=== PATIENT | female | born 1955 | race Hispanic/Latino ===

== ENCOUNTER 2017-08-08 13:23 | Emergency (ER) | payer OTHER, SELFPAY | END 2017-08-08 14:22 | disposition home or self-care (01) | LOC: ERS 13:23 | DX: S90.812A Abrasion, left foot, initial encounter (principal); I10 Essential (primary) hypertension; Z79.899 Other long term (current) drug therapy; V03.99XA Pedestrian with other conveyance injured in collision with car, pick-up truck or van, unspecified whether traffic or nontraffic accident, initial encounter | CPT/HCPCS: 99283 ==

== ENCOUNTER 2018-06-07 02:11 | Outpatient (CLI) | payer SELFPAY ==
[2018-06-07 13:08] LABS: #Eosinphils 0.2 thou/uL (0.0-0.7); #Lymphocytes 1.4 thou/uL (1.20-3.40); #Monocytes 0.6 thou/uL (0.11-0.59); #Neutrophils 7.9 thou/uL (1.40-6.50); %Basophils 0.5 % (0.0-1.0); %Eosinophils 1.8 % (0.0-10.0); %Lymphocytes 13.9 % (21.0-51.0); %Monocytes 6.3 % (0.0-10.0); %Neutrophils 77.6 % (42.0-75.0); Hemoglobin 11.9 g/dL (12.0-16.0); Mean Corpuscular HGB CONC 32.9 g/dL (32.0-36.0); Mean Corpuscular Hemoglobin 29.6 pg (27.0-31.0); Mean Corpuscular Volume 89.8 fL (78.0-98.0); Mean Platelet Volume 6.3 fL (7.4-10.4); Platelet Count 424 thou/uL (130-400); RBC Distribution Width 11.5 % (11.5-14.5); Red Blood Cell (RBC) Count 4.04 mill/uL (4.20-5.40); White Blood Cell (WBC) Count 10.2 thou/uL (4.8-10.8)
[2018-06-07 13:24] LABS: ALT (SGPT) 18 U/L (8-55); AST (SGOT) 32 U/L (5-34); Albumin 3.7 g/dL (3.4-4.8); Alkaline Phosphatase 113 U/L (40-150); Anion Gap 10 mmol/L (10-20); BUN (Urea Nitrogen) 16 mg/dL (9.8-20.1); Bilirubin, Total 0.4 mg/dL (0.2-1.2); Calc. Creatinine Clearance 0 mL/min (70-130); Calcium 8.8 mg/dL (7.8-10.44); Carbon Dioxide 24 mmol/L (23-31); Chloride 105 mmol/L (98-107); Estimated GFR-MDRD 61; Globulin 3.2 g/dL (2.4-3.5); Glucose 114 mg/dL (80-115); Potassium 3.7 mmol/L (3.5-5.1); Protein, Total 6.9 g/dL (6.0-8.3); Sodium 135 mmol/L (136-145)
--- NOTE | 2018-06-07 14:49 | EKG ---
Test Reason : Blood Pressure : / mmHG Vent. Rate : 106 BPM Atrial Rate : 106 BPM P-R Int : 126 ms QRS Dur : 072 ms QT Int : 348 ms P-R-T Axes : 046 007 016 degrees QTc Int : 462 ms Sinus tachycardia Cannot rule out Anterior infarct , age undetermined Abnormal ECG When compared with ECG of 02-JAN-2016 15:45, T wave inversion no longer evident in Lateral leads QT has lengthened Confirmed by HERMAN GOODWIN, . SRebeca ([id number]) on 06/07/2018 2:48:47 PM Referred By: DAYANA Confirmed By:DR. Nikki SUTTON MD
== END 2018-06-07 02:12 | disposition home or self-care (01) ==
LOC: LABBT 02:11
PROVIDERS: ATTEND Surgery
DX: Z01.818 Encounter for other preprocedural examination (principal); C50.919 Malignant neoplasm of unspecified site of unspecified female breast
CPT/HCPCS: 80053; 85025; 93005; 93010

== ENCOUNTER 2018-06-10 06:55 | Day surgery (SDC) | payer MEDICAID, SELFPAY ==
[2018-06-07 12:49] VITALS: BMI 30.7
[2018-06-10] MEDS ORDERED: Sodium Chloride 0.9% 10 ML ONE (07:48)
[2018-06-10] MEDS ORDERED: Lidocaine 2% w/Epinephrine 1:200K 20 ML VIAL ONE (08:36)
[2018-06-10] MEDS ORDERED: Bupivacaine/Epinephrine 0.25% 30 ML VIAL ONE (08:36)
[2018-06-10] MEDS ORDERED: Lidocaine 2% PF 5 ML VIAL ONE (08:38)
[2018-06-10] MEDS ORDERED: Propofol 500 MG/50 ML VIAL ONE (08:42)
[2018-06-10] MEDS ORDERED: Fentanyl 100 MCG/2 ML VIAL ONE (09:10)
[2018-06-10] MEDS ORDERED: Morphine 2 MG/ML SYRINGE ONE (10:07)
--- NOTE | 2018-06-10 10:12 | RAD ---
FXR Chest 1 View Portable History: [Port catheter placement] Comparison: None. Findings: Mild atelectasis at lung bases. No pneumothorax. No focal airspace consolidation. Port cath eter tip is in the cavoatrial atrial junction. Impression: Uncomplicated placement portacatheter.
[2018-06-10] MEDS ORDERED: PROPOFOL 200 MG/20 ML VIAL ONE (15:23)
--- NOTE | 2018-06-11 09:57 | OP ---
DATE OF PROCEDURE: 06/10/2018 PROCEDURE PERFORMED: Left internal jugular MediPort placement on 06/10/2018. PREOPERATIVE DIAGNOSIS: Inflammatory right breast cancer. POSTOPERATIVE DIAGNOSIS: Inflammatory right breast cancer. HISTORY: Ms. Villasenor is a 62-year-old woman with neglected inflammatory breast cancer and severe lymphedema of the right arm. She is going to begin chemotherapy soon and requires access for this placement of a MediPort on the left, uninvolved side was recommended. DESCRIPTION OF PROCEDURE: After informed consent was obtained and appropriate preoperative antibiotics were administered, the patient was taken to the operating room where she was placed in supine position and anesthesia was administered. She was prepped and draped in the standard sterile fashion. The left subclavian vein was accessed by the standard approach while the patient was in Trendelenburg. However, the flow was somewhat sluggish and the wire would not advance. Therefore, a sterile ultrasound was obtained and patent compressible left internal jugular vein accessed under direct ultrasound guidance. The flow was good and the wire threaded easily. This was confirmed by ultrasound to be in the patent compressible vessel in the neck and with the tip in the superior vena cava by fluoroscopy. The MediPort was obtained and a subcutaneous pocket created in the chest after local anesthesia was infused. The hub was secured and the MediPort tubing was tunneled from this site to the left IJ access site. The distal end was clamped. The dilator and sheath were placed over the wire, and the dilator removed leaving the sheath in place. The MediPort tubing was then advanced through the sheath and positioned with the tip in the superior vena cava. The sheath was removed and the MediPort tubing was connected to the hub in the chest. The MediPort tubing easily aspirated and easily flushed without resistance and the course of the catheter was confirmed to be smooth without kinking with the tip appropriately positioned in the superior vena cava. The skin incisions were then closed in layers with 3-0 subcutaneous and 4-0 subcuticular Monocryl suture. Dermabond dressings were placed and the patient was taken to Recovery in good condition. Estimated blood loss was minimal. There were no complications. There were no specimens. Job ID: [id number]
== END 2018-06-10 11:02 | disposition home or self-care (01) ==
LOC: SDC 06:55
PROVIDERS: ATTEND Surgery
PROC: 0JH63WZ Insertion of Totally Implantable Vascular Access Device into Chest Subcutaneous Tissue and Fascia, Percutaneous Approach (ICD-10-PCS; principal; 2018-06-10)
DX: C50.911 Malignant neoplasm of unspecified site of right female breast (principal); R59.0 Localized enlarged lymph nodes; I10 Essential (primary) hypertension; Z79.899 Other long term (current) drug therapy; Z88.5 Allergy status to narcotic agent
CPT/HCPCS: 71045; C1788; J0690; J1642; J2001; J2270; J2704; J3010

== ENCOUNTER 2018-06-14 12:30 | Outpatient (CLI) | payer MEDICAID, OTHER | END 2018-06-14 12:31 | disposition home or self-care (01) | LOC: ULT 12:30 | PROVIDERS: ATTEND Internal Medicine Hematology & Oncology | DX: Z51.11 Encounter for antineoplastic chemotherapy (principal); C50.211 Malignant neoplasm of upper-inner quadrant of right female breast; I08.2 Rheumatic disorders of both aortic and tricuspid valves; Z79.899 Other long term (current) drug therapy | CPT/HCPCS: 93306 ==

== ENCOUNTER 2018-06-24 09:03 | Outpatient (CLI) | payer MEDICAID ==
--- NOTE | 2018-06-24 10:57 | CT ---
CT THORAX WITH IV CONTRAST CT ABDOMEN AND PELVIS WITH IV CONTRAST 06/24/2018 CLINICAL INFORMATION: Newly diagnosed breast cancer. COMPARISON: None. Technique: Multiple contiguous axial CT images are obtained through the abdomen and pelvis with IV contrast. Cor onal reformatted images are provided. FINDINGS: CT thorax: Chest wall: There is a large mass seen in the right breast measuring 7.2 cm in maximal dimensions wit h plaque-like mass seen circumferentially surrounding the breast primarily on the skin surface with innumerable masses seen within the right pectoralis muscle and along the right aspect of the breast. There are masses with enlargement of the right latissimus dorsi as well as in the right serratus anterior muscles. There are also nodules/masses extending into the right upper extremity which is inc ompletely imaged on this examination. Multiple nodules/masses versus enlarged lymph nodes are also seen in the right axillary region. There are 2 enlarged left axillary lymph nodes present largest pablo suring approximately 1.4 cm in short axis dimension. There is subcutaneous edema about the breasts bilaterally as well as upper chest. Mediastinum: There is an enlarged epicardial lymph node/mass to the right of midline measuring 1.9 cm in maximal dimensions with an adjacent smaller nodular density. No additional enlarged pulmonary nodules or masses are seen in the mediastinum. The heart is enlarged. LUNGS: There is a tiny right pleural effusion and associated atelectasis. This examination is obtaine d in a shallow depth of inspiration with volume loss in the lungs bilaterally. No discrete pulmonary nodule or mass is visualized. Osseous structures: No lytic or sclerotic osseous lesions are seen. CT abdomen: Vessels: Mild atherosclerotic vascular calcifications are seen in the abdominal aorta. Portal vein:Patent Gallbladder: Distended, no obvious calcified gallbladder calculus is seen. Liver: within normal limits. Pancreas: within normal limits. Spleen: within normal limits. Adrenals: within normal limits. Kidneys: The kidneys are rotated bilaterally in a configuration which would suggest horseshoe-shaped kidney, but no definite connection including fibrous connection is seen between the kidneys. Subcentimeter too small to characterize hypodense lesions are seen in each kidney. Peritoneum: No ascites or free air; no fluid collection. Bowel: There is a moderate amount of retained fecal material seen throughout the colon. Loops of smal l bowel are normal in caliber.The appendix is visualized and normal in caliber. Mesentery and Retroperitoneum: No enlarged mesenteric or retroperitoneal lymph nodes. Abdominal Wall: There is subcutaneous edema seen about the abdomen bilaterally greater on the right. Pelvis: Reproductive Organs: There is diminished attenuation in the endometrial canal which is slightly heter ogeneous and mildly irregular. Pelvic ultrasound suggested for further evaluation. There is also a 3.3 cm low-density right adnexal cystic lesion which does not demonstrate fluid attenuation and could potentially represent a hemorrhagic cyst. This can also be further evaluated on pelvic ultrasound. Pelvis within normal limits. Bladder: within normal limits. Bones: No lytic or sclerotic osseous lesions are identified. Degenerative changes are seen in the lum bar spine. IMPRESSION: 1. Findings compatible with patient's history of breast cancer with extensive metastatic disease. Mar kedly abnormal appearance of the right breast is present with large masses occupying the majority of the right breast as well as skin surface with multiple masses seen within the pectoralis musculatu re, latissimus dorsi and serratus anterior musculature and possibly involving musculature of the upper arm which is incompletely imaged on this exam. Several small nodules are seen adjacent to the p osterior musculature right upper chest. There is bilateral axillary lymphadenopathy. There is also an enlarged lymph node/mass in the epicardial location inferiorly to the right of midline. 2. Extensive subcutaneous edema about the chest and bilateral breasts as well as involving the abdome n. 3. Enlargement of the endometrium with heterogeneous material. Pelvic ultrasound is recommended. Give n the patient's history of breast cancer, associated endometrial carcinoma cannot be entirely excluded. 4. Increased density right adnexal cystic lesion. Ultrasound examination of the pelvis is also recomm ended for further evaluation. 5. Additional findings as described above.
--- NOTE | 2018-06-24 13:26 | NM ---
Chest 2 views HISTORY: Pneumonia. Follow-up. COMPARISON: 06/08/2018. FINDINGS: Cardiac silhouette and pulmonary vasculature are unremarkable. Mediastinum is midline. Vert ically oriented linear scarring apparent at the right posterior lung base. Lungs are otherwise hyperinflated. Mediastinum is midline. Calcified granulomata are consistent with healed granulomatous disease. No lobar consolidation, pleural fluid, or pneumothorax. IMPRESSION: Linear scarring at the right lung base. No active cardiopulmonary abnormalities are demonstrated. Pulmonary hyperinflation.
[2018-06-24] MEDS ORDERED: Iopamidol 370 76% 100 ML VIAL ONE (15:00)
== END 2018-06-24 09:04 | disposition home or self-care (01) ==
LOC: NM 09:03
PROVIDERS: ATTEND Internal Medicine Hematology & Oncology
DX: C50.211 Malignant neoplasm of upper-inner quadrant of right female breast (principal); N85.00 Endometrial hyperplasia, unspecified; N83.8 Other noninflammatory disorders of ovary, fallopian tube and broad ligament; R91.8 Other nonspecific abnormal finding of lung field; J98.4 Other disorders of lung; R59.0 Localized enlarged lymph nodes; M47.816 Spondylosis without myelopathy or radiculopathy, lumbar region; I70.0 Atherosclerosis of aorta; J90 Pleural effusion, not elsewhere classified; J98.11 Atelectasis; N28.9 Disorder of kidney and ureter, unspecified
CPT/HCPCS: 71260; 74177; 78306; A9503; Q9967

== ENCOUNTER 2018-06-27 12:44 | Outpatient (CLI) | payer MEDICAID ==
--- NOTE | 2018-06-27 15:33 | PET ---
PET CT: HISTORY: A 61-year-old female with right breast cancer. Exam requested for initial staging. TECHNIQUE: PET scanning with CT attenuation correction is performed from the base of the brain to the proximal t highs following the intravenous administration of 12.6 mCi [id number] in the left antecub ital fossa. CORRELATION: CT chest, abdomen, and pelvis and whole body bone scan of 06/24/2018. FINDINGS: Hypermetabolic activity is seen in multiple right breast masses with a maximum SUV of 10. Hypermetabolic axillary lymph nodes have SUVs of 5.7 on the right and 6.2 on the left. The SUV in th e hypermetabolic right supraclavicular lymph node measures 3.3 and the right paracolic lymph node 2.8 . Soft tissue nodules in the presternal space demonstrate a maximum SUV of 3.4. There is intense uptake in the right lateral isthmus dorsi muscle with an SUV of 8.7. There are hype rmetabolic soft tissue nodules in the right posterior shoulder involving the subcutaneous fat and the right lateral thoracic wall with a maximum SUV of 5.8. No hypermetabolic pulmonary nodules, liver, or adrenal lesions are seen. There is increased uptake in the right iliac bone. There is a focal area of increased FDG localizati on in the right iliac bone with an SUV of 7.9. The CT scan used for attenuation correction demonstrates no evidence of pleural effusions, ascites, o r pericardial effusion. The cystic mass in the right adnexa noted on the previous CT scan demonstrates no abnormal FDG locali zation. This mass is again seen on the current study. IMPRESSION: Right breast malignancy with metastatic disease. POS: BLADIMIR
== END 2018-06-27 12:45 | disposition home or self-care (01) ==
LOC: PET 12:44
PROVIDERS: ATTEND Internal Medicine Hematology & Oncology
DX: C50.919 Malignant neoplasm of unspecified site of unspecified female breast (principal); C79.9 Secondary malignant neoplasm of unspecified site
CPT/HCPCS: 78815; A9552

== ENCOUNTER 2018-06-28 15:31 | Outpatient (CLI) | payer MEDICAID ==
--- NOTE | 2018-06-28 17:54 | ULT ---
TRANSABDOMINAL AND TRANSVAGINAL PELVIC ULTRASOUND: 06/28/18 INDICATION: History of advanced right sided breast cancer. Concern for possible uterine and right adnexal abnorma lity. COMPARISON: CT of the chest, abdomen and pelvis dated 06/24/18. TECHNIQUE: Napier scale, color Doppler and spectral Doppler images were obtained of the pelvis via transabdominal and transvaginal approach. FINDINGS: The uterus measures 6.1 x 5.0 x 3 cm and is heterogeneous in appearance. There is fluid distention of the endometrial canal with endometrial stripe measuring 1 cm. There is a pedunculated mixed echogen[place] mass extending from the posterior aspect of the fundus measuring approximately 1.4 x 0.5 cm. No demonstratable vascular flow is seen within the lesion. The right ovary measures 3.1 x 2.7 x 3.6 cm. There is a 3.1 cm simple cyst within the right ovary. Th e left ovary was not well seen. No free fluid is evident. IMPRESSION: 1. Prominent fluid distention of the endometrial canal with a mixed echogenicity polyp extending from the posterior fundus of the uterus into the endometrial canal. Endometrial carcinoma cannot be entirely excluded based on the provided images but polyp is favored. 2. 3.1 cm right ovarian simple cyst. POS: OFF
== END 2018-06-28 15:32 | disposition home or self-care (01) ==
LOC: ULT 15:31
PROVIDERS: ATTEND Internal Medicine Hematology & Oncology
DX: C50.211 Malignant neoplasm of upper-inner quadrant of right female breast (principal); N83.201 Unspecified ovarian cyst, right side; N85.8 Other specified noninflammatory disorders of uterus; R93.89 Abnormal findings on diagnostic imaging of other specified body structures
CPT/HCPCS: 76856; 93976

== ENCOUNTER 2018-07-05 10:51 | Day surgery (SDC) | payer MEDICAID ==
[2018-07-05] MEDS ORDERED: diphenhydrAMINE 50 MG in Sodium Chloride 0.9% 50 ML IVPB SCH (11:30)
[2018-07-05] MEDS ORDERED: Palonosetron HCl 0.25 MG in Sodium Chloride 0.9% 50 ML IVPB SCH (11:30)
[2018-07-05] MEDS ORDERED: Pertuzumab 840 MG in Sodium Chloride 0.9% 250 ML 250 ML IVPB SCH (11:30)
[2018-07-05] MEDS ORDERED: TRASTUZUMAB IVPB SCH (11:30)
[2018-07-05] MEDS ORDERED: SODIUM CHLORIDE 0.9% IVPB SCH ×3 (11:30→11:45)
[2018-07-05] MEDS ORDERED: Dexamethasone 10 MG in Sodium Chloride 0.9% 50 ML IVPB SCH (11:30)
[2018-07-05 11:40] VITALS: BP 127/66; TEMP 98.6
[2018-07-05] MEDS ORDERED: DOCETAXEL IVPB SCH ×2 (11:45)
== END 2018-07-05 16:50 | disposition home or self-care (01) ==
LOC: ONC/OP 10:51
PROVIDERS: ATTEND Internal Medicine Hematology & Oncology
DX: Z51.11 Encounter for antineoplastic chemotherapy (principal); C50.211 Malignant neoplasm of upper-inner quadrant of right female breast; Z88.5 Allergy status to narcotic agent
CPT/HCPCS: 36415; 86300; 96375; 96413; 96417; J1100; J1200; J2469; J7050; J9171; J9306; J9355

== ENCOUNTER → 2018-07-06 | Day surgery (SDC) | payer MEDICAID ==
[~2018-07-06] MED LIST: PEGFILGRASTIM-JMDB 6 MG/0.6 ML SYRINGE SQ SCH
[2018-07-06 15:20] VITALS: BP 138/75; TEMP 98
== END ==
LOC: ONC/OP 14:55
PROVIDERS: ATTEND Internal Medicine Hematology & Oncology
DX: Z51.11 Encounter for antineoplastic chemotherapy (principal); C50.211 Malignant neoplasm of upper-inner quadrant of right female breast; Z88.5 Allergy status to narcotic agent
CPT/HCPCS: 96372; Q5108

== ENCOUNTER 2018-07-10 11:44 | Day surgery (SDC) | payer MEDICAID ==
[~2018-07-10 11:44] MED LIST changes: -PEGFILGRASTIM-JMDB 6 MG/0.6 ML SYRINGE SQ SCH; +Pertuzumab 840 MG in Sodium Chloride 0.9% 250 ML 250 ML IVPB SCH; +diphenhydrAMINE 50 MG in Sodium Chloride 0.9% 50 ML IVPB SCH
[2018-07-10 12:14] VITALS: BP 142/67; TEMP 98.5
== END 2018-07-10 13:57 | disposition home or self-care (01) ==
LOC: ONC/OP 11:44
PROVIDERS: ATTEND Internal Medicine Hematology & Oncology
DX: Z51.12 Encounter for antineoplastic immunotherapy (principal); C50.211 Malignant neoplasm of upper-inner quadrant of right female breast; Z17.0 Estrogen receptor positive status [ER+]; Z88.5 Allergy status to narcotic agent
CPT/HCPCS: 96375; 96413; J1200; J7050; J9306

== ENCOUNTER 2018-07-31 10:09 | Day surgery (SDC) | payer MEDICAID ==
[~2018-07-31 10:09] MED LIST changes: +DOCETAXEL IVPB SCH; +Dexamethasone 10 MG in Sodium Chloride 0.9% 50 ML IVPB SCH; +Palonosetron HCl 0.25 MG in Sodium Chloride 0.9% 50 ML IVPB SCH; +Pertuzumab 420 MG in Sodium Chloride 0.9% 250 ML 250 ML IVPB SCH; -Pertuzumab 840 MG in Sodium Chloride 0.9% 250 ML 250 ML IVPB SCH; +SODIUM CHLORIDE 0.9% IVPB SCH; +TRASTUZUMAB IVPB SCH; -diphenhydrAMINE 50 MG in Sodium Chloride 0.9% 50 ML IVPB SCH
[2018-07-31] MEDS ORDERED: Sodium Chloride 0.9% 20 ML ONE (10:18)
[2018-07-31 10:42] VITALS: BP 137/99; TEMP 98.5
== END 2018-07-31 14:17 | disposition home or self-care (01) ==
LOC: ONC/OP 10:09
PROVIDERS: ATTEND Internal Medicine Hematology & Oncology
DX: Z51.11 Encounter for antineoplastic chemotherapy (principal); C50.211 Malignant neoplasm of upper-inner quadrant of right female breast; Z88.5 Allergy status to narcotic agent; Z79.899 Other long term (current) drug therapy
CPT/HCPCS: 36415; 80053; 82248; 83615; 84100; 84550; 96375; 96413; 96417; J1100; J1642; J2469; J7050; J9171; J9306; J9355

== ENCOUNTER 2018-08-01 12:38 | Day surgery (SDC) | payer MEDICAID ==
[~2018-08-01 12:38] MED LIST changes: -DOCETAXEL IVPB SCH; -Dexamethasone 10 MG in Sodium Chloride 0.9% 50 ML IVPB SCH; +PEGFILGRASTIM-JMDB 6 MG/0.6 ML SYRINGE SQ SCH; -Palonosetron HCl 0.25 MG in Sodium Chloride 0.9% 50 ML IVPB SCH; -Pertuzumab 420 MG in Sodium Chloride 0.9% 250 ML 250 ML IVPB SCH; -SODIUM CHLORIDE 0.9% IVPB SCH; -TRASTUZUMAB IVPB SCH
== END 2018-08-01 13:12 | disposition home or self-care (01) ==
LOC: ONC/OP 12:38
PROVIDERS: ATTEND Internal Medicine Hematology & Oncology
DX: Z51.11 Encounter for antineoplastic chemotherapy (principal); C50.211 Malignant neoplasm of upper-inner quadrant of right female breast; Z88.5 Allergy status to narcotic agent
CPT/HCPCS: 96372; Q5108

== ENCOUNTER 2018-08-09 18:09 | Inpatient (IN) | payer MEDICAID, OTHER ==
[2018-08-09 18:36] LABS: Hemoglobin 9.4 g/dL (12.0-16.0); Mean Corpuscular HGB CONC 33.2 g/dL (32.0-36.0); Mean Corpuscular Hemoglobin 28.7 pg (27.0-31.0); Mean Corpuscular Volume 86.4 fL (78.0-98.0); Mean Platelet Volume 6.5 fL (7.4-10.4); Platelet Count 339 thou/uL (130-400); RBC Distribution Width 13.9 % (11.5-14.5); Red Blood Cell (RBC) Count 3.29 mill/uL (4.20-5.40); White Blood Cell (WBC) Count 27.4 thou/uL (4.8-10.8)
[2018-08-09 18:53] LABS: Band 33 % (5-11); Lymphocytes 17 % (21-51); MDiff Complete? YES; Metamyelocyte 1 % (0-0); Monocytes 3 % (0-10); Neutrophil 46 % (42-75); Platelet Morphology Comment Appears Adequate
[2018-08-09 19:03] LABS: ALT (SGPT) 10 U/L (8-55); AST (SGOT) 14 U/L (5-34); Albumin 3.4 g/dL (3.4-4.8); Alkaline Phosphatase 197 U/L (40-150); Anion Gap 13 mmol/L (10-20); BUN (Urea Nitrogen) 8 mg/dL (9.8-20.1); Bilirubin, Total 0.3 mg/dL (0.2-1.2); Calc. Creatinine Clearance 0 mL/min (70-130); Calcium 8.2 mg/dL (7.8-10.44); Carbon Dioxide 22 mmol/L (23-31); Chloride 103 mmol/L (98-107); Estimated GFR-MDRD 74; Globulin 2.8 g/dL (2.4-3.5); Glucose 121 mg/dL (80-115); Protein, Total 6.2 g/dL (6.0-8.3); Sodium 135 mmol/L (136-145)
[2018-08-09 19:12] LABS: Potassium 2.6 mmol/L (3.5-5.1)
--- NOTE | 2018-08-09 19:27 | RAD ---
RADIOGRAPH CHEST 1 VIEW: DATE: 08/09/2018 HISTORY: 62-year-old female with fever FINDINGS: There is no airspace density, pulmonary edema, or pneumothorax. The lateral costophrenic angles are n ot effaced. Left IJ implantable vascular access port with distal tip overlying the upper portion of right atrium. IMPRESSION: No acute pulmonary findings.
[2018-08-09 19:47] LABS: Bilirubin Negative (Negative); Blood, Urine Negative (Negative); Clarity CLEAR (Clear); Glucose, Urine (Dipstick) Negative (Negative); Leukocyte Negative (Negative); Nitrite Negative (Negative); Protein, Urine (Dipstick) Negative (Neg-Trace); Specific Gravity, Urine 1.012 (1.002-1.036); Urobilinogen 0.2 mg/dL (0.2-1.0)
[2018-08-09] MEDS ORDERED: NS 0.9% w/ 40 MEQ KCL 1,000 ML IV SCH (20:00)
[2018-08-09] MEDS ORDERED: Piperacillin/Tazobactam 4.5 GM VIAL ONE (20:01)
[2018-08-09] MEDS ORDERED: Potassium Chloride 20 MEQ TAB ONE (20:01)
[2018-08-09] MEDS ORDERED: Clindamycin/D5W 900 mg/50 ml Premix Bag ONE (21:07)
[2018-08-09 23:49] VITALS: BMI 30.3
[2018-08-10] MEDS ORDERED: Ondansetron ODT 4 MG TAB PO PRN (03:15)
[2018-08-10] MEDS ORDERED: Acetaminophen 650 MG Suppository PR PRN (03:15)
[2018-08-10] MEDS ORDERED: HYDROcodone/Acetaminophen 5/325 mg Tablet PO PRN (03:16)
[2018-08-10] MEDS ORDERED: Non-Formulary Item 1 EACH (Ondansetron Hcl [Zofran] 8 MG) PO PRN (03:16)
[2018-08-10] MEDS: Sodium Chloride 0.9% 1,000 ML IV SCH ×2 (03:29→16:50)
[2018-08-10] MEDS: Piperacillin/Tazobactam 4.5 GM in Sodium Chloride 0.9% 100 ML IVPB SCH ×3 (03:36→20:26)
[2018-08-10] MEDS: Acetaminophen 325 MG TAB PO PRN ×5 (03:54→23:22)
[2018-08-10 04:27] LABS: Anion Gap 14 mmol/L (10-20); BUN (Urea Nitrogen) 7 mg/dL (9.8-20.1); Calc. Creatinine Clearance 77 mL/min (70-130); Calcium 7.3 mg/dL (7.8-10.44); Carbon Dioxide 20 mmol/L (23-31); Chloride 114 mmol/L (98-107); Estimated GFR-MDRD 85; Glucose 105 mg/dL (80-115); Potassium 3.4 mmol/L (3.5-5.1); Sodium 145 mmol/L (136-145)
[2018-08-10 04:47] LABS: Band 32 % (5-11); Eosinophils 1 % (0-10); Hemoglobin 7.7 g/dL (12.0-16.0); Lymphocytes 12 % (21-51); MDiff Complete? YES; Mean Corpuscular Volume 87.4 fL (78.0-98.0); Mean Platelet Volume 6.8 fL (7.4-10.4); Metamyelocyte 2 % (0-0); Monocytes 3 % (0-10); Neutrophil 50 % (42-75); Platelet Count 269 thou/uL (130-400); Platelet Morphology Comment Appears Adequate; Polychromasia SLIGHT = 2-3 cells (100X) (0-2/hpf); RBC Distribution Width 13.7 % (11.5-14.5); Red Blood Cell (RBC) Count 2.75 mill/uL (4.20-5.40); White Blood Cell (WBC) Count 19.2 thou/uL (4.8-10.8)
[2018-08-10] MEDS: Lisinopril 20 MG TAB PO SCH (09:42)
[2018-08-10] MEDS: Enoxaparin Sodium 40 MG/0.4 ML SYRINGE SC SCH (09:42)
--- NOTE | 2018-08-10 12:50 | PDOC.PN ---
- Subjective Encounter Start Date: 08/10/18 Encounter Start Time: 12:48 Ms. Villasenor was seen today in follow-up of Skin infections and sepsis. She says she is feeling better. - Objective Resuscitation Status - Order Detail: 08/10/18 03:15 Resuscitation Status Routine Resuscitation Status: FULL: Full Resuscitation MAR Reviewed: Yes Vital Signs & Weight: Vital Signs (12 hours) Temp Pulse Resp BP Pulse Ox 08/10/18 11:50 98.4 F 80 18 110/57 L 98 08/10/18 09:39 80 110/57 L 08/10/18 08:00 98.3 F 78 18 96/57 L 97 08/10/18 03:37 99.0 F 90 16 102/57 L 96 Weight Admit Weight 130 lb 6.4 oz Weight 130 lb 6.4 oz I&O: 08/09/18 08/10/18 08/11/18 06:59 06:59 06:59 Intake Total 1400 Balance 1400 Result Diagrams: 08/10/18 03:59 08/10/18 03:59 Phys Exam - Physical Examination HEENT: PERRLA Respiratory: no wheezing, no rales, no rhonchi, clear to auscultation bilateral Cardiovascular: RRR, no significant murmur, no rub Gastrointestinal: soft, non-tender, no distention, positive bowel sounds Musculoskeletal: edema present + swelling of the right upper extremity Neurological: non-focal, normal sensation, moves all 4 limbs Psychiatric: normal affect, A&O x 3 Deviation from normal: + multiple pustules of the left upper extremity, and both legs Dx/Plan (1) Sepsis Code(s): A41.9 - SEPSIS, UNSPECIFIED ORGANISM Status: Acute (2) Skin infection, bacterial Code(s): L08.9 - LOCAL INFECTION OF THE SKIN AND SUBCUTANEOUS TISSUE, UNSP; B96.89 - OTH BACTERIAL AGENTS THE CAUSE OF DISEASES CLASSD ELSWHR Status: Acute (3) Breast cancer Status: Acute (4) Hypokalemia Code(s): E87.6 - HYPOKALEMIA Status: Acute (5) Anemia Code(s): D64.9 - ANEMIA, UNSPECIFIED Status: Acute - Plan * Bacterial skin infection- likely due to staph- concern is this may be a disseminated infection due to her immunosuppresion * Continue Vancomycin and Zosyn * Will also unroof one of the lesions and send this for culture * Hypokalemia- continue to replace potassium. * Anemia- I suspect due to cancer, transfuse for HGB less than 7.0
[2018-08-10] MEDS ORDERED: Potassium Chloride 20 MEQ TAB PO SCH (13:45)
[2018-08-10 13:59] LABS: Hemoglobin 8.1 g/dL (12.0-16.0)
[2018-08-10] MEDS ORDERED: Vancomycin HCl 1 GM in Premix Bag 1 BAG IVPB SCH (22:00)
[2018-08-11] MEDS: Piperacillin/Tazobactam 4.5 GM in Sodium Chloride 0.9% 100 ML IVPB SCH ×3 (04:37→20:38)
[2018-08-11 05:42] LABS: Anion Gap 10 mmol/L (10-20); BUN (Urea Nitrogen) 4 mg/dL (9.8-20.1); Calc. Creatinine Clearance 80 mL/min (70-130); Calcium 7.9 mg/dL (7.8-10.44); Carbon Dioxide 21 mmol/L (23-31); Chloride 112 mmol/L (98-107); Estimated GFR-MDRD 89; Glucose 88 mg/dL (80-115); Potassium 3.6 mmol/L (3.5-5.1); Sodium 139 mmol/L (136-145)
[2018-08-11 06:03] LABS: Band 21 % (5-11); Eosinophils 1 % (0-10); Hemoglobin 7.8 g/dL (12.0-16.0); Lymphocytes 14 % (21-51); MDiff Complete? YES; Mean Corpuscular Hemoglobin 28.1 pg (27.0-31.0); Mean Corpuscular Volume 87.8 fL (78.0-98.0); Mean Platelet Volume 6.7 fL (7.4-10.4); Metamyelocyte 1 % (0-0); Monocytes 6 % (0-10); Myelocyte 1 % (0-0); Neutrophil 56 % (42-75); Platelet Count 253 thou/uL (130-400); Platelet Morphology Comment Appears Adequate; Polychromasia SLIGHT = 2-3 cells (100X) (0-2/hpf); RBC Distribution Width 13.7 % (11.5-14.5); Red Blood Cell (RBC) Count 2.79 mill/uL (4.20-5.40); White Blood Cell (WBC) Count 14.9 thou/uL (4.8-10.8)
[2018-08-11] MEDS: Enoxaparin Sodium 40 MG/0.4 ML SYRINGE SC SCH (08:31)
[2018-08-11] MEDS: Acetaminophen 325 MG TAB PO PRN ×4 (08:32→22:23)
[2018-08-11] MEDS: Lisinopril 20 MG TAB PO SCH (08:34)
[2018-08-11] MEDS: Sodium Chloride 0.9% 1,000 ML IV SCH (14:01)
--- NOTE | 2018-08-11 17:07 | PDOC.PN ---
- Subjective Encounter Start Date: 08/11/18 Encounter Start Time: 17:06 Ms. Villasenor was seen today in follow-up of staph skin infection. She still is having a headache off and on, otherwise she is ok. - Objective Resuscitation Status - Order Detail: 08/10/18 03:15 Resuscitation Status Routine Resuscitation Status: FULL: Full Resuscitation MAR Reviewed: Yes Vital Signs & Weight: Vital Signs (12 hours) Temp Pulse Resp BP Pulse Ox 08/11/18 08:00 96 08/11/18 07:55 98.4 F 78 16 119/67 96 Weight Admit Weight 130 lb 6.4 oz Weight 130 lb 6.4 oz I&O: 08/10/18 08/11/18 08/12/18 06:59 06:59 06:59 Intake Total 1400 3150 Balance 1400 3150 Result Diagrams: 08/11/18 04:30 08/11/18 04:30 Phys Exam - Physical Examination HEENT: PERRLA Respiratory: no wheezing, no rales, no rhonchi, clear to auscultation bilateral Cardiovascular: RRR, no significant murmur, no rub Gastrointestinal: soft, non-tender, no distention, positive bowel sounds + multiple pustules on the upper and lower extremities, which are beginning to crust over Dx/Plan (1) Sepsis Code(s): A41.9 - SEPSIS, UNSPECIFIED ORGANISM Status: Acute (2) Skin infection, bacterial Code(s): L08.9 - LOCAL INFECTION OF THE SKIN AND SUBCUTANEOUS TISSUE, UNSP; B96.89 - OTH BACTERIAL AGENTS THE CAUSE OF DISEASES CLASSD ELSWHR Status: Acute (3) Breast cancer Status: Acute (4) Hypokalemia Code(s): E87.6 - HYPOKALEMIA Status: Acute (5) Anemia Code(s): D64.9 - ANEMIA, UNSPECIFIED Status: Acute - Plan * Staph skin infection- continue Vancomycin- and can discontinue Zosyn- await sensitivities from wound culture * Breast cancer- stable, undergoing treatment * Anemia in malignancy- stable * Hopefully home tomorrow.
[2018-08-11] MEDS: Promethazine 25 MG TAB PO PRN (20:37)
[2018-08-11 21:23] LABS: Vancomycin, Trough 5.3 ug/mL
[2018-08-11] MEDS ORDERED: Vancomycin HCl 1.5 GM in Sodium Chloride 0.9% 250 ML 300 ML IVPB SCH (22:00)
[2018-08-12] MEDS: Promethazine 25 MG TAB PO PRN ×4 (02:46→22:58)
[2018-08-12] MEDS: Acetaminophen 325 MG TAB PO PRN ×5 (02:47→22:58)
[2018-08-12] MEDS: Piperacillin/Tazobactam 4.5 GM in Sodium Chloride 0.9% 100 ML IVPB SCH (03:08)
[2018-08-12 03:55] LABS: #Eosinphils 0.1 thou/uL (0.0-0.7); #Lymphocytes 1.9 thou/uL (1.20-3.40); #Monocytes 0.6 thou/uL (0.11-0.59); #Neutrophils 10.5 thou/uL (1.40-6.50); %Basophils 0.2 % (0.0-1.0); %Eosinophils 0.7 % (0.0-10.0); %Lymphocytes 14.5 % (21.0-51.0); %Monocytes 4.4 % (0.0-10.0); %Neutrophils 80.1 % (42.0-75.0); Mean Corpuscular HGB CONC 31.9 g/dL (32.0-36.0); Mean Corpuscular Hemoglobin 27.8 pg (27.0-31.0); Mean Corpuscular Volume 87.2 fL (78.0-98.0); Mean Platelet Volume 6.8 fL (7.4-10.4); Platelet Count 242 thou/uL (130-400); RBC Distribution Width 13.7 % (11.5-14.5); Red Blood Cell (RBC) Count 2.88 mill/uL (4.20-5.40); White Blood Cell (WBC) Count 13.1 thou/uL (4.8-10.8)
[2018-08-12 04:08] LABS: Anion Gap 8 mmol/L (10-20); BUN (Urea Nitrogen) 6 mg/dL (9.8-20.1); Calc. Creatinine Clearance 80 mL/min (70-130); Calcium 8.1 mg/dL (7.8-10.44); Carbon Dioxide 22 mmol/L (23-31); Chloride 111 mmol/L (98-107); Estimated GFR-MDRD 89; Glucose 99 mg/dL (80-115); Potassium 3.4 mmol/L (3.5-5.1); Sodium 138 mmol/L (136-145)
--- NOTE | 2018-08-12 08:15 | HP ---
PRIMARY CARE DOCTOR: The patient goes to [facility]. CODE STATUS: Full code. TIME OF EVALUATION: 2:30 a.m. CHIEF COMPLAINT: Fever. HISTORY OF PRESENT ILLNESS: This is a 62-year-old female patient, past medical history of breast cancer, actively in the right breast, came to the hospital after having fever that started around 5:00 p.m., temperature of 101 with no clear triggers, no alleviating factors. As noted, the patient has associated right breast open wound that is nonhealing secondary to the breast cancer and also some pustular lesion in the legs. The symptoms were severe, probably triggered by overt infection of the breast cancer or pustular skin. No alleviating factors. REVIEW OF SYSTEMS: CONSTITUTIONAL: The patient has fever, chills, generalized weakness. RESPIRATORY: No cough, sputum production, or shortness of breath. CARDIOVASCULAR: No chest pain or palpitations. GASTROINTESTINAL: No nausea, no vomiting, diarrhea, or abdominal pain. [employer]: No dizziness, headache, or feeling lightheaded. GENITOURINARY: No burning on urination. EXTREMITIES: No leg swelling. SKIN: The patient has large open nonhealing wound in the right breast that seems to be secondary to overt infection of breast cancer and also has pustular disease in the lower extremities. All other systems were reviewed and negative except for the findings mentioned above. PAST MEDICAL HISTORY: The patient has a history of hypertension, breast cancer. PAST SURGICAL HISTORY: Surgical history of . PSYCHIATRIC HISTORY: No previous psych history. SOCIAL HISTORY: Denies alcohol use. No drug use. No smoking history. FAMILY HISTORY: The patient has a family history of breast cancer. KNOWN ALLERGIES: Codeine. REPORTED MEDICATIONS: 1. Lisinopril. 2. Flexeril. 3. Ibuprofen. 4. Zofran. 5. Promethazine. 6. Cephalexin. 7. Hydrocodone. 8. Acetaminophen. PHYSICAL EXAMINATION: VITAL SIGNS: On presentation, blood pressure 105/56, heart rate 111, respiratory rate was 20, temperature 99.6. Pain was 0/10, oxygen saturation was 98% on room air. GENERAL APPEARANCE: The patient seems ill, with loss of air. Alert, oriented, not in any acute distress. HEENT: Eyes, normal conjunctivae. Moist oral mucosa. Anicteric. No JVD. RESPIRATORY: Bilateral air entry. No rales or wheezes. Symmetric expansion. CARDIOVASCULAR: Normal rate, regular rhythm. No murmurs. No gallop. No edema. CHEST: The patient has right breast nonhealing wound that is extensive, might be overly infected. ABDOMEN: Soft. Normal bowel sounds. MUSCULOSKELETAL: Baseline range of motion and strength. SKIN: Warm, intact. No pallor. No rash. No redness except for the right breast , there is a large nonhealing wound that seems to be overly infected and also pustular disease in the lower extremities. Capillary refill seems to be intact. NEURO: No evidence of any new focal weakness. Cranial nerves seem to be intact. PSYCH: The patient is in good mood. No anxiety. Optimal judgment. IMAGING: EKG was reviewed. The patient had normal sinus rhythm at the rate of 100, IN 126, QRS 82, QT corrected 399. Chest x-ray was reviewed. The patient has no acute pulmonary findings. LABORATORY DATA: Reviewed. The patient has white count 27, hemoglobin 9.4, MCV 86.4, platelet count 339, bandemia of 33. Sodium 135, potassium 2.6, that came back to 3.4 in the 2nd draw, carbon dioxide 22, anion gap 13, BUN 8, creatinine 0.79 , GFR 74, glucose 121, lactic acid 1.3, calcium 8.2. LFTs were negative. Urine was negative. ASSESSMENT AND PLAN: The patient will be placed in the hospital with the following medical problems. 1. Sepsis. The patient has fever, the patient has tachycardia, the source might be soft tissue infection. The patient has right breast with extended nonhealing wound and also some pustular disease in the lower extremities, might be due to staph/ strep infection. We will place the patient on broad-spectrum antibiotics. We will follow cultures. We will put Wound Care consult to see the patient. We will adjust treatment as per sensitivity. 2. Chronic normocytic anemia, there has been some drop in the hemoglobin, could be illusional since old values are down, we will recheck hemoglobin again at 12. 3. Hypertension, is controlled, chronic. We will reconcile home medications. We will not treat aggressively since the patient has underlying sepsis. 4. Nonhealing right breast wound. Wound Care has been called, this seems to be secondary to breast cancer. 5. Hypokalemia on presentation that was moderate with potassium of 2.6. This has been corrected to 3.4. Continue to monitor electrolytes and adjust as needed. 6. Hyponatremia, sodium 135 which is mild, it was corrected in the 2nd draw. This is resolved. 7. Hyperglycemia. This is likely secondary to acute physical distress, there is correction of this value too, so no need for any further intervention. 8. History of breast cancer, receiving chemo. Need to be followed with Oncology, this can be done as outpatient. 9. Deep venous thrombosis prophylaxis. Job ID: [id number] [facility]
[2018-08-12] MEDS: Enoxaparin Sodium 40 MG/0.4 ML SYRINGE SC SCH (08:32)
[2018-08-12] MEDS: Lisinopril 20 MG TAB PO SCH (08:32)
--- NOTE | 2018-08-12 10:33 | PDOC.PN ---
- Subjective Encounter Start Date: 08/12/18 Encounter Start Time: 10:31 Ms. Villasenor was sen today in follow-up of staph skin infection. she is beginning to feel better. She does not have any new complaints. - Objective Resuscitation Status - Order Detail: 08/10/18 03:15 Resuscitation Status Routine Resuscitation Status: FULL: Full Resuscitation MAR Reviewed: Yes Vital Signs & Weight: Vital Signs (12 hours) Temp Pulse Resp BP BP Pulse Ox 08/12/18 08:32 138/73 08/12/18 08:20 97.4 F L 78 18 138/73 98 08/12/18 08:00 98 08/12/18 03:08 99.5 F 92 18 122/59 L 96 08/12/18 00:01 98.9 F 82 16 126/62 95 Weight Admit Weight 130 lb 6.4 oz Weight 130 lb 6.4 oz I&O: 08/11/18 08/12/18 08/13/18 06:59 06:59 06:59 Intake Total 3150 480 980 Balance 3150 480 980 Result Diagrams: 08/12/18 03:00 08/12/18 03:00 Phys Exam - Physical Examination HEENT: PERRLA Respiratory: no wheezing, no rales, no rhonchi, clear to auscultation bilateral Cardiovascular: RRR, no significant murmur, no rub Gastrointestinal: soft, non-tender, no distention, positive bowel sounds Musculoskeletal: no edema, pulses present small pustules on the upper and lower extemities, these have scabbed over erythematous base Neurological: non-focal Dx/Plan (1) Sepsis Code(s): A41.9 - SEPSIS, UNSPECIFIED ORGANISM Status: Acute (2) Skin infection, bacterial Code(s): L08.9 - LOCAL INFECTION OF THE SKIN AND SUBCUTANEOUS TISSUE, UNSP; B96.89 - OTH BACTERIAL AGENTS THE CAUSE OF DISEASES CLASSD ELSWHR Status: Acute (3) Breast cancer Status: Acute (4) Hypokalemia Code(s): E87.6 - HYPOKALEMIA Status: Acute (5) Anemia Code(s): D64.9 - ANEMIA, UNSPECIFIED Status: Acute - Plan * MSSA skin infection with sepsis- culture is growing Methacillin sensitive staph- will change her antibiotics to Rocephin * Her WBC count is steadily coming down, but is not yet normal. Hopefully if it is continuing to drop, she can be discharge home on Kelfex * Breast Cancer, currently undergoing treatment- stable . * Hypokalemia- continue to replace- and will check a serum magnesium with the AM blood draw * HTN- blood pressure is stable
[2018-08-12] MEDS ORDERED: Potassium Chloride 20 MEQ TAB PO SCH (10:45)
[2018-08-12] MEDS: cefTRIAXone\\ROCEPHIN 1 GM in Sodium Chloride 0.9% 100 ML IVPB SCH (11:22)
[2018-08-13] MEDS: Acetaminophen 325 MG TAB PO PRN ×2 (03:44→10:47)
[2018-08-13] MEDS: Promethazine 25 MG TAB PO PRN (05:07)
[2018-08-13 06:11] LABS: #Eosinphils 0.1 thou/uL (0.0-0.7); #Lymphocytes 2.2 thou/uL (1.20-3.40); #Monocytes 0.6 thou/uL (0.11-0.59); #Neutrophils 9.7 thou/uL (1.40-6.50); %Basophils 0.4 % (0.0-1.0); %Eosinophils 0.6 % (0.0-10.0); %Lymphocytes 17.2 % (21.0-51.0); %Monocytes 4.5 % (0.0-10.0); %Neutrophils 77.2 % (42.0-75.0); Hemoglobin 8.7 g/dL (12.0-16.0); Mean Corpuscular HGB CONC 32.3 g/dL (32.0-36.0); Mean Corpuscular Hemoglobin 27.9 pg (27.0-31.0); Mean Corpuscular Volume 86.7 fL (78.0-98.0); Mean Platelet Volume 6.8 fL (7.4-10.4); Platelet Count 239 thou/uL (130-400); RBC Distribution Width 13.6 % (11.5-14.5); White Blood Cell (WBC) Count 12.6 thou/uL (4.8-10.8)
[2018-08-13 06:31] LABS: Anion Gap 10 mmol/L (10-20); BUN (Urea Nitrogen) 4 mg/dL (9.8-20.1); Calc. Creatinine Clearance 88 mL/min (70-130); Calcium 8.4 mg/dL (7.8-10.44); Carbon Dioxide 23 mmol/L (23-31); Chloride 110 mmol/L (98-107); Estimated GFR-MDRD Greater than 90; Glucose 92 mg/dL (80-115); Magnesium 1.8 mg/dL (1.6-2.6); Potassium 3.8 mmol/L (3.5-5.1); Sodium 139 mmol/L (136-145)
[2018-08-13] MEDS: Lisinopril 20 MG TAB PO SCH (09:02)
[2018-08-13] MEDS: Enoxaparin Sodium 40 MG/0.4 ML SYRINGE SC SCH (09:02)
[2018-08-13] MEDS: cefTRIAXone\\ROCEPHIN 1 GM in Sodium Chloride 0.9% 100 ML IVPB SCH (10:47)
--- NOTE | 2018-08-13 11:23 | PDOC.PN ---
- Subjective Encounter Start Date: 08/13/18 Encounter Start Time: 11:22 Ms. Villasenor was seen today in follow-up of Staph skin infection. She is feeling better. - Objective Resuscitation Status - Order Detail: 08/10/18 03:15 Resuscitation Status Routine Resuscitation Status: FULL: Full Resuscitation MAR Reviewed: Yes Vital Signs & Weight: Vital Signs (12 hours) Temp Pulse Resp BP BP Pulse Ox 08/13/18 09:02 138/73 08/13/18 08:00 98 08/13/18 07:51 98.6 F 81 18 136/69 98 08/13/18 03:40 98.3 F 08/12/18 23:33 98.5 F Weight Admit Weight 130 lb 6.4 oz Weight 130 lb 6.4 oz I&O: 08/12/18 08/13/18 08/14/18 06:59 06:59 06:59 Intake Total 480 3300 Balance 480 3300 Result Diagrams: 08/13/18 05:14 08/13/18 05:14 Phys Exam - Physical Examination HEENT: PERRLA Respiratory: no wheezing, no rales, no rhonchi, clear to auscultation bilateral Cardiovascular: RRR, no significant murmur, no rub Gastrointestinal: soft, non-tender, no distention, positive bowel sounds Deviation from normal: + skin changes are improving Dx/Plan (1) Sepsis Code(s): A41.9 - SEPSIS, UNSPECIFIED ORGANISM Status: Acute (2) Skin infection, bacterial Code(s): L08.9 - LOCAL INFECTION OF THE SKIN AND SUBCUTANEOUS TISSUE, UNSP; B96.89 - OTH BACTERIAL AGENTS THE CAUSE OF DISEASES CLASSD ELSWHR Status: Acute (3) Breast cancer Status: Acute (4) Hypokalemia Code(s): E87.6 - HYPOKALEMIA Status: Acute (5) Anemia Code(s): D64.9 - ANEMIA, UNSPECIFIED Status: Acute - Plan * Staph skin infection- much improved * she is stable for discharge home.
[2018-08-13 11:52] VITALS: BP 121/70; TEMP 98
--- NOTE | 2018-08-13 22:14 | DIS ---
DATE OF ADMISSION: 08/09/2018 DATE OF DISCHARGE: 08/13/2018 PRIMARY CARE: At the [facility]. DISCHARGE DISPOSITION: Home. DISCHARGE DIAGNOSES: 1. Methicillin-sensitive Staphylococcus aureus skin infection. 2. Sepsis secondary to #1. 3. Hypertension. 4. Breast cancer. DISCHARGE MEDICATIONS: Keflex 500 mg twice a day for 10 days as well as Phenergan 25 mg p.o. q.8 hours p.r.n. nausea, vomiting. Lisinopril 20 mg daily, ibuprofen 800 mg q.8 as needed, and [place] 5/325 q.6 as needed. CODE STATUS: Full code. ALLERGIES: CODEINE. HOSPITAL COURSE: Ms. Villasenor is a very pleasant 62-year-old female, who presented to the emergency room after she noticed a pustule on her arms and lower extremities as well as fever. She was admitted and started on IV broad-spectrum antibiotics. One of the lesions was unroofed and it grew out Staph aureus which was methicillin sensitive. Blood cultures were negative 2/2. She improved over the course of the next few days. She had a significant leukocytosis with a white blood cell count as high as 27,400. At the time of discharge, it had gone down to 12,600. She was afebrile and tolerating the medication and therefore, she will be discharged home today. She was told to follow up within the next 3-5 days. Job ID: [id number]
== END 2018-08-13 12:35 | disposition home or self-care (01) | DRG 872 ==
LOC: ERS 18:09 → ONC 20:46
PROVIDERS: ADMIT Hospitalist; ATTEND Hospitalist
DX: A41.01 Sepsis due to Methicillin susceptible Staphylococcus aureus (principal); E87.1 Hypo-osmolality and hyponatremia; C50.911 Malignant neoplasm of unspecified site of right female breast; I10 Essential (primary) hypertension; R73.9 Hyperglycemia, unspecified; L08.9 Local infection of the skin and subcutaneous tissue, unspecified; E87.6 Hypokalemia; D63.0 Anemia in neoplastic disease; Z88.5 Allergy status to narcotic agent; Z79.899 Other long term (current) drug therapy
CPT/HCPCS: 36415; 71045; 80048; 80053; 80202; 81003; 83605; 83735; 85025; 87040; 87070; 87077; 87186; 87205; 93005; 96365; 96366; 96367; 96368; J0696; J1650; J2543; J3370; J3480; J3490; J7050; Q0169

== ENCOUNTER 2018-08-19 09:36 | Day surgery (SDC) | payer OTHER ==
[~2018-08-19 09:36] MED LIST changes: +DOCETAXEL IVPB SCH; -PEGFILGRASTIM-JMDB 6 MG/0.6 ML SYRINGE SQ SCH; +Palonosetron HCl 0.25 MG in Sodium Chloride 0.9% 50 ML IVPB SCH; +Pertuzumab 420 MG in Sodium Chloride 0.9% 250 ML 250 ML IVPB SCH; +SODIUM CHLORIDE 0.9% IVPB SCH; +TRASTUZUMAB IVPB SCH
[2018-08-19 10:05] VITALS: BP 136/64; TEMP 98.2
[2018-08-19] MEDS ORDERED: Sodium Chloride 0.9% 20 ML ONE (10:15)
== END 2018-08-19 14:56 | disposition home or self-care (01) ==
LOC: ONC/OP 09:36
PROVIDERS: ATTEND Internal Medicine Hematology & Oncology
DX: Z51.11 Encounter for antineoplastic chemotherapy (principal); C50.211 Malignant neoplasm of upper-inner quadrant of right female breast; Z88.5 Allergy status to narcotic agent; Z79.899 Other long term (current) drug therapy
CPT/HCPCS: 36415; 80053; 82248; 83615; 84100; 84550; 96375; 96413; 96417; J1100; J1642; J2469; J7050; J9171; J9306; J9355

== ENCOUNTER 2018-08-20 13:45 | Day surgery (SDC) | payer OTHER ==
[~2018-08-20 13:45] MED LIST changes: -DOCETAXEL IVPB SCH; +PEGFILGRASTIM-JMDB 6 MG/0.6 ML SYRINGE SQ SCH; -Palonosetron HCl 0.25 MG in Sodium Chloride 0.9% 50 ML IVPB SCH; -Pertuzumab 420 MG in Sodium Chloride 0.9% 250 ML 250 ML IVPB SCH; -SODIUM CHLORIDE 0.9% IVPB SCH; -TRASTUZUMAB IVPB SCH
[2018-08-20 14:23] VITALS: BP 114/61; TEMP 98.5
== END 2018-08-20 14:23 | disposition home or self-care (01) ==
LOC: ONC/OP 13:45
PROVIDERS: ATTEND Internal Medicine Hematology & Oncology
DX: Z51.11 Encounter for antineoplastic chemotherapy (principal); C50.211 Malignant neoplasm of upper-inner quadrant of right female breast; Z88.5 Allergy status to narcotic agent
CPT/HCPCS: 96372; Q5108

== ENCOUNTER 2018-08-23 21:45 | Inpatient (IN) | payer MEDICAID, OTHER ==
--- NOTE | 2018-08-23 22:19 | RAD ---
XR Chest 1 View Portable History: Fever Comparison: Radiograph 08/09/2018 Findings: Lungs are hypoinflated. Port catheter tip sits at the inferior SVC. No lung consolidation. No pneumothorax or effusion. No acute osseous abnormality. Impression: No evidence for pneumonia.
[2018-08-23 22:49] LABS: ALT (SGPT) 13 U/L (8-55); AST (SGOT) 9 U/L (5-34); Albumin 3.2 g/dL (3.4-4.8); Alkaline Phosphatase 111 U/L (40-150); Anion Gap 12 mmol/L (10-20); BUN (Urea Nitrogen) 16 mg/dL (9.8-20.1); Bilirubin, Total 0.6 mg/dL (0.2-1.2); Calc. Creatinine Clearance 0 mL/min (70-130); Calcium 7.7 mg/dL (7.8-10.44); Carbon Dioxide 19 mmol/L (23-31); Chloride 103 mmol/L (98-107); Estimated GFR-MDRD 63; Globulin 2.3 g/dL (2.4-3.5); Glucose 198 mg/dL (80-115); Potassium 4.1 mmol/L (3.5-5.1); Protein, Total 5.5 g/dL (6.0-8.3); Sodium 130 mmol/L (136-145)
[2018-08-23 22:53] LABS: Band 3 % (5-11); Hemoglobin 8.3 g/dL (12.0-16.0); Lymphocytes 15 % (21-51); MDiff Complete? YES; Mean Corpuscular HGB CONC 32.4 g/dL (32.0-36.0); Mean Corpuscular Volume 86.5 fL (78.0-98.0); Mean Platelet Volume 7.2 fL (7.4-10.4); Neutrophil 82 % (42-75); Platelet Count 214 thou/uL (130-400); RBC Distribution Width 14.2 % (11.5-14.5); Red Blood Cell (RBC) Count 2.95 mill/uL (4.20-5.40); White Blood Cell (WBC) Count 2.6 thou/uL (4.8-10.8)
[2018-08-24] MEDS ORDERED: Cefepime 2 GM VIAL ONE (00:07)
[2018-08-24 00:12] LABS: Bilirubin Negative (Negative); Blood, Urine Negative (Negative); Clarity CLEAR (Clear); Glucose, Urine (Dipstick) Negative (Negative); Leukocyte Negative (Negative); Nitrite Negative (Negative); Protein, Urine (Dipstick) Trace mg/dL (Neg-Trace); Urobilinogen 0.2 mg/dL (0.2-1.0)
[2018-08-24] MEDS ORDERED: Acetaminophen 500 MG TAB ONE (01:21)
[2018-08-24 02:27] LABS: Lactic Acid 2.6 mmol/L (0.5-2.2)
[2018-08-24 04:40] VITALS: BMI 31.9
[2018-08-24] MEDS ORDERED: Promethazine HCl 25 MG in Sodium Chloride 0.9% 50 ML IVPB PRN (05:29)
[2018-08-24] MEDS ORDERED: Sodium Chloride 0.9% 1,000 ML IV SCH (05:30)
[2018-08-24] MEDS ORDERED: Ondansetron ODT 4 MG TAB PO PRN (08:15)
[2018-08-24] MEDS ORDERED: Loperamide HCl 2 MG CAP PO PRN (08:15)
[2018-08-24] MEDS ORDERED: Loratadine 10 MG TAB PO PRN (08:15)
[2018-08-24] MEDS ORDERED: Acetaminophen 325 MG TAB PO PRN (08:15)
[2018-08-24] MEDS ORDERED: Promethazine 25 MG TAB PO PRN (08:15)
[2018-08-24] MEDS ORDERED: hydrALAZINE 20 MG/ML VIAL SLOW IVP PRN (08:15)
[2018-08-24] MEDS ORDERED: Ondansetron PF 4 MG/2 ML Vial IVP PRN (08:15)
[2018-08-24] MEDS ORDERED: Zolpidem Tartrate 5 MG TAB PO PRN (08:15)
[2018-08-24] MEDS ORDERED: Diabetic Tussin 200 MG/10 ML UDCUP PO PRN (08:15)
[2018-08-24] MEDS ORDERED: Sodium Chloride 0.65% Nasal 44 ML BOT EA NARE PRN (08:15)
[2018-08-24] MEDS ORDERED: Senokot S 8.6-50 MG TAB PO PRN (08:15)
[2018-08-24] MEDS ORDERED: Cepastat Lozenges 1 LOZ PO PRN (08:15)
[2018-08-24] MEDS ORDERED: Bisacodyl 10 MG SUPP PR PRN (08:15)
--- NOTE | 2018-08-24 08:34 | CT ---
PRELIMINARY REPORT/[facility]/AFTER HOURS PROCEDURE Addendum created by Kapil Poole MD on 08/24/2018 8:17 AM Central Time ([place] & [place]) The above report was read and discussed with the patient's nurse who is to inform the attending physician of the above-described findings. 08/24/2018 7:32 AM CDT. Nurse RN Rosalina Lopez As always, we are available for consultation at all times. The above was discussed with Dr. Jasso at 8:17 AM central standard time. Initial Report created on 08/24/2018 6:55 AM Central Time ([place] & [place]) EXAM: CT Angiography Chest With Contrast EXAM DATE/TIME: 08/24/2018 3:34 AM CLINICAL HISTORY: 62 years old, female; Abnormal findings; Other: High d dimer; Patient HX: Elevated d-dimer 1.07. F62 presents to ED C/O fever, onset this evening. PT has breast cancer, last chemo treatment was 4 days ago. PT denies cough, pain, or dysuria. PT called Dr. Tavera and was told to come to ED. PT max temp of 102.5, took 800 ibuprofen before arrival. TECHNIQUE: Imaging protocol: Axial computed tomographic angiography images of the chest with intravenous contrast using CT angiography protocol. Coronal and sagittal reformatted images were created and reviewed. 3D rendering: MIP reconstructed images were created and reviewed. COMPARISON: No relevant prior studies available. FINDINGS: Pulmonary arteries: No dissection. No visualized embolism as characterized to the proximal segmental level. Aorta: Unremarkable. No aortic aneurysm. No aortic dissection. Lungs: Mild basilar atelectasis on the right. Pleural space: Unremarkable. No pneumothorax. No pleural effusion. Heart: No pericardial effusion Gallbladder and bile ducts: - Severely thickened gallbladder with edema and inflammation in the pericholecystic fat. Extensive edema. Air is present in the gallbladder fossa. Findings consistent wi th cholecystitis and gangrenous cholecystitis. Lymph nodes: Unremarkable. No enlarged lymph nodes. Bones/joints: Unremarkable. No acute fracture. Soft tissues: Skin thickening and soft tissue mass like density right breast consistent with the give n history. IMPRESSION: 1. - Severely thickened gallbladder with edema and inflammation in the pericholecystic fat. Extensive edema. Air is present in the gallbladder fossa. Findings consistent with cholecystitis/gangrenous cholecystitis. 2. No dissection. No visualized embolism as characterized to the proximal segmental level. 3. Skin thickening and soft tissue mass like density right breast consistent with the given history. 4. Mild basilar atelectasis on the right. Mild atelectasis within the lingula. Thank you for allowing us to participate in the care of your patient. Dictated and Authenticated by: Kapil Poole MD 08/24/2018 6:55 AM Central Time ([place] & [place]) FINAL REPORT CT PULMONARY ANGIOGRAM WITH IV CONTRAST AND THREE DIMENSIONAL MIP RECONSTRUCTIONS: PROVIDED CLINICAL HISTORY: Fever. COMPARISON: 06/24/2018 FINDINGS/IMPRESSION: Agree with the preliminary interpretation given by [facility]. In addition, the soft tissue masses associa bright with the right breast have markedly decreased with respect to the prior examination, with largest circumscribed area of altered CT density centrally now measuring about 5 x 2.1 cm. Marked in terval decrease in thoracic adenopathy. Transcribed Date/Time: 08/24/2018 8:38 AM
[2018-08-24] MEDS ORDERED: Famotidine/PF 20 mg/2ml Vial SLOW IVP SCH (09:00)
[2018-08-24] MEDS ORDERED: Morphine 2 MG/ML SYRINGE SLOW IVP PRN (09:37)
[2018-08-24] MEDS: Famotidine 20 MG TAB PO SCH ×2 (09:44→22:28)
[2018-08-24] MEDS: Enoxaparin Sodium 40 MG/0.4 ML SYRINGE SC SCH ×3 (09:44→17:37)
[2018-08-24] MEDS ORDERED: HYDROcodone/Acetaminophen 5/325 mg Tablet PO SCH (10:00)
[2018-08-24] MEDS ORDERED: cefTRIAXone\\ROCEPHIN 1 GM in Sodium Chloride 0.9% 100 ML IVPB SCH (10:00)
[2018-08-24] MEDS ORDERED: ISOVUE-370 76%-LOCM 1 ML ONE (10:39)
--- NOTE | 2018-08-24 11:25 | ULT ---
EXAM: US Gallbladder RUQ PROVIDED CLINICAL HISTORY: Cholecystitis COMPARISON: CT examination earlier same date FINDINGS: The visualized portions of the pancreas appear normal. Liver demonstrates no mass or intrahepatic la iary ductal dilatation. Common duct is upper limits normal measuring 6 mm. Shadowing echogenic foci are noted within the gallbladder lumen compatible with gallstones. Prominent gallbladder wall thicken ing. Sonographic Ramon sign is reported as negative, the patient is medicated. The right kidney demonstrates no evidence for hydronephrosis or mass. IMPRESSION: Cholelithiasis and findings compatible with acute cholecystitis.
--- NOTE | 2018-08-24 11:29 | HP ---
PRIMARY CARE PHYSICIAN: Dr. Juliann Armenta. REASON FOR ADMISSION: Acute gangrenous cholecystitis. HISTORY OF PRESENT ILLNESS: A 62-year-old female who has underlying history of breast cancer, on chemotherapy. The patient is following Oncology Clinic. She has so far 3 cycles of chemotherapy, which she gets every 3 weeks. Her last chemotherapy was on last 08/19/2018, and her next chemotherapy is on 09/09/2018. The patient reports that after Sunday chemotherapy she was experiencing crampy abdominal pain in upper part, especially in epigastric and right upper quadrant. She was trying [id number] pain medication. The patient also called her primary oncologist and who prescribed her to take ibuprofen, Zofran, and Phenergan and [place] p.r.n. basis, which she was taking since Sunday. Yesterday , she started having fever and chills. She was having nausea and she was feeling more sick, and that is why, she decided to come to emergency room. She already called Oncology, but she was already on the way to go to ER because she was feeling more crampy abdominal pain and she was febrile with chills. In the emergency room, she was having temperature of 102.3, she was tachycardic with pulse of 154, and she was tachypneic with respiratory rate of 22. She had a CT angiography, which showed acute gangrenous cholecystitis. There was no dissection. She has underlying right breast cancer. The patient was admitted to telemetry floor. She had chest x- ray yesterday, which did not show any pneumonia. The patient denies any chronic dyspepsia symptoms. The patient was feeling intermittently nausea after food. She was having vague abdominal discomfort. She denies any constipation or diarrhea. She denies any headaches. She denies any focal motor deficit. In the emergency room, the patient was given cefepime, Levaquin, vancomycin, IV fluid, Tylenol; and subsequently, she was admitted to telemetry floor. When I saw at that time, the patient was comfortable. She was having mild crampy abdominal discomfort in upper quadrant. She was still tachycardic and febrile. REVIEW OF SYSTEMS: CONSTITUTIONAL: Negative for weight loss or gain, ability to conduct usual activities. SKIN: Negative for rash, itching. EYES: Negative for double vision, pain. ENT/MOUTH: Negative for nose bleeding, neck stiffness, pain, tenderness. CARDIOVASCULAR: Negative for palpitations, dyspnea on exertion, orthopnea. RESPIRATORY: Negative for shortness of breath, wheezing, cough, hemoptysis, fever or night sweats. GASTROINTESTINAL: Negative for poor appetite, abdominal pain, heartburn, nausea , vomiting, constipation, or diarrhea. GENITOURINARY: Negative for urgency, frequency, dysuria, nocturia. MUSCULOSKELETAL: Negative for pain, swelling. NEUROLOGIC/PSYCHIATRIC: Negative for anxiety, depression. ALLERGY/IMMUNOLOGIC: Negative for skin rash, bleeding tendency. Please see my HPI for pertinent positives and negatives. All other review of systems reviewed and negative except as mentioned in HPI. PAST MEDICAL HISTORY: 1. Hypertension. 2. History of breast cancer, on chemotherapy. PAST SURGICAL HISTORY: x4. PAST PSYCHIATRIC HISTORY: Reviewed and negative. SOCIAL HISTORY: The patient lives at home with family. No history of tobacco, alcohol, or illicit drug abuse. FAMILY HISTORY: Hypertension runs among several family members, but no strong family history of coronary artery disease, stroke, or cancer. ALLERGIES: CODEINE SULFATE. CURRENT HOME MEDICATIONS: 1. Lisinopril 20 mg daily. 2. Ibuprofen 800 mg q.8 h. p.r.n. 3. Zofran 8 mg q.6 h. p.r.n. 4. Phenergan 25 mg q.6 h. p.r.n. 5. [place] tablet q.6 h. p.r.n. EMERGENCY ROOM COURSE: The patient has received IV fluid 3 L, vancomycin, Levaquin, and cefepime as well as Tylenol 1 g. PHYSICAL EXAMINATION: VITAL SIGNS: On arrival; blood pressure 117/87, pulse 154, respiratory rate 22, temperature 102.3, saturation 99% on room air. Weight 62.1 kg. GENERAL: The patient is currently alert, awake, febrile, tachycardic, in no obvious acute distress. HEAD: Normocephalic and atraumatic. EYES: Pupils round and reactive to light. Extraocular muscles intact. ENT: Oropharynx within normal limits. Moist mucous membranes. No oral lesion. No pharyngeal erythema. No exudate. NECK: Supple. No JVD. No thyromegaly. No carotid bruit. LUNGS: Clear to auscultation without any rhonchi or rales. CARDIAC: S1 and S2 regular. Tachycardia. No murmur. No gallop. No rub. ABDOMEN: The patient does have right upper quadrant and epigastric mild discomfort noted on deep palpation. No peritoneal sign. No guarding. No rigidity. No rebound. BACK: Unremarkable. No CVA tenderness. EXTREMITIES: Upper extremities; passive movement of all joints are normal. Lower extremities; no edema, no calf tenderness, good distal pulsation. SKIN: No skin rash. HEMATOLOGICAL SYSTEM: No lymphadenopathy. PSYCHIATRIC: Normal affect. NEUROLOGIC: Nonfocal examination. SIGNIFICANT LABORATORY DATA: EKG showing sinus tachycardia, LVH criteria. Chest x-ray based on my review, no acute cardiopulmonary process. CT dissection protocol is showing no evidence of dissection, but they incidentally found a severely thickened gallbladder with edema and inflammation with pericholecystic fluid collection, consistent with gangrenous cholecystitis. Right breast carcinoma has improved. Atelectasis on the right side. CBC; WBC 2.6, hemoglobin 8.3, and platelet 214. D-dimer 1.07. BMP; sodium 130, potassium 4.1, chloride 103, carbon dioxide 19, BUN 16, creatinine 0.90, glucose 198, and calcium 7.7. Lactic acid 2.1 and then 2.6. LFT; AST 9, ALT 13, alkaline phosphatase 111, and albumin 3.2. Troponin-I negative. Urinalysis normal. Blood culture is obtained. ASSESSMENT AND PLAN: Impression: 1. Sepsis due to cholecystitis. The patient has leukopenia, high-grade fever, tachycardia, tachypnea, and lactic acidosis, all consistent with sepsis. Source of infection is acute cholecystitis. The patient has received appropriate antibiotic therapy and IV fluid. We will closely monitor on telemetry floor. 2. Acute cholecystitis. The patient will be kept n.p.o. General Surgery will be consulted. We will obtain ultrasound of right upper quadrant. The patient will need a cholecystectomy. The patient will be treated with broad-spectrum antibiotic therapy with Rocephin and Levaquin. The patient will be given IV fluid and we will treat symptomatically. Pain control with morphine p.r.n. basis. Pepcid 20 mg IV b.i.d. 3. Leukopenia and anemia, likely due to chemotherapy as well as underlying cancer. We will monitor CBC. 4. Hyponatremia. The patient will be given IV fluid and we will repeat BMP tomorrow. 5. Lactic acidosis, likely due to sepsis. We will repeat lactic acid tomorrow. 6. Breast cancer. The patient is on chemotherapy. At this point, the patient is not due for chemotherapy up until September and we will defer treatment as an outpatient basis. 7. Hypertension. At this point, because of a sepsis, we will hold on blood pressure medication. If blood pressure permits, then we will restart the blood pressure medication. 8. Deep venous thrombosis prophylaxis. Lovenox 40 mg subcutaneous daily. 9. Gastrointestinal prophylaxis. Pepcid 20 mg p.o. or IV b.i.d. CODE STATUS: The patient is full code. The patient does not have any surrogate decision maker. DISPOSITION PLAN: Based on clinical course, we are expecting the patient's stay in hospital more than 2 midnights. Plan of care discussed with the patient and family member at bedside. Job ID: [id number] MTDD
[2018-08-24] MEDS ORDERED: Ketorolac Tromethamine 30 MG/ML VIAL ONE (12:32)
[2018-08-24] MEDS ORDERED: Levofloxacin 500 mg/D5W 100 ml Premix Bag ONE (12:32)
[2018-08-24] MEDS: Sodium Chloride 0.9% 1,000 ML IV SCH ×2 (12:39→17:35)
[2018-08-24] MEDS ORDERED: Bupivacaine/Epinephrine 0.25% 30 ML VIAL ONE (12:44)
[2018-08-24] MEDS ORDERED: Fentanyl 100 MCG/2 ML VIAL ONE ×3 (13:04→15:50)
[2018-08-24] MEDS ORDERED: Ibuprofen 600 MG TAB PO PRN (13:08)
[2018-08-24] MEDS ORDERED: Acetaminophen 500 MG TAB PO PRN (13:08)
--- NOTE | 2018-08-24 13:36 | CON ---
DATE OF CONSULTATION: HISTORY OF PRESENT ILLNESS: Rosalina Villasenor is a 62-year-old female with advanced right breast cancer, undergoing chemotherapy with Dr. Mills for the last 3 months. She last had chemotherapy 6 days ago. The patient has had for the past 2 years intermittent pain, epigastric, right upper quadrant. She presents with unrelenting pain. She presented to the emergency room with epigastric right upper quadrant pain and nausea. Pain did not radiate. She was seen in the emergency room, admitted to the hospitalist telemetry service, had a CT angiogram performed. The CT angiogram revealed changes suspicious of acute cholecystitis, possibly gangrenous with air in the gallbladder wall, pericholecystic inflammatory changes. Her liver function tests were normal. Subsequently, she had an ultrasound of the gallbladder revealing gallstones with negative sonographic Ramon sign and no intrahepatic dilatation of the bile ducts. I was called by [facility] at 5:00 this morning even though I have not been informed of the patient or seen her, relating to me possibility of gangrenous cholecystitis. I was later called by her nurse for consultation. The patient since being in the hospital has been tachycardic, heart rate 120, sinus tachycardia, 98.8 degrees, respiratory rate 18, blood pressure 115/59. As noted above her white count is 2, hemoglobin 8.3. Liver function tests are normal. Renal function is normal. Sodium 130. D-dimer slightly elevated. ALLERGIES: CODEINE. SHE STATES THAT WHEN SHE TAKES TRAMADOL, ALTHOUGH NOT ALLERGIC, SHE DOES NOT LIKE HOW IT MAKES HER FEEL. MEDICATIONS: She has a supply of hydrocodone at home that she takes for pain. SOCIAL HISTORY: Tobacco, none. Alcohol, none. MEDICATIONS: 1. Ibuprofen. 2. Hydrocodone 5/325. 3. Phenergan. 4. Zofran. 5. Lisinopril 20 mg a day at home. PAST SURGICAL HISTORY: MediPort placement, C-sections, tubal ligation. She has inflammatory right breast cancer that she reports having a good response to chemotherapy. She is ER positive, HER-2 positive. PHYSICAL EXAMINATION: VITAL SIGNS: 4 foot 7 inches, 137 pounds, 31 BMI, temperature 98.8 degrees, 120 heart rate, blood pressure 115/59. HEAD, EARS, EYES, NOSE AND THROAT: Unremarkable. LUNGS: Clear to auscultation. CARDIAC: Sinus tachycardia. No murmur. No gallop. ABDOMEN: Soft. Tenderness in right upper quadrant. Epigastrium with guarding. Positive Ramon's. EXTREMITIES: Unremarkable. LABORATORY DATA: As noted. ASSESSMENT/PLAN: 1. Cholecystitis, cholelithiasis. We would recommend laparoscopic video cholecystectomy. Risks of infection, bleeding, visceral biliary injury explained. She consents. She has sonographic negative Ramon sign, although CT angiograms suggest gangrenous cholecystitis. It is possible she could go home on postoperative day depending on how her surgery goes and the appearance of her gallbladder. 2. Anemia. 3. Right breast cancer, undergoing chemotherapy with neutropenia as a result. 4. Never has had a colonoscopy. Job ID: [id number]
[2018-08-24] MEDS ORDERED: Ondansetron PF 4 MG/2 ML Vial ONE ×2 (13:47→15:29)
[2018-08-24] MEDS ORDERED: PROPOFOL 200 MG/20 ML VIAL ONE (13:47)
[2018-08-24] MEDS ORDERED: Lidocaine 1% PF 5 ML VIAL ONE (13:47)
[2018-08-24] MEDS ORDERED: Glycopyrrolate 0.2 MG/ML 5 ML SYRINGE ONE (13:47)
[2018-08-24] MEDS ORDERED: PHENYLEPHRINE-NS 100 MCG/ML 10 ML SYRINGE ONE (13:47)
[2018-08-24] MEDS ORDERED: ePHEDrine 50 MG/ML VIAL ONE (13:47)
[2018-08-24] MEDS ORDERED: Rocuronium Bromide 10 MG/ML (10ML VIAL) ONE (13:47)
[2018-08-24] MEDS ORDERED: Ondansetron ODT 8 MG TAB SL PRN (15:04)
[2018-08-24] MEDS ORDERED: Ondansetron ODT 8 MG TAB PO PRN (15:04)
[2018-08-24] MEDS ORDERED: Ibuprofen 800 MG TAB PO PRN (15:05)
[2018-08-24] MEDS ORDERED: HYDROmorphone 2 MG/ML VIAL SLOW IVP PRN (15:08)
[2018-08-24] MEDS ORDERED: PACU-Morphine 4MG/ML VIAL SLOW IVP PRN (15:08)
[2018-08-24] MEDS ORDERED: Promethazine HCl 25 MG/ML VIAL SLOW IVP PRN (15:08)
[2018-08-24] MEDS ORDERED: Ondansetron HCl/PF 4 MG/2 ML Vial IVP PRN (15:08)
[2018-08-24] MEDS ORDERED: Promethazine HCl 25 MG/ML VIAL IM PRN (15:08)
[2018-08-24] MEDS ORDERED: Promethazine HCl 25 MG/ML VIAL ONE (15:57)
--- NOTE | 2018-08-24 16:30 | OP ---
DATE OF PROCEDURE: 08/24/2018 PREOPERATIVE DIAGNOSES: Undergoing chemotherapy for inflammatory right breast cancer, chronic cholecystitis, acute cholecystitis, cholelithiasis, purulent gallbladder contents. PROCEDURES PERFORMED: Laparoscopic video cholecystectomy, Malika used in the liver bed for hemostasis, 19 gold MIRLANDE drain placed. ANESTHESIA: Local 0.5% Marcaine with epinephrine 30 mL used. DESCRIPTION OF PROCEDURE: The patient was taken to the operating room under general anesthesia. Abdomen was prepared with ChloraPrep and draped in routine fashion. Local anesthetic was infiltrated in the skin and subcutaneous tissue about each port site. Supraumbilical incision made. Pneumoperitoneum to 15 mmHg obtained. A Veress needle replaced with a 5 port. The laparoscope was inserted. Right subxiphoid incision was made and 11 port placed, right subcostal incision was made at midclavicular entrance line. The 5 port was placed. Liver appeared to be normal. Gallbladder was acutely inflamed, thickened wall, omentum and stomach adherent to it. Fundus was grasped at the cephalad. Careful dissection carried out and identifying the infundibulum. In doing so, the gallbladder wall punctured and purulent material evacuated with suction. Multiple stones spilled and these were evacuated with the stone forceps. The gallbladder was carefully dissected free down to the infundibulum. The triangle of Calot with the cystic artery and duct were dissected free. Cystic artery doubly clipped proximally. Node of [place]ot identified and dissected free. Cystic duct identified. There was a defect in the cystic duct from the inflammation and dissection, and this was carefully clipped just on the bile duct side of the cystic duct. Gallbladder dissected free from dense inflammatory scar adhesions in the liver bed using cautery. Gallbladder stones and purulent material removed. Gallbladder removed in a bag. Multiple stones evacuated. Hemostasis gained with the cautery. Malika placed in the liver bed, #19 gold MIRLANDE drain brought and placed in the subhepatic space, secured with 3-0 nylon suture, brought out to the lateral port site. Good hemostasis noted. Pneumoperitoneum irrigant evacuated. All instruments removed. Subxiphoid fascia approximated with 0 Vicryl on UR needle and skin incisions were approximated with 4-0 Monocryl subdermal after they were irrigated. The patient tolerated the procedure well. Job ID: [id number]
[2018-08-24] MEDS: HYDROcodone/Acetaminophen 5/325 mg Tablet PO PRN ×3 (17:15→22:25)
[2018-08-24] MEDS: Ondansetron ODT 4 MG TAB PO SCH ×4 (17:37→22:28)
[2018-08-24] MEDS ORDERED: Morphine 4 MG/ML VIAL SLOW IVP PRN (20:30)
[2018-08-24] MEDS: Ketorolac Tromethamine 30 MG/ML VIAL IVP PRN (20:41)
[2018-08-24] MEDS: Promethazine HCl 25 MG in Sodium Chloride 0.9% 50 ML IVPB PRN (20:44)
[2018-08-25] MEDS: Sodium Chloride 0.9% 1,000 ML IV SCH ×2 (02:02→09:13)
[2018-08-25] MEDS: HYDROcodone/Acetaminophen 5/325 mg Tablet PO PRN ×5 (03:11→22:15)
[2018-08-25] MEDS: Promethazine HCl 25 MG in Sodium Chloride 0.9% 50 ML IVPB PRN ×3 (03:31→22:16)
[2018-08-25 05:35] LABS: #Lymphocytes 0.9 thou/uL (1.20-3.40); #Monocytes 0.3 thou/uL (0.11-0.59); #Neutrophils 1.2 thou/uL (1.40-6.50); %Basophils 0.6 % (0.0-1.0); %Eosinophils 1.2 % (0.0-10.0); %Lymphocytes 36.9 % (21.0-51.0); %Monocytes 13.6 % (0.0-10.0); %Neutrophils 47.7 % (42.0-75.0); Hemoglobin 6.5 g/dL (12.0-16.0); Mean Corpuscular HGB CONC 32.5 g/dL (32.0-36.0); Mean Corpuscular Hemoglobin 27.8 pg (27.0-31.0); Mean Corpuscular Volume 85.5 fL (78.0-98.0); Mean Platelet Volume 7.4 fL (7.4-10.4); Platelet Count 246 thou/uL (130-400); RBC Distribution Width 14.2 % (11.5-14.5); Red Blood Cell (RBC) Count 2.34 mill/uL (4.20-5.40); White Blood Cell (WBC) Count 2.4 thou/uL (4.8-10.8)
[2018-08-25 05:58] LABS: ALT (SGPT) 29 U/L (8-55); AST (SGOT) 33 U/L (5-34); Albumin 2.6 g/dL (3.4-4.8); Alkaline Phosphatase 79 U/L (40-150); Anion Gap 10 mmol/L (10-20); BUN (Urea Nitrogen) 7 mg/dL (9.8-20.1); Bilirubin, Total 0.3 mg/dL (0.2-1.2); Calc. Creatinine Clearance 79 mL/min (70-130); Calcium 8.4 mg/dL (7.8-10.44); Carbon Dioxide 20 mmol/L (23-31); Chloride 109 mmol/L (98-107); Estimated GFR-MDRD 82; Globulin 2.2 g/dL (2.4-3.5); Glucose 109 mg/dL (80-115); Potassium 3.8 mmol/L (3.5-5.1); Protein, Total 4.8 g/dL (6.0-8.3); Sodium 135 mmol/L (136-145)
[2018-08-25] MEDS: Ondansetron ODT 4 MG TAB PO SCH ×4 (06:48→22:13)
[2018-08-25] MEDS: Enoxaparin Sodium 40 MG/0.4 ML SYRINGE SC SCH (08:59)
[2018-08-25] MEDS: Famotidine 20 MG TAB PO SCH ×2 (09:00→20:19)
[2018-08-25] MEDS: Polyethylene Glycol 3350 17 GM Packet PO SCH (09:01)
--- NOTE | 2018-08-25 11:09 | PDOC.PN ---
- Subjective Encounter Start Date: 08/25/18 Encounter Start Time: 07:50 -: old records requested/rev Patient seen and examined. No new complaints. No overnight events - Objective Resuscitation Status - Order Detail: 08/24/18 08:12 Resuscitation Status Routine Resuscitation Status: FULL: Full Resuscitation MAR Reviewed: Yes Vital Signs & Weight: Vital Signs (12 hours) Temp Pulse Resp BP Pulse Ox 08/25/18 07:12 97.6 F 103 H 14 108/70 96 08/25/18 04:04 97.4 F L 64 16 99/61 95 08/25/18 00:00 98.7 F 101 H 16 105/64 97 Weight Admit Weight 137 lb Weight 137 lb 6.4 oz I&O: 08/24/18 08/25/18 08/26/18 06:59 06:59 06:59 Intake Total 450 2350 Output Total 70 Balance 450 2280 Result Diagrams: 08/25/18 05:23 08/25/18 05:23 Phys Exam - Physical Examination Constitutional: NAD HEENT: PERRLA, moist MMs, sclera anicteric Neck: no JVD, supple Respiratory: no wheezing, no rales, no rhonchi Cardiovascular: RRR, no significant murmur, no rub Gastrointestinal: soft, non-tender, no distention, positive bowel sounds drain+ Musculoskeletal: no edema, pulses present Neurological: non-focal, normal sensation, moves all 4 limbs Lymphatic: no nodes Psychiatric: normal affect, A&O x 3 Skin: no rash, normal turgor Dx/Plan (1) Cholelithiasis with acute cholangitis Code(s): K80.20 - CALCULUS OF GALLBLADDER W/O CHOLECYSTITIS W/O OBSTRUCTION; K83.09 - OTHER CHOLANGITIS Status: Acute Comment: s/p lap rosie, MIRLANDE drain in place, surgeon following (2) Leucopenia Code(s): D72.819 - DECREASED WHITE BLOOD CELL COUNT, UNSPECIFIED Status: Acute Comment: due to sepsis and chemotherapy (3) Anemia, normocytic normochromic Code(s): D64.9 - ANEMIA, UNSPECIFIED Status: Chronic Comment: due to chronic disease and chemotherapy (4) Hypertension Code(s): I10 - ESSENTIAL (PRIMARY) HYPERTENSION Status: Chronic (5) Obesity (BMI 30.0-34.9) Code(s): E66.9 - OBESITY, UNSPECIFIED Status: Chronic (6) Sepsis Code(s): A41.9 - SEPSIS, UNSPECIFIED ORGANISM Status: Acute Comment: due to acute cholecystitis (7) Breast cancer Status: Chronic Comment: on chemotherapy - Plan cont current plan of care, plan discussed w/ family, continue antibiotics, incentive spirometry * today her Hb less than 7, will transfuse 1 unit PRBC * start PT * overall stable and improving * medication reviewed as below * symptomatic treatment * continue levaquin * discussed with son and updated information. * reduce IVF Review of Systems - Review of Systems ENT: negative: Ear Pain, Ear Discharge, Nose Pain, Nose Discharge, Nose Congestion, Mouth Pain, Mouth Swelling, Throat Pain, Throat Swelling, Other Respiratory: negative: Cough, Dry, Shortness of Breath, Hemoptysis, SOB with Excertion, Pleuritic Pain, Sputum, Wheezing Cardiovascular: negative: chest pain, palpitations, orthopnea, paroxysmal nocturnal dyspnea, edema, light headedness, other Gastrointestinal: negative: Nausea, Vomiting, Abdominal Pain, Diarrhea, Constipation, Melena, Hematochezia, Other Genitourinary: negative: Dysuria, Frequency, Incontinence, Hematuria, Retention , Other Musculoskeletal: negative: Neck Pain, Shoulder Pain, Arm Pain, Back Pain, Hand Pain, Leg Pain, Foot Pain, Other - Medications/Allergies Allergies/Adverse Reactions: Allergies Allergy/AdvReac Type Severity Reaction Status Date / Time codeine AdvReac Intermediate UPSET Verified 06/07/18 12:50 STOMACH Medications: Current Medications Acetaminophen (Tylenol) 1,000 mg PO Q6H PRN PRN Reason: Moderate to Severe Pain (6-10) Hydrocodone Bitart/Acetaminophen ([place] 5/325) 1 tab PO Q4H PRN PRN Reason: Pain Last Admin: 08/24/18 18:23 Dose: 1 tab Hydrocodone Bitart/Acetaminophen ([place] 5/325) 2 tab PO Q4H PRN PRN Reason: Pain Last Admin: 08/25/18 09:12 Dose: 2 tab Enoxaparin Sodium (Lovenox) 40 mg SC 0900 [facility] Last Admin: 08/25/18 08:59 Dose: 40 mg Famotidine (Pepcid) 20 mg PO BID [facility] Last Admin: 08/25/18 09:00 Dose: 20 mg Guaifenesin (Robitussin Sf) 200 mg PO Q4H PRN PRN Reason: Cough Hydralazine HCl (Apresoline) 10 mg SLOW IVP Q4H PRN PRN Reason: SBP > 180 and HR < 70 Levofloxacin 750 mg/ Device 150 mls @ 100 mls/hr IVPB 0100 [facility] Last Admin: 08/25/18 01:55 Dose: 150 mls Promethazine HCl 25 mg/ Sodium (Chloride) 51 mls @ 204 mls/hr IVPB Q6H PRN PRN Reason: Nausea/Vomiting Last Admin: 08/25/18 03:31 Dose: 51 mls Sodium Chloride (Normal Saline 0.9%) 1,000 mls @ 75 mls/hr IV .[id number] [facility] Last Admin: 08/25/18 09:13 Dose: Not Given Ketorolac Tromethamine (Toradol) 30 mg IVP Q6H PRN PRN Reason: Pain Stop: 08/29/18 12:00 Last Admin: 08/24/18 20:41 Dose: 30 mg Loratadine (Claritin) 10 mg PO DAILYPRN PRN PRN Reason: Sinus Symptoms Morphine Sulfate (Morphine) 4 mg SLOW IVP Q2H PRN PRN Reason: Moderate to Severe Pain (4-10) Ondansetron HCl (Zofran) 4 mg IVP Q6H PRN PRN Reason: Nausea/Vomiting Ondansetron HCl (Zofran Odt) 8 mg SL BID PRN PRN Reason: Nausea/Vomiting Ondansetron HCl (Zofran Odt) 8 mg PO Q4H [facility] Last Admin: 08/25/18 06:48 Dose: Not Given Polyethylene Glycol (Miralax) 17 gm PO DAILY [facility] Last Admin: 08/25/18 09:01 Dose: Not Given Promethazine HCl (Phenergan) 25 mg PO Q6H PRN PRN Reason: Nausea/Vomiting Senna/Docusate Sodium (Senokot S) 2 tab PO BID PRN PRN Reason: Constipation Sodium Chloride ([place] Nasal [place] 0.65%) 0 ml EA NARE QIDPRN PRN PRN Reason: Nasal Congestion Throat Lozenges (Cepastat Lozenges) 1 osmar PO Q2H PRN PRN Reason: Sore Throat Zolpidem Tartrate (Ambien) 5 mg PO HSPRN PRN PRN Reason: Insomnia
--- NOTE | 2018-08-25 11:46 | PRG ---
DATE OF SERVICE: 08/25/2018 SUBJECTIVE: Rosalina Villasenor is doing well this morning. She has been up in a chair and ambulating. She is not orthostatic. She is not dizzy. She presented with a hemoglobin of 8.3. Postoperatively, it was 6.5. There was intraoperative blood loss more than usual due to her severe cholecystitis, but some of this blood loss is accounted for by dehydration and rehydration. Nonetheless, transfusion has been ordered, 1 unit of blood ordered. CBC ordered for in the morning. This morning, her liver function tests are normal. MIRLANDE drainage is serosanguineous, 70 mL postoperatively. She had some vomiting last night. This morning, she is hungry. OBJECTIVE: LUNGS: Clear to auscultation. CARDIAC: Regular rate and rhythm without murmur or gallop. ABDOMEN: Soft. Postoperative tenderness. Drain in place, serosanguineous. VITAL SIGNS: Temperature 97.6 degrees, heart rate 64 to 103, respiratory rate 14 to 16, blood pressure 108/70. ASSESSMENT AND PLAN: Anemia. She has never had a colonoscopy. She is undergoing chemotherapy for breast cancer, last received that a week ago. Agree with 1 unit of blood transfusion since she is asymptomatic, hemoglobin of 6.3 is low. Recheck her CBC in the morning. Advance her diet as tolerated to a regular diet. Hopefully, she will be ready to be discharged home tomorrow. When she does go home, I would keep her on Augmentin 500 b.i.d. for 7 days. Job ID: [id number]
--- NOTE | 2018-08-25 17:56 | CON ---
DATE OF CONSULTATION: 08/25/2018 HISTORY OF PRESENT ILLNESS: Ms. Villasenor is a 62-year-old female with a history of locally advanced breast cancer, on chemotherapy for curative intent, who received her 3rd cycle of chemotherapy 6 days prior to this consult. Just after starting the chemotherapy, she had intense abdominal cramping and she did receive a Neulasta shot on that day as well. The abdominal cramps did continue, although she denied diarrhea. On the day of admission, she had called the office because of having a fever of 102. She was also tachycardic with a heart rate in the 140s and 150s and presented to the emergency room. In the emergency room, a CAT scan of the abdomen and pelvis was done because of the cramping, which showed acute gangrenous cholecystitis and the patient has had a cholecystectomy just prior to this consultation. She is feeling much better, but is quite weak. Her abdominal pain is stable, marginally better. She denies any current nausea or vomiting and she is going to try eating some lunch today. PAST MEDICAL HISTORY: 1. Locally advanced breast cancer, currently undergoing chemotherapy, cycle #3 was 6 days prior to this consult. 2. History of abdominal pain secondary to gallbladder flares. 3. Hypertension. CURRENT MEDICATIONS: 1. Tylenol p.r.n. 2. Salkum p.r.n. 3. Lovenox 40 mg subcutaneous daily. 4. Pepcid 20 mg p.o. b.i.d. 5. Robitussin 200 mg p.o. q.4 h. p.r.n. 6. Hydralazine 10 mg IV q.4 h. p.r.n. 7. Toradol 30 mg IV q.6 h. p.r.n. 8. Levaquin 750 mg IV daily. 9. Claritin 10 mg p.o. daily. 10. Morphine 4 mg IV q.2 h. p.r.n. 11. Zofran 4 mg IV q.6 h. p.r.n. 12. Zofran ODT 8 mg sublingual or p.o. q.4 hours p.r.n. 13. MiraLAX 17 g p.o. daily. 14. Phenergan 25 mg p.o. q.6 h. p.r.n. 15. Phenergan 25 mg IV q.6 h. p.r.n. 16. Senokot two tablets p.o. b.i.d. p.r.n. 17. [place] nasal spray. 18. Cepastat lozenges. 19. Ambien 5 mg p.o. nightly p.r.n. ALLERGIES: CODEINE. SOCIAL HISTORY: She is here with her son who appears quite supportive. She denies tobacco or alcohol use. FAMILY HISTORY: Noncontributory. REVIEW OF SYSTEMS: Otherwise 10-point review of systems is negative. PHYSICAL EXAMINATION: VITAL SIGNS: Temperature 97.6, pulse 103, respirations 14, O2 saturation 96% on room air, and blood pressure 108/70. GENERAL: She is alert, awake, and oriented x3, is quite pale, but is in no acute distress. HEENT: Extraocular muscles are intact. Sclerae are anicteric. NECK: Supple without lymphadenopathy. CARDIOVASCULAR: Regular rhythm with some tachycardia. LUNGS: Clear to auscultation bilaterally. ABDOMEN: Hypoactive bowel sounds. Soft with some tenderness postoperatively. EXTREMITIES: No edema. No clubbing. LABORATORY DATA: White blood cell count 2.4, hemoglobin 6.5, and platelets 246. ASSESSMENT: Ms. Villasenor is a 62-year-old female with; 1. Locally advanced breast cancer, currently undergoing chemotherapy, status post cycle #3. 2. Pancytopenia secondary to chemotherapy and surgery. 3. Fever, resolved. 4. Cholecystitis status post cholecystectomy. PLAN: 1. I would recommend we transfuse her 2 units of packed red blood cells. 2. We can follow her white blood cell count with no further intervention at this time, she did receive Neulasta and her white blood cell count should start to rise. 3. She is already on appropriate antibiotics. 4. I would recommend ambulating her and proceeding with physical therapy per the usual course. 5. We will follow peripherally. Job ID: [id number]
[2018-08-26] MEDS: Sodium Chloride 0.9% 1,000 ML IV SCH ×2 (01:19→09:29)
[2018-08-26] MEDS: Ondansetron ODT 4 MG TAB PO SCH ×7 (01:31→22:39)
[2018-08-26] MEDS: HYDROcodone/Acetaminophen 5/325 mg Tablet PO PRN ×4 (04:18→20:12)
[2018-08-26] MEDS: Promethazine HCl 25 MG in Sodium Chloride 0.9% 50 ML IVPB PRN ×3 (06:16→21:20)
[2018-08-26 06:45] LABS: Hemoglobin 7.8 g/dL (12.0-16.0); Mean Corpuscular HGB CONC 32.3 g/dL (32.0-36.0); Mean Corpuscular Hemoglobin 27.9 pg (27.0-31.0); Mean Corpuscular Volume 86.2 fL (78.0-98.0); Mean Platelet Volume 7.1 fL (7.4-10.4); Platelet Count 320 thou/uL (130-400); RBC Distribution Width 13.7 % (11.5-14.5); Red Blood Cell (RBC) Count 2.78 mill/uL (4.20-5.40); White Blood Cell (WBC) Count 6.7 thou/uL (4.8-10.8)
[2018-08-26 07:01] LABS: Anion Gap 9 mmol/L (10-20); BUN (Urea Nitrogen) 5 mg/dL (9.8-20.1); Calc. Creatinine Clearance 85 mL/min (70-130); Calcium 7.9 mg/dL (7.8-10.44); Carbon Dioxide 21 mmol/L (23-31); Chloride 109 mmol/L (98-107); Estimated GFR-MDRD 89; Glucose 77 mg/dL (80-115); Sodium 136 mmol/L (136-145)
[2018-08-26 07:06] LABS: Potassium 2.9 mmol/L (3.5-5.1)
[2018-08-26] MEDS ORDERED: Potassium Chloride 20 MEQ TAB PO SCH ×2 (07:45→10:45)
[2018-08-26 07:51] LABS: Band 11 % (5-11); Dohle Bodies SLIGHT; Eosinophils 2 % (0-10); Hypochromia SLIGHT = 6-15 cells (100X) (0-5/hpf); Lymphocytes 22 % (21-51); MDiff Complete? YES; Metamyelocyte 1 % (0-0); Monocytes 13 % (0-10); Myelocyte 3 % (0-0); Neutrophil 48 % (42-75); Nucleated RBC 2 % (0); Platelet Morphology Comment Appears Adequate; Polychromasia SLIGHT = 2-3 cells (100X) (0-2/hpf)
[2018-08-26] MEDS ORDERED: Potassium Chloride 20 MEQ/100 ML PREMIX BAG IVPB SCH (08:45)
[2018-08-26] MEDS: Enoxaparin Sodium 40 MG/0.4 ML SYRINGE SC SCH (09:28)
[2018-08-26] MEDS: Famotidine 20 MG TAB PO SCH ×2 (09:28→20:13)
[2018-08-26] MEDS: Polyethylene Glycol 3350 17 GM Packet PO SCH (09:29)
--- NOTE | 2018-08-26 13:17 | PQF ---
CLINICAL DOCUMENTATION IMPROVEMENT CLARIFICATION FORM: ICD-10 Updated PLEASE DO AN ADDENDUM TO THE PROGRESS NOTE WITH ANY DOCUMENTATION UPDATES OR ADDITIONS AND CARRY THROUGH TO DC SUMMARY. THANK YOU. DATE: 08/26/18 ATTN: DR. JARAMILLO Please exercise your independent, professional judgment in responding to the clarification form. Clinical indicators are provided on the bottom of this form for your review Please check appropriate box(s): [ ] Acute blood loss anemia [ ] Post-op anemia related to acute blood loss [ x] Anemia: [ ] Aplastic [ ] Nutritional [ ] Drug induced (specify) ___ [ ] Hemolytic [ ] Hereditary [ ] Acquired [ ] Autoimmune [ ] Non-autoimmune [ ] Enzyme disorder [ ] Chronic Anemia: [ ] Blood loss [ ] Hemolytic [ ] Simple [ ] Due to Vitamin B12 Deficiency [ ] Other [ ] Anemia of Chronic Disease (please specify) [ ] Anemia due to Neoplasm: [ ] Primary [ ] Secondary [ x ] Anemia due to (please choose): [x ] Due to Chemotherapy [ ] Due to Radiotherapy [ ] Due to Immunotherapy [ x ] Other diagnosis _chronic anemia due to breast cancer, acute worsening due to chemotherapy and dilutional effect [ ] Unable to determine In addition, please specify: Present on Admission (POA): [ x ] Yes [ ] No [ ] Unable to determine For continuity of documentation, please document condition throughout progress notes and discharge summary. Thank You. CLINICAL INDICATORS - SIGNS / SYMPTOMS / LABS HGN 08/23: 8.3 HGN 08/25: 6.5 HGN 08/26: 7.8 RISKS: GANGRENOUS CHOLECYSTITIS TREATMENT: LAP CHOLECYSTECTOMY BLOOD TRANSFUSION SERIAL LABS (This form is maintained as a part of the permanent medical record) 2014 [employer]. All Rights Reserved MATHEUS [email or web address] Office: [phone] [facility]
--- NOTE | 2018-08-26 13:32 | PRG ---
DATE OF SERVICE: 08/26/2018 SUBJECTIVE: Ms. Villasenor is doing better today. She is still feeling weak. She complains of some upper abdominal pain, which is consistent with a recent laparoscopic cholecystectomy. OBJECTIVE: VITAL SIGNS: Temperature 98.1 degrees, pulse 97, and blood pressure 129/74. LUNGS: Clear to auscultation. CARDIAC: Regular rate and rhythm. No murmur or gallop. ABDOMEN: Soft. Postoperative tenderness. Laparoscopic wounds look good. LABORATORY DATA: White count 6, hemoglobin 7.8 after 1 unit of blood transfusion yesterday. Liver function tests normal. Potassium is 2.9 this morning. She was given oral and parenteral dose of potassium replacement. 136 sodium. BUN and creatinine are normal at 9 and 5. ASSESSMENT/PLAN: 1. Purulent cholecystitis, cholelithiasis, status post laparoscopic cholecystectomy. Continue antibiotics for 7 days postoperatively. 2. Immunosuppressed from recent chemotherapy for right breast cancer. 3. Hypokalemia, replaced. 4. Poor functional status. Continue reconditioning, mobility. Job ID: [id number]
[2018-08-26 18:01] LABS: Phosphorus 1.3 mg/dL (2.3-4.7)
[2018-08-26 18:07] LABS: Magnesium 1.5 mg/dL (1.6-2.6); Potassium 3.5 mmol/L (3.5-5.1)
[2018-08-26] MEDS ORDERED: Sodium Phosphate 30 MMOL in Sodium Chloride 0.9% 250 ML 250 ML IVPB SCH (20:30)
--- NOTE | 2018-08-26 21:37 | PDOC.PN ---
- Subjective Encounter Start Date: 08/26/18 Encounter Start Time: 08:30 pt subjectively not feeling good enough to go home today, her pain is controlled - Objective Resuscitation Status - Order Detail: 08/24/18 08:12 Resuscitation Status Routine Resuscitation Status: FULL: Full Resuscitation MAR Reviewed: Yes Vital Signs & Weight: Vital Signs (12 hours) Temp Pulse Resp BP Pulse Ox 08/26/18 20:00 98.6 F 90 16 144/81 H 96 08/26/18 15:19 98.3 F 90 16 130/79 95 08/26/18 11:03 98.1 F 97 18 129/74 95 Weight Admit Weight 137 lb Weight 137 lb 6.4 oz I&O: 08/25/18 08/26/18 08/27/18 06:59 06:59 06:59 Intake Total 2350 3090 1122 Output Total 70 50 60 Balance 2280 3040 1062 Result Diagrams: 08/26/18 06:30 08/26/18 17:17 Phys Exam - Physical Examination Constitutional: NAD HEENT: PERRLA, moist MMs, sclera anicteric Neck: no JVD, supple Respiratory: no wheezing, no rales, no rhonchi Cardiovascular: RRR, no significant murmur, no rub Gastrointestinal: soft, non-tender, no distention, positive bowel sounds drain+ Musculoskeletal: no edema, pulses present Neurological: non-focal, normal sensation, moves all 4 limbs Lymphatic: no nodes Psychiatric: normal affect, A&O x 3 Skin: no rash, normal turgor Dx/Plan (1) Cholelithiasis with acute cholangitis Code(s): K80.20 - CALCULUS OF GALLBLADDER W/O CHOLECYSTITIS W/O OBSTRUCTION; K83.09 - OTHER CHOLANGITIS Status: Acute Comment: s/p lap rosie, MIRLANDE drain in place, surgeon following (2) Leucopenia Code(s): D72.819 - DECREASED WHITE BLOOD CELL COUNT, UNSPECIFIED Status: Acute Comment: due to sepsis and chemotherapy (3) Anemia, normocytic normochromic Code(s): D64.9 - ANEMIA, UNSPECIFIED Status: Chronic Comment: due to chronic disease and chemotherapy (4) Hypertension Code(s): I10 - ESSENTIAL (PRIMARY) HYPERTENSION Status: Chronic (5) Obesity (BMI 30.0-34.9) Code(s): E66.9 - OBESITY, UNSPECIFIED Status: Chronic (6) Sepsis Code(s): A41.9 - SEPSIS, UNSPECIFIED ORGANISM Status: Acute Comment: due to acute cholecystitis (7) Breast cancer Status: Chronic Comment: on chemotherapy (8) Hypokalemia Code(s): E87.6 - HYPOKALEMIA Status: Acute (9) Hypophosphatemia Code(s): E83.39 - OTHER DISORDERS OF PHOSPHORUS METABOLISM Status: Acute (10) Hypomagnesemia Code(s): E83.42 - HYPOMAGNESEMIA Status: Acute - Plan cont current plan of care, continue antibiotics, incentive spirometry, out of bed/ambulate * today will replace potassium, phosphate and magnesium * ambulate as tolerated * repeat labs tomorrow * drain as per surgeon * overall doing OK. Review of Systems - Review of Systems Constitutional: weakness, malaise. negative: fever, chills, sweats, other ENT: negative: Ear Pain, Ear Discharge, Nose Pain, Nose Discharge, Nose Congestion, Mouth Pain, Mouth Swelling, Throat Pain, Throat Swelling, Other Respiratory: negative: Cough, Dry, Shortness of Breath, Hemoptysis, SOB with Excertion, Pleuritic Pain, Sputum, Wheezing Cardiovascular: negative: chest pain, palpitations, orthopnea, paroxysmal nocturnal dyspnea, edema, light headedness, other Gastrointestinal: negative: Nausea, Vomiting, Abdominal Pain, Diarrhea, Constipation, Melena, Hematochezia, Other Genitourinary: negative: Dysuria, Frequency, Incontinence, Hematuria, Retention , Other Musculoskeletal: negative: Neck Pain, Shoulder Pain, Arm Pain, Back Pain, Hand Pain, Leg Pain, Foot Pain, Other - Medications/Allergies Allergies/Adverse Reactions: Allergies Allergy/AdvReac Type Severity Reaction Status Date / Time codeine AdvReac Intermediate UPSET Verified 06/07/18 12:50 STOMACH Medications: Current Medications Acetaminophen (Tylenol) 1,000 mg PO Q6H PRN PRN Reason: Moderate to Severe Pain (6-10) Hydrocodone Bitart/Acetaminophen ([place] 5/325) 1 tab PO Q4H PRN PRN Reason: Pain Last Admin: 08/24/18 18:23 Dose: 1 tab Hydrocodone Bitart/Acetaminophen ([place] 5/325) 2 tab PO Q4H PRN PRN Reason: Pain Last Admin: 08/26/18 20:12 Dose: 2 tab Enoxaparin Sodium (Lovenox) 40 mg SC 0900 [facility] Last Admin: 08/26/18 09:28 Dose: 40 mg Famotidine (Pepcid) 20 mg PO BID [facility] Last Admin: 08/26/18 20:13 Dose: 20 mg Guaifenesin (Robitussin Sf) 200 mg PO Q4H PRN PRN Reason: Cough Hydralazine HCl (Apresoline) 10 mg SLOW IVP Q4H PRN PRN Reason: SBP > 180 and HR < 70 Levofloxacin 750 mg/ Device 150 mls @ 100 mls/hr IVPB 0100 [facility] Last Admin: 08/26/18 02:31 Dose: 150 mls Promethazine HCl 25 mg/ Sodium (Chloride) 51 mls @ 204 mls/hr IVPB Q6H PRN PRN Reason: Nausea/Vomiting Last Admin: 08/26/18 21:20 Dose: 51 mls Sodium Chloride (Normal Saline 0.9%) 1,000 mls @ 75 mls/hr IV .[id number] [facility] Last Admin: 08/26/18 09:29 Dose: Not Given Sodium Phosphate 30 mmol/ (Sodium Chloride) 510 mls @ 85 mls/hr IVPB NOW [facility] Stop: 08/26/18 22:30 Ketorolac Tromethamine (Toradol) 30 mg IVP Q6H PRN PRN Reason: Pain Stop: 08/29/18 12:00 Last Admin: 08/24/18 20:41 Dose: 30 mg Loratadine (Claritin) 10 mg PO DAILYPRN PRN PRN Reason: Sinus Symptoms Morphine Sulfate (Morphine) 4 mg SLOW IVP Q2H PRN PRN Reason: Moderate to Severe Pain (4-10) Ondansetron HCl (Zofran) 4 mg IVP Q6H PRN PRN Reason: Nausea/Vomiting Ondansetron HCl (Zofran Odt) 8 mg SL BID PRN PRN Reason: Nausea/Vomiting Ondansetron HCl (Zofran Odt) 8 mg PO Q4H [facility] Last Admin: 08/26/18 19:27 Dose: Not Given Polyethylene Glycol (Miralax) 17 gm PO DAILY [facility] Last Admin: 06/24/19 09:29 Dose: 17 gm Promethazine HCl (Phenergan) 25 mg PO Q6H PRN PRN Reason: Nausea/Vomiting Senna/Docusate Sodium (Senokot S) 2 tab PO BID PRN PRN Reason: Constipation Sodium Chloride ([place] Nasal [place] 0.65%) 0 ml EA NARE QIDPRN PRN PRN Reason: Nasal Congestion Throat Lozenges (Cepastat Lozenges) 1 osmar PO Q2H PRN PRN Reason: Sore Throat Zolpidem Tartrate (Ambien) 5 mg PO HSPRN PRN PRN Reason: Insomnia
[2018-08-26] MEDS ORDERED: Magnesium Sulfate 3 GM in Sodium Chloride 0.9% 100 ML IVPB SCH (21:45)
[2018-08-27] MEDS: HYDROcodone/Acetaminophen 5/325 mg Tablet PO PRN ×2 (02:29→06:06)
[2018-08-27] MEDS: Ketorolac Tromethamine 30 MG/ML VIAL IVP PRN (02:35)
[2018-08-27] MEDS: Sodium Chloride 0.9% 1,000 ML IV SCH (02:44)
[2018-08-27] MEDS: Ondansetron ODT 4 MG TAB PO SCH ×3 (04:37→12:51)
[2018-08-27] MEDS: Promethazine HCl 25 MG in Sodium Chloride 0.9% 50 ML IVPB PRN (06:06)
[2018-08-27 06:32] LABS: Hemoglobin 7.5 g/dL (12.0-16.0); Mean Corpuscular HGB CONC 32.7 g/dL (32.0-36.0); Mean Corpuscular Hemoglobin 28.1 pg (27.0-31.0); Mean Corpuscular Volume 86.1 fL (78.0-98.0); Mean Platelet Volume 6.7 fL (7.4-10.4); Platelet Count 359 thou/uL (130-400); Red Blood Cell (RBC) Count 2.67 mill/uL (4.20-5.40)
[2018-08-27 06:50] LABS: Band 10 % (5-11); Eosinophils 2 % (0-10); Lymphocytes 14 % (21-51); MDiff Complete? YES; Monocytes 5 % (0-10); Myelocyte 3 % (0-0); Neutrophil 66 % (42-75); Nucleated RBC 1 % (0)
[2018-08-27 06:53] LABS: Anion Gap 10 mmol/L (10-20); BUN (Urea Nitrogen) Less than 4 mg/dL (9.8-20.1); Calc. Creatinine Clearance 85 mL/min (70-130); Calcium 7.6 mg/dL (7.8-10.44); Carbon Dioxide 21 mmol/L (23-31); Chloride 110 mmol/L (98-107); Estimated GFR-MDRD 89; Glucose 93 mg/dL (80-115); Potassium 3.2 mmol/L (3.5-5.1); Sodium 138 mmol/L (136-145)
[2018-08-27 07:04] LABS: Magnesium 2.2 mg/dL (1.6-2.6)
[2018-08-27] MEDS ORDERED: Potassium Chloride 20 MEQ TAB PO SCH ×2 (08:00→08:15)
--- NOTE | 2018-08-27 08:49 | PRG ---
DATE OF SERVICE: 08/27/2018 SUBJECTIVE: Rosalina Villasenor is suffering decreased appetite. She complains of a sore mouth interfering with her calorie consumption. She denies any orthostatics symptoms. She has been ambulating and up in the chair. OBJECTIVE: VITAL SIGNS: Temperature 98.6 degrees, heart rate 84, blood pressure 128/73. LUNGS: Clear to auscultation. CARDIAC: Rhythm. No murmur or gallop. ABDOMEN: Soft, nontender, except expected postoperative tenderness. Laparoscopic wounds look good. LABORATORY DATA: White count 14, hemoglobin 7.5. Sodium 138, potassium 3.2, chloride 110, carbon dioxide 21, BUN 10, creatinine less than 4, phosphorus is 4, magnesium 2.2. ASSESSMENT AND PLAN: Status post purulent cholecystitis and cholecystectomy. Continue oral antibiotics. Initiate iron for her anemia. Initiate vitamins. From a surgical standpoint, the patient is ready for discharge home. She can follow up in my office in 2 to 3 weeks. There are no activity restrictions regarding her recent surgery. She can follow up with her oncologist, Dr. Mills next week. The patient can be discharged home on oral antibiotics. Would plan to discontinue her IV antibiotics and start her on oral antibiotics. I would initiate iron. She can shower and bathe. Job ID: [id number]
[2018-08-27] MEDS ORDERED: Amoxicillin/Potassium Clav 500 MG TAB PO SCH (09:00)
[2018-08-27] MEDS ORDERED: Multivit, Therapeutic 1 TAB PO SCH (09:00)
[2018-08-27] MEDS: Famotidine 20 MG TAB PO SCH (09:47)
[2018-08-27] MEDS: Polyethylene Glycol 3350 17 GM Packet PO SCH (09:49)
[2018-08-27] MEDS: Enoxaparin Sodium 40 MG/0.4 ML SYRINGE SC SCH (09:49)
--- NOTE | 2018-08-27 10:32 | DIS ---
DATE OF ADMISSION: 08/24/2018 DATE OF DISCHARGE: 08/27/2018 PRIMARY CARE PHYSICIAN: [facility] Kathya. DISCHARGE DISPOSITION: Home. PRIMARY DISCHARGE DIAGNOSES: 1. Cholelithiasis with acute cholecystitis, status post laparoscopic cholecystectomy. 2. Hypokalemia, hypomagnesemia, hypophosphatemia, and sepsis, resolved. 3. Leukopenia due to chemotherapy. 4. Anemia, normocytic normochromic, acute on chronic, due to chemotherapy as well as dilutional effect. SECONDARY DISCHARGE DIAGNOSES: 1. Breast cancer. 2. Right upper extremity lymphedema. 3. Obesity with BMI of 31. 4. Hypertension. PRIMARY PROCEDURE/OPERATION: Laparoscopic cholecystectomy was performed by Dr. Jasso. RADIOLOGICAL INVESTIGATION: Chest x-ray normal. CT chest angiography was done for elevated D-dimer, which showed acute cholecystitis. Abdominal ultrasound consistent with cholelithiasis with acute cholecystitis. LABORATORY DATA: Significant labs; WBC 14.0, hemoglobin 7.5, and platelets 359. D-dimer 1.07. Sodium 138, potassium 3.2, BUN less than 4, creatinine 0.67, phosphorus 4.0, magnesium 2.2, and calcium 7.6. Liver enzymes normal. Albumin 2.6. Urinalysis normal. Blood culture negative. DISCHARGE MEDICATIONS: 1. [place] 5 one tablet q.6 hourly p.r.n. 2. Ibuprofen 800 mg q.8 hourly p.r.n. 3. Lisinopril 20 mg daily. 4. Zofran 8 mg q.4 hourly p.r.n. 5. Augmentin 500 mg twice daily for 7 days. 6. Ferrous sulfate 325 mg p.o. b.i.d. 7. Pepcid 20 mg p.o. b.i.d. 8. Magnesium oxide 250 mg p.o. daily. 9. Potassium chloride 10 mEq p.o. daily. 10. Phenergan 25 mg q.6 hourly p.r.n. 11. Florastor 250 mg p.o. daily for 7 days. CONTRAINDICATION: None. CODE STATUS: Full code. 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 Jasso was consulted for acute cholecystitis. Dr. Tavera was consulted for her history of underlying breast cancer. TEST RESULTS PENDING ON DISCHARGE: None. ALLERGIES: CODEINE. DISCHARGE PLAN: Posthospital, the patient has an appointment with Dr. Tavera on September 09, 2018, for chemotherapy. The patient will follow up with Dr. Jasso in 2 to 3 weeks. The patient will make an appointment with primary care physician in 1 week. HOSPITAL COURSE: A 62-year-old female with above-mentioned medical problem, who was admitted for fever. The patient was having upper abdominal pain with nausea and she started having fever. She was trying symptomatic treatment at home without improvement, but when she started having fever at that time, she came to emergency room. In the emergency room, she was meeting sepsis criteria. She had elevated D-dimer and that is why CT angiography was done, which showed cholecystitis. Abdominal ultrasound also showed cholelithiasis and acute cholecystitis. The patient was treated with Rocephin and Levaquin while in the hospital. Dr. Jasso did a laparoscopic cholecystectomy. She had a drain placed after surgery, which was removed before discharge. The patient had abnormal electrolytes while in the hospital, which was replaced and corrected. The patient was also given 1 unit of blood transfusion. The patient's anemia was related with her chronic disease plus acute on chronic related with chemotherapy and dilutional effect. I have seen and examined the patient at bedside today. REVIEW OF SYSTEMS: All review of systems reviewed with her and negative. PHYSICAL EXAMINATION: VITAL SIGNS: Currently, temperature 98.6, pulse 84, respiratory rate 16, saturation 94% on room air, blood pressure 128/73, and weight 137 pounds. GENERAL: The patient is currently alert and awake, no obvious acute distress. HEENT: Head, normocephalic and atraumatic. LUNGS: Clear to auscultation without any rhonchi or rales. CARDIAC: S1 and S2 regular. No murmur. No gallop. No rub. ABDOMEN: Soft and benign. EXTREMITIES: No edema. NEUROLOGIC: Nonfocal examination. The patient is medically stable for discharge. Surgeon cleared her for discharge. She will follow up with Oncology, Dr. Jasso, and primary care physician as above. Job ID: [id number]
[2018-08-27 13:23] VITALS: BP 136/73; TEMP 98.2
[2018-08-27] MEDS ORDERED: Ferrous Sulfate 325 MG TAB PO SCH (17:00)
== END 2018-08-27 13:18 | disposition home or self-care (01) | DRG 853 ==
LOC: ERS 21:45 → 2NO 08-24 01:54 → SURG A 08-24 16:35
PROVIDERS: ADMIT Hospitalist; ATTEND Hospitalist
PROC: 0FT44ZZ Resection of Gallbladder, Percutaneous Endoscopic Approach (ICD-10-PCS; principal; 2018-08-24)
DX: A41.9 Sepsis, unspecified organism (principal); D61.810 Antineoplastic chemotherapy induced pancytopenia; E87.1 Hypo-osmolality and hyponatremia; E87.2 Acidosis; K80.12 Calculus of gallbladder with acute and chronic cholecystitis without obstruction; I10 Essential (primary) hypertension; C50.911 Malignant neoplasm of unspecified site of right female breast; T45.1X5A Adverse effect of antineoplastic and immunosuppressive drugs, initial encounter; E86.0 Dehydration; E66.9 Obesity, unspecified; D63.0 Anemia in neoplastic disease; E87.6 Hypokalemia; E83.39 Other disorders of phosphorus metabolism; E83.42 Hypomagnesemia; Z68.31 Body mass index [BMI] 31.0-31.9, adult; Z79.899 Other long term (current) drug therapy
CPT/HCPCS: 36415; 36430; 71045; 71275; 76705; 80048; 80053; 81003; 83605; 83735; 84100; 84484; 85025; 85379; 86850; 86900; 86901; 87040; 87086; 88304; 93005; 96361; 96365; 96367; J0131; J0692; J0696; J1642; J1650; J1885; J1956; J2001; J2270; J2405; J2550; J2704; J3010; J3370; J3475; J3480; J3490; J7050; P9016; Q0162; Q9966; S0028

== ENCOUNTER 2018-09-09 10:07 | Day surgery (SDC) | payer OTHER ==
[~2018-09-09 10:07] MED LIST changes: +DOCETAXEL IVPB SCH; -PEGFILGRASTIM-JMDB 6 MG/0.6 ML SYRINGE SQ SCH; +Palonosetron HCl 0.25 MG in Sodium Chloride 0.9% 50 ML IVPB SCH; +Pertuzumab 420 MG in Sodium Chloride 0.9% 250 ML 250 ML IVPB SCH; +SODIUM CHLORIDE 0.9% IVPB SCH; +TRASTUZUMAB IVPB SCH
[2018-09-09] MEDS ORDERED: Sodium Chloride 0.9% 20 ML ONE (10:24)
[2018-09-09 13:15] VITALS: BP 122/58; TEMP 98.8
[2018-09-09] MEDS ORDERED: Pegfilgrastim Onpro 6 MG/0.6 ML SQ SCH (13:45)
== END 2018-09-09 16:17 | disposition home or self-care (01) ==
LOC: ONC/OP 10:07
PROVIDERS: ATTEND Internal Medicine Hematology & Oncology
DX: Z51.11 Encounter for antineoplastic chemotherapy (principal); C50.211 Malignant neoplasm of upper-inner quadrant of right female breast; Z88.5 Allergy status to narcotic agent
CPT/HCPCS: 36415; 80053; 82248; 83615; 84100; 84550; 86300; 96375; 96377; 96413; 96417; J1100; J1642; J2469; J2505; J7050; J9171; J9306; J9355

== ENCOUNTER 2018-09-26 08:39 | Outpatient (CLI) | payer OTHER ==
--- NOTE | 2018-09-26 10:18 | PET ---
EXAM: PET CT skull to mid thigh COMPARISON: 06/27/2018 HISTORY: Malignant neoplasm of the upper inner quadrant of the right breast. TECHNIQUE: A PET/CT was performed from the skull to the mid thigh after administration of 10.3 millic uries of F-18 FDG. Evaluation was performed on a marsh[employer] workstation. FINDINGS: NECK: No areas of hypermetabolic activity CHEST: The right breast has significantly decreased in size. A small amount of residual edema and ski n thickening is seen in the right breast. There is a mild amount of metabolic activity in the central right breast with a maximum SUV value of 1.9. The previously seen enlarged and hypermetabolic internal mammary lymph node is not visualized on today's examination. No enlarged or hypermetabolic right axillary lymph nodes are seen on this examination. No other suspicious areas of hypermetabolic activity ABDOMEN/PELVIS: No areas of hypermetabolic activity SKELETON: Diffuse nonfocal hypermetabolic activity throughout the skeleton may represent marrow activ ation. No suspicious hypermetabolic lesions are seen in the skeleton. There is a lytic nonhypermetabolic lesion in the right iliac bone which was previously hypermetabolic. CT images used for attenuation correction show a left-sided Mediport with its tip in the superior negra a cava.. The patient is status post cholecystectomy. IMPRESSION: Very good response to therapy with near complete resolution of activity in the right [address]/chest wall and bones. Only minimal metabolic but not hypermetabolic activity is seen in the central right breast.
== END 2018-09-26 08:40 | disposition home or self-care (01) ==
LOC: PET 08:39
PROVIDERS: ATTEND Internal Medicine Hematology & Oncology
DX: C50.211 Malignant neoplasm of upper-inner quadrant of right female breast (principal)
CPT/HCPCS: 78815; A9552

== ENCOUNTER 2018-10-07 10:37 | Day surgery (SDC) | payer OTHER ==
[~2018-10-07 10:37] MED LIST changes: +Dexamethasone 10 MG/ML VIAL SLOW IVP SCH; +PALONOSETRON HCL 0.05 MG/ML 5 ML VIAL IVP SCH; -Palonosetron HCl 0.25 MG in Sodium Chloride 0.9% 50 ML IVPB SCH; +Pegfilgrastim Onpro 6 MG/0.6 ML SQ SCH
[2018-10-07] MEDS ORDERED: Sodium Chloride 0.9% 20 ML ONE (11:33)
[2018-10-07 15:53] VITALS: BP 127/59; TEMP 99
== END 2018-10-07 16:03 | disposition home or self-care (01) ==
LOC: ONC/OP 10:37
PROVIDERS: ATTEND Internal Medicine Hematology & Oncology
DX: Z51.11 Encounter for antineoplastic chemotherapy (principal); C50.211 Malignant neoplasm of upper-inner quadrant of right female breast; Z88.5 Allergy status to narcotic agent
CPT/HCPCS: 96375; 96377; 96413; 96417; J1100; J1642; J2469; J2505; J7050; J9171; J9306; J9355

== ENCOUNTER 2018-11-07 10:01 | Day surgery (SDC) | payer OTHER ==
[~2018-11-07 10:01] MED LIST changes: -Dexamethasone 10 MG/ML VIAL SLOW IVP SCH; -PALONOSETRON HCL 0.05 MG/ML 5 ML VIAL IVP SCH; +Palonosetron HCl 0.25 MG in Sodium Chloride 0.9% 50 ML IVPB SCH
[2018-11-07] MEDS ORDERED: Sodium Chloride 0.9% 20 ML ONE (10:18)
[2018-11-07 10:25] VITALS: BP 145/66; TEMP 98.7
== END 2018-11-07 13:31 | disposition home or self-care (01) ==
LOC: ONC/OP 10:01
PROVIDERS: ATTEND Internal Medicine Hematology & Oncology
DX: Z51.11 Encounter for antineoplastic chemotherapy (principal); C50.211 Malignant neoplasm of upper-inner quadrant of right female breast; Z88.5 Allergy status to narcotic agent
CPT/HCPCS: 36415; 80053; 82248; 83615; 84100; 84550; 86300; 96375; 96377; 96413; 96417; J1100; J1642; J2469; J2505; J7050; J9171; J9306; J9355

== ENCOUNTER 2018-11-21 12:37 | Outpatient (CLI) | payer OTHER | END 2018-11-21 12:38 | disposition home or self-care (01) | LOC: ULT 12:37 | PROVIDERS: ATTEND Internal Medicine Hematology & Oncology | DX: Z51.11 Encounter for antineoplastic chemotherapy (principal); C50.211 Malignant neoplasm of upper-inner quadrant of right female breast; Z79.899 Other long term (current) drug therapy; I08.1 Rheumatic disorders of both mitral and tricuspid valves | CPT/HCPCS: 93306 ==

== ENCOUNTER 2018-11-28 09:24 | Day surgery (SDC) | payer OTHER ==
[~2018-11-28 09:24] MED LIST changes: -DOCETAXEL IVPB SCH; -Palonosetron HCl 0.25 MG in Sodium Chloride 0.9% 50 ML IVPB SCH; -Pegfilgrastim Onpro 6 MG/0.6 ML SQ SCH
[2018-11-28 12:37] VITALS: BP 132/59; TEMP 97.9
== END 2018-11-28 12:39 | disposition home or self-care (01) ==
LOC: ONC/OP 09:24
PROVIDERS: ATTEND Internal Medicine Hematology & Oncology
DX: Z51.12 Encounter for antineoplastic immunotherapy (principal); C50.211 Malignant neoplasm of upper-inner quadrant of right female breast; Z88.5 Allergy status to narcotic agent
CPT/HCPCS: 80053; 82248; 83615; 84100; 84550; 96375; 96413; 96417; J1100; J7050; J9306; J9355

== ENCOUNTER 2018-12-19 10:24 | Day surgery (SDC) | payer OTHER ==
[~2018-12-19 10:24] MED LIST changes: +Dexamethasone 10 MG/ML VIAL SLOW IVP SCH
[2018-12-19] MEDS ORDERED: Sodium Chloride 0.9% 20 ML ONE (10:29)
== END 2018-12-19 12:41 | disposition home or self-care (01) ==
LOC: ONC/OP 10:24
PROVIDERS: ATTEND Internal Medicine Hematology & Oncology
DX: Z51.12 Encounter for antineoplastic immunotherapy (principal); C50.211 Malignant neoplasm of upper-inner quadrant of right female breast; Z88.5 Allergy status to narcotic agent
CPT/HCPCS: 36415; 80053; 82248; 82728; 83540; 83550; 83615; 84100; 84550; 86300; 96375; 96413; 96417; J1100; J1642; J7050; J9306; J9355

== ENCOUNTER 2019-01-01 13:04 | Outpatient (CLI) | payer OTHER ==
--- NOTE | 2019-01-01 15:04 | BD ---
Exam: DEXA Bone Density 01/01/19 INDICATIONS: Postmenopausal osteoporosis screening. Lumbar Spine: BMD (g/cm2) T-SCORE L1 0.652 -3.1 L2 0.721 -2.8 L3 0.747 -3.1 L4 0.829 -2.1 L1-L4 0.742 -2.8 Femoral Neck: 0.615 -2.1 Total Femur: 0.785 -1.3 Impression: Bone mineral density of the lumbar spine indicates osteoporosis. Bone mineral density of the femoral neck indicates osteopenia. POS: OFF
== END 2019-01-01 13:05 | disposition home or self-care (01) ==
LOC: BICMAMMO 13:04
PROVIDERS: ATTEND Internal Medicine Hematology & Oncology
DX: N95.0 Postmenopausal bleeding (principal)
CPT/HCPCS: 77080

== ENCOUNTER 2019-01-09 11:59 | Day surgery (SDC) | payer OTHER ==
[~2019-01-09 11:59] MED LIST changes: -Dexamethasone 10 MG/ML VIAL SLOW IVP SCH
[2019-01-09] MEDS ORDERED: Sodium Chloride 0.9% 20 ML ONE (12:05)
[2019-01-09 12:39] VITALS: BP 128/60; TEMP 99.1
== END 2019-01-09 14:31 | disposition home or self-care (01) ==
LOC: ONC/OP 11:59
PROVIDERS: ATTEND Internal Medicine Hematology & Oncology
DX: Z51.12 Encounter for antineoplastic immunotherapy (principal); C50.211 Malignant neoplasm of upper-inner quadrant of right female breast; D50.0 Iron deficiency anemia secondary to blood loss (chronic); M81.8 Other osteoporosis without current pathological fracture; Z88.5 Allergy status to narcotic agent
CPT/HCPCS: 80053; 82248; 83615; 84100; 84550; 96375; 96413; 96417; J1100; J1642; J7050; J9306; J9355

== ENCOUNTER 2019-01-28 13:18 | Outpatient (CLI) | payer OTHER ==
--- NOTE | 2019-01-28 10:32 | PET ---
Radionucleotide PET with CT attenuation correction HISTORY: Malignant neoplasm upper inner quadrant right breast. Metastatic disease. Restaging. COMPARISON: 09/26/2018. FINDINGS: Physiologic uptake of radiotracer throughout the enteric system and along each urinary trac t. Incomplete rotation of the kidneys again demonstrated. Postoperative changes of the right breast are apparent. Slightly increased but nonhypermetabolic acti vity associated with the postoperative area of the right breast is again demonstrated, with a maximum SUV of 2.0 near the skin surface. No hypermetabolic axillary or internal mammary lymph nodes are apparent. Nonspecific muscular uptake about the neck, shoulders, and chest. No pathologic activity evident. The nondiagnostic CT attenuation correction images again demonstrate the lobular lytic lesion within the right iliac bone. No abnormal uptake. Stable in appearance. Prominent degenerative changes throughout the lumbar spine. Gallbladder is surgically absent. At the right adnexa, an oval smoothly marginated fluid density lesion now measures up to 3.7 cm, prev iously 2.9 cm. The right ovarian cyst has measured up to 3.1 cm on pelvic sonogram from 06/28/2018. IMPRESSION: No evidence of recurrent or metastatic neoplasm. Postoperative changes of the right breas t appear stable. Right ovarian cyst now measures 3.7 cm.
== END 2019-01-28 13:19 | disposition home or self-care (01) ==
LOC: PET 13:18
PROVIDERS: ATTEND Internal Medicine Hematology & Oncology
DX: C79.51 Secondary malignant neoplasm of bone (principal); C50.211 Malignant neoplasm of upper-inner quadrant of right female breast; N83.201 Unspecified ovarian cyst, right side; Z98.890 Other specified postprocedural states
CPT/HCPCS: 78815; A9552

== ENCOUNTER → 2019-01-29 | Day surgery (SDC) | payer OTHER ==
[~2019-01-29] MED LIST changes: +Sodium Chloride 0.9% 20 ML ONE
[2019-01-29 10:33] VITALS: BP 155/69; TEMP 98.4
== END ==
LOC: ONC/OP 10:05
PROVIDERS: ATTEND Internal Medicine Hematology & Oncology
DX: Z51.11 Encounter for antineoplastic chemotherapy (principal); C50.211 Malignant neoplasm of upper-inner quadrant of right female breast; D50.0 Iron deficiency anemia secondary to blood loss (chronic); M81.8 Other osteoporosis without current pathological fracture
CPT/HCPCS: 96375; 96413; 96417; J1100; J1642; J7050; J9306; J9355

== ENCOUNTER 2019-02-20 11:24 | Day surgery (SDC) | payer OTHER ==
[2019-02-20 11:49] VITALS: BP 135/63; TEMP 98.7
== END 2019-02-20 13:34 | disposition home or self-care (01) ==
LOC: ONC/OP 11:24
PROVIDERS: ATTEND Internal Medicine Hematology & Oncology
DX: Z51.11 Encounter for antineoplastic chemotherapy (principal); C50.211 Malignant neoplasm of upper-inner quadrant of right female breast; D50.0 Iron deficiency anemia secondary to blood loss (chronic); M81.8 Other osteoporosis without current pathological fracture; Z88.5 Allergy status to narcotic agent
CPT/HCPCS: 80053; 82248; 83615; 84100; 84550; 96375; 96413; 96417; J1100; J1642; J7050; J9306; J9355

== ENCOUNTER 2019-03-11 12:17 | Outpatient (CLI) | payer OTHER | END 2019-03-11 12:18 | disposition home or self-care (01) | LOC: ULT 12:17 | PROVIDERS: ATTEND Internal Medicine Hematology & Oncology | DX: Z51.11 Encounter for antineoplastic chemotherapy (principal); C50.211 Malignant neoplasm of upper-inner quadrant of right female breast; D50.0 Iron deficiency anemia secondary to blood loss (chronic); M81.8 Other osteoporosis without current pathological fracture; I07.1 Rheumatic tricuspid insufficiency; Z79.899 Other long term (current) drug therapy | CPT/HCPCS: 93306 ==

== ENCOUNTER 2019-03-13 10:19 | Day surgery (SDC) | payer OTHER ==
[~2019-03-13 10:19] MED LIST changes: -Sodium Chloride 0.9% 20 ML ONE
[2019-03-13] MEDS ORDERED: Sodium Chloride 0.9% 20 ML ONE (10:27)
[2019-03-13 13:16] VITALS: BP 127/61; TEMP 98
== END 2019-03-13 13:18 | disposition home or self-care (01) ==
LOC: ONC/OP 10:19
PROVIDERS: ATTEND Internal Medicine Hematology & Oncology
DX: Z51.11 Encounter for antineoplastic chemotherapy (principal); C50.211 Malignant neoplasm of upper-inner quadrant of right female breast; D50.0 Iron deficiency anemia secondary to blood loss (chronic); M81.8 Other osteoporosis without current pathological fracture; Z88.5 Allergy status to narcotic agent
CPT/HCPCS: 36415; 80053; 82248; 83615; 84100; 84550; 86300; 96375; 96413; 96417; J1100; J1642; J7050; J9306; J9355

== ENCOUNTER 2019-04-08 09:03 | Day surgery (SDC) | payer OTHER ==
[2019-04-08] MEDS ORDERED: Sodium Chloride 0.9% 20 ML ONE (09:24)
[2019-04-08 09:25] VITALS: BP 139/66; TEMP 98.8
== END 2019-04-08 13:06 | disposition home or self-care (01) ==
LOC: ONC/OP 09:03
PROVIDERS: ATTEND Internal Medicine Hematology & Oncology
DX: Z51.11 Encounter for antineoplastic chemotherapy (principal); C50.211 Malignant neoplasm of upper-inner quadrant of right female breast; D50.0 Iron deficiency anemia secondary to blood loss (chronic); M81.8 Other osteoporosis without current pathological fracture; Z88.5 Allergy status to narcotic agent
CPT/HCPCS: 96375; 96413; 96417; J1100; J1642; J7050; J9306; J9355

== ENCOUNTER 2019-05-01 09:52 | Day surgery (SDC) | payer OTHER ==
[2019-05-01] MEDS ORDERED: Sodium Chloride 0.9% 20 ML ONE (09:53)
[2019-05-01 10:58] VITALS: BP 128/64; TEMP 99.2
== END 2019-05-01 13:31 | disposition home or self-care (01) ==
LOC: ONC/OP 09:52
PROVIDERS: ATTEND Internal Medicine Hematology & Oncology
DX: Z51.11 Encounter for antineoplastic chemotherapy (principal); C50.211 Malignant neoplasm of upper-inner quadrant of right female breast; D50.0 Iron deficiency anemia secondary to blood loss (chronic); M81.8 Other osteoporosis without current pathological fracture; Z88.5 Allergy status to narcotic agent
CPT/HCPCS: 80053; 82248; 83615; 84100; 84550; 86300; 96375; 96413; 96417; J1100; J1642; J7050; J9306; J9355

== ENCOUNTER 2019-05-09 08:38 | Outpatient (CLI) | payer OTHER ==
--- NOTE | 2019-05-09 16:04 | PET ---
PET CT: 05/09/19 HISTORY: 63-year-old female with malignant neoplasm of upper inner quadrant of the right breast. 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 Last chemotherapy was in 05/01/2019. Exam requested to evaluate response to treatment and determine subsequent therapy. TECHNIQUE: PET scan with CT attenuation correction is performed from the base of the brain through the proximal thighs following the intravenous administration of 11 millicuries of 15-fluorodeoxyglucose in the lef t antecubital fossa. COMPARISON: 01/28/19. No amari hypermetabolism is seen in the neck, chest, axillae, abdomen, pelvis or inguinal regions. No hypermetabolic pulmonary nodules, liver, adrenal, or skeletal lesions are seen. The lytic lesion in the right iliac bone is again noted without abnormal tracer uptake. There is phy siologic activity in the GI and tracts, heart and the visualized portions of the brain. The CT scan used for attenuation correction demonstrates no evidence of pleural effusions, or ascites . Postop changes in the right breast are again seen. There is a 3.5 cm cyst in the right adnexa, simila r to that on the previous study likely of ovarian origin. Evaluation with pelvic US would be helpful. IMPRESSION: No evidence of metastatic disease. POS: BLADIMIR
== END 2019-05-09 08:39 | disposition home or self-care (01) ==
LOC: PET 08:38
PROVIDERS: ATTEND Internal Medicine Hematology & Oncology
DX: C50.211 Malignant neoplasm of upper-inner quadrant of right female breast (principal); C79.51 Secondary malignant neoplasm of bone
CPT/HCPCS: 78815; A9552

== ENCOUNTER 2019-05-13 22:06 | Emergency (ER) | payer OTHER ==
[2019-05-13] MEDS ORDERED: Fluorescein Opthalmic Strip ONE (22:57)
[2019-05-13] MEDS ORDERED: Proparacaine 0.5% Opth 15 ML BOT ONE (22:57)
== END 2019-05-13 23:21 | disposition home or self-care (01) ==
LOC: ERS 22:06
DX: H11.32 Conjunctival hemorrhage, left eye (principal); I10 Essential (primary) hypertension
CPT/HCPCS: 99282

== ENCOUNTER 2019-05-22 10:28 | Day surgery (SDC) | payer OTHER ==
[~2019-05-22 10:28] MED LIST changes: +Sodium Chloride 0.9% 20 ML ONE
[2019-05-22 10:59] VITALS: BP 115/64; TEMP 98.8
== END 2019-05-22 14:28 | disposition home or self-care (01) ==
LOC: ONC/OP 10:28
PROVIDERS: ATTEND Internal Medicine Hematology & Oncology
DX: Z51.12 Encounter for antineoplastic immunotherapy (principal); C50.211 Malignant neoplasm of upper-inner quadrant of right female breast; D50.0 Iron deficiency anemia secondary to blood loss (chronic); M81.8 Other osteoporosis without current pathological fracture; Z88.5 Allergy status to narcotic agent
CPT/HCPCS: 36415; 80053; 82248; 83615; 84100; 84550; 96375; 96413; 96417; J1100; J1642; J7050; J9306; J9355

== ENCOUNTER 2019-06-11 14:38 | Outpatient (CLI) | payer OTHER | END 2019-06-11 14:39 | disposition home or self-care (01) | LOC: ULT 14:38 | PROVIDERS: ATTEND Internal Medicine Hematology & Oncology | DX: Z51.11 Encounter for antineoplastic chemotherapy (principal); C50.211 Malignant neoplasm of upper-inner quadrant of right female breast; I07.1 Rheumatic tricuspid insufficiency; Z79.899 Other long term (current) drug therapy | CPT/HCPCS: 93306 ==

== ENCOUNTER 2019-06-12 10:42 | Day surgery (SDC) | payer OTHER ==
[~2019-06-12 10:42] MED LIST changes: -Sodium Chloride 0.9% 20 ML ONE
[2019-06-12] MEDS ORDERED: Sodium Chloride 0.9% 20 ML ONE (10:45)
[2019-06-12 10:59] VITALS: BP 133/62; TEMP 98
== END 2019-06-12 13:23 | disposition home or self-care (01) ==
LOC: ONC/OP 10:42
PROVIDERS: ATTEND Internal Medicine Hematology & Oncology
DX: Z51.11 Encounter for antineoplastic chemotherapy (principal); C50.211 Malignant neoplasm of upper-inner quadrant of right female breast; D50.0 Iron deficiency anemia secondary to blood loss (chronic); M81.8 Other osteoporosis without current pathological fracture; Z88.5 Allergy status to narcotic agent; Z17.0 Estrogen receptor positive status [ER+]; Z98.890 Other specified postprocedural states; Z87.891 Personal history of nicotine dependence
CPT/HCPCS: 80053; 82248; 83615; 84100; 84550; 86300; 96375; 96413; 96417; J1100; J1642; J7050; J9306; J9355

== ENCOUNTER 2019-07-03 10:42 | Day surgery (SDC) | payer OTHER ==
[2019-07-03] MEDS ORDERED: Sodium Chloride 0.9% 20 ML ONE ×2 (11:39→12:12)
[2019-07-03 12:28] VITALS: BP 111/72; TEMP 98.8
== END 2019-07-03 15:16 | disposition home or self-care (01) ==
LOC: ONC/OP 10:42
PROVIDERS: ATTEND Internal Medicine Hematology & Oncology
DX: Z51.12 Encounter for antineoplastic immunotherapy (principal); C50.211 Malignant neoplasm of upper-inner quadrant of right female breast; D50.0 Iron deficiency anemia secondary to blood loss (chronic); M81.8 Other osteoporosis without current pathological fracture; Z88.5 Allergy status to narcotic agent
CPT/HCPCS: 36415; 80053; 82248; 83615; 84100; 84550; 86300; 96375; 96413; 96417; J1100; J1642; J7050; J9306; J9355

== ENCOUNTER 2019-07-24 09:30 | Day surgery (SDC) | payer OTHER ==
[2019-07-24] MEDS ORDERED: Sodium Chloride 0.9% 20 ML ONE (09:36)
[2019-07-24 09:56] VITALS: BP 124/76; TEMP 98.3
== END 2019-07-24 14:54 | disposition home or self-care (01) ==
LOC: ONC/OP 09:30
PROVIDERS: ATTEND Internal Medicine Hematology & Oncology
DX: Z51.11 Encounter for antineoplastic chemotherapy (principal); C50.211 Malignant neoplasm of upper-inner quadrant of right female breast; D50.0 Iron deficiency anemia secondary to blood loss (chronic); M81.8 Other osteoporosis without current pathological fracture; Z88.5 Allergy status to narcotic agent; Z17.0 Estrogen receptor positive status [ER+]
CPT/HCPCS: 80053; 82248; 83615; 84100; 84550; 86300; 96375; 96413; 96417; J1100; J1642; J7050; J9306; J9355

== ENCOUNTER 2019-08-12 08:46 | Outpatient (CLI) | payer OTHER ==
[2019-08-12] MEDS ORDERED: Iopamidol 370 76% 100 ML VIAL ONE (09:15)
--- NOTE | 2019-08-12 12:43 | CT ---
CT OF THE CHEST AND ABDOMEN AND PELVIS WITH IV CONTRAST: INDICATION: History of inflammatory breast cancer with osseous metastatic disease. COMPARISON: Prior PET CT dated 05/09/2019, CTA of the chest dated 08/24/[address] of the chest, abdomen, and pelvi s dated 06/24/2018. FINDINGS: The multiple regional metastatic lesions involving the right breast appear slightly more pronounced t peterson on the recent PET CT. There are new soft tissue nodules involving the skin of the right breast, particularly on image 9 of series 2 measuring 1.2 cm and on image 23 of series 2 involving the medial right breast measuring 1.5 cm. There is also a metastatic lesion involving the right pectoralis gabe or on image 27 of series 2 measuring 1.3 cm. There is a recurrent small nodule within the central ri ght breast measuring 1.3 cm on image 26 of series 2. Small skin lesion is seen within the medial lef t breast measuring 5.6 mm which was present on the prior PET CT and may reflect a small sebaceous cys t. Slightly more pronounced intramammary lymph node is seen within the upper outer aspect of the rig ht breast on image 19 series 2 measuring 7 mm. There is a mildly prominent right axillary lymph node measuring 6 mm which appears slightly more pronounced in size on the prior examination. Persistent prominent skin thickening is present involving the right breast. No pathologically enlarged lymph nodes are seen within the mediastinum or the supraclavicular regions . No suspicious pulmonary nodule is evident. No definite pathologically enlarged lymph node is evid ent within the mediastinum. No pleural effusion is noted. No focal hepatic lesion is evident. There is a small diverticulum involving the third stage of the d uodenum. Pancreas, adrenal glands, and spleen appear within normal limits. The gallbladder is surgi nabeel absent. 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 There is a small right renal cyst which is stable-appeari ng. No free fluid or enlarged lymph nodes are evident. There is a normal appendix in the right lower quadrant. Serous inclusion cyst involving the right adnexa measuring 3.6 cm in similar-appearing. Small calcification in the region of the left adnexa is similar-appearing. There is a mild amount of retained stool within the colon. The osteolytic lesion involving the right ileum is similar-appearing measuring 2.5 cm. No new osteol ytic or osteoblastic lesion is identified. IMPRESSION: 1. Worsening regional spread of disease within the right breast, right chest wall and right axilla. Stable osteolytic lesion involving the right ilium. No new osteolytic lesion is identified. 2. Small focal nodule involving the medial subcutaneous tissues of the left breast which was present on the prior PET scan without reported fluorodeoxyglucose activity that may reflect a small sebaceou s cyst. POS: BH
--- NOTE | 2019-08-12 13:02 | NM ---
Radionucleotide bone scan HISTORY: Right breast cancer upper inner quadrant. Restaging. FINDINGS: Physiologic uptake of radiotracer throughout the skeleton. Degenerative type uptake of the shoulders, knees, and feet. No focal areas of abnormal radiotracer uptake are evident. Sacrum and pubic symphysis partially obscured by bladder. IMPRESSION : No scintigraphic evidence of osseous metastasis.
== END 2019-08-12 08:47 | disposition home or self-care (01) ==
LOC: CT 08:46
PROVIDERS: ATTEND Internal Medicine Hematology & Oncology
DX: C50.211 Malignant neoplasm of upper-inner quadrant of right female breast (principal); C79.51 Secondary malignant neoplasm of bone; D50.0 Iron deficiency anemia secondary to blood loss (chronic); M81.8 Other osteoporosis without current pathological fracture; N63.20 Unspecified lump in the left breast, unspecified quadrant; C79.89 Secondary malignant neoplasm of other specified sites
CPT/HCPCS: 71260; 74177; 78306; 82565; A9503; Q9967

== ENCOUNTER 2019-08-14 10:18 | Day surgery (SDC) | payer OTHER ==
[2019-08-14] MEDS ORDERED: Sodium Chloride 0.9% 20 ML ONE (11:29)
[2019-08-14 11:47] VITALS: BP 107/67; TEMP 98.5
== END 2019-08-14 12:33 | disposition home or self-care (01) ==
LOC: ONC/OP 10:18
PROVIDERS: ATTEND Internal Medicine Hematology & Oncology
DX: Z51.12 Encounter for antineoplastic immunotherapy (principal); C50.211 Malignant neoplasm of upper-inner quadrant of right female breast; D50.0 Iron deficiency anemia secondary to blood loss (chronic); M81.8 Other osteoporosis without current pathological fracture; Z88.5 Allergy status to narcotic agent
CPT/HCPCS: 80053; 82248; 83615; 84100; 84550; 86300; 96367; 96413; 96417; J1100; J1642; J7050; J9306; J9355

== ENCOUNTER 2019-08-28 08:14 | Outpatient (CLI) | payer OTHER ==
--- NOTE | 2019-08-28 16:30 | PET ---
PET CT: 08/28/19 HISTORY: 63-year-old female with malignant neoplasm of upper inner quadrant of the right female breast. Bone m ets. Exam requested to evaluate for subsequent treatment planning. Patient is currently undergoing ch emotherapy. TECHNIQUE: PET scan with CT attenuation correction is performed from the base of the brain through the proximal thighs following the intravenous administration of 10.6 millicuries of 15-fluorodeoxyglucose in the l eft antecubital fossa. COMPARISON: PET scan dated 05/09/19. CORRELATION: CT chest, abdomen and pelvis and whole body bone scan of 08/12/19. FINDINGS: Multiple new hypermetabolic lesions are seen in the right breast. SUV measure 4.6 cm in the 12 mm upp er medial right breast nodule, 7.6 in the 15 mm nodule in the medial right breast anterior to the upp er sternal body, 9.6 in the 14 mm central right breast nodule and 6.8 in the 15 mm inferomedial right breast nodule, anterior to the inferior sternal body. There is a focus of mildly increased uptake in the right pectoralis major with an SUV of 2.4. A 7 mm hypermetabolic right axillary lymph node is seen with an SUV of 4. No hypermetabolic left axillary, internal mammary, mediastinal, hilar, abdominal or pelvic lymph nod es are seen. No hypermetabolic pulmonary nodules, liver, adrenal, or skeletal lesions are seen. The lytic lesion in the right iliac bone is again noted without abnormal FDG localization. There is physiologic activity in the GI, tracts, heart and the visualized portions of the brain. The CT scan used for attenuation correction demonstrates no evidence of pleural effusions or ascites. The 3.5 cm right adnexal cystic mass is stable. IMPRESSION: Multiple new hypermetabolic lesions in the right breast and a hypermetabolic right axillary lymph nod e since 05/09/19. POS: BLADIMIR
== END 2019-08-28 08:15 | disposition home or self-care (01) ==
LOC: PET 08:14
PROVIDERS: ATTEND Internal Medicine Hematology & Oncology
DX: C50.211 Malignant neoplasm of upper-inner quadrant of right female breast (principal); C79.51 Secondary malignant neoplasm of bone; R59.0 Localized enlarged lymph nodes
CPT/HCPCS: 78815; A9552

== ENCOUNTER 2019-09-04 09:10 | Day surgery (SDC) | payer OTHER ==
[2019-09-04] MEDS ORDERED: Sodium Chloride 0.9% 20 ML ONE (09:13)
[2019-09-04 09:24] VITALS: BP 160/67; TEMP 98.1
== END 2019-09-04 11:24 | disposition home or self-care (01) ==
LOC: ONC/OP 09:10
PROVIDERS: ATTEND Internal Medicine Hematology & Oncology
DX: Z51.12 Encounter for antineoplastic immunotherapy (principal); C50.211 Malignant neoplasm of upper-inner quadrant of right female breast; D50.0 Iron deficiency anemia secondary to blood loss (chronic); M81.8 Other osteoporosis without current pathological fracture; Z88.5 Allergy status to narcotic agent
CPT/HCPCS: 96375; 96413; 96417; J1100; J1642; J7050; J9306; J9355

== ENCOUNTER 2019-09-11 13:14 | Outpatient (CLI) | payer OTHER | END 2019-09-11 13:15 | disposition home or self-care (01) | LOC: ULT 13:14 | PROVIDERS: ATTEND Internal Medicine Hematology & Oncology | DX: Z51.11 Encounter for antineoplastic chemotherapy (principal); C50.211 Malignant neoplasm of upper-inner quadrant of right female breast; Z79.899 Other long term (current) drug therapy | CPT/HCPCS: 93306 ==

== ENCOUNTER 2019-09-25 09:15 | Day surgery (SDC) | payer OTHER ==
[2019-09-25] MEDS ORDERED: Sodium Chloride 0.9% 20 ML ONE (09:22)
[2019-09-25] MEDS ORDERED: Sodium Chloride 0.9% 500 ML IV SCH (09:30)
[2019-09-25] MEDS ORDERED: Ondansetron PF 4 MG/2 ML Vial IVP SCH (09:30)
== END 2019-09-25 12:12 | disposition home or self-care (01) ==
LOC: ONC/OP 09:15
PROVIDERS: ATTEND Internal Medicine Hematology & Oncology
DX: Z51.12 Encounter for antineoplastic immunotherapy (principal); C50.211 Malignant neoplasm of upper-inner quadrant of right female breast; D50.0 Iron deficiency anemia secondary to blood loss (chronic); M81.8 Other osteoporosis without current pathological fracture; Z17.0 Estrogen receptor positive status [ER+]; Z88.5 Allergy status to narcotic agent
CPT/HCPCS: 80053; 82248; 83615; 84100; 84550; 86300; 96361; 96375; 96413; 96417; J1100; J1642; J2405; J7050; J9306; J9355

== ENCOUNTER 2019-10-08 12:25 | Outpatient (CLI) | payer OTHER ==
--- NOTE | 2019-10-08 13:44 | MRI ---
MRI BRAIN WITH AND WITHOUT CONTRAST: DATE: 10/08/2019 HISTORY: 63 year old female with metastatic breast cancer C 50.211 malignant neoplasm of upper inner quadrant of right female breast presents with nausea R 11.0, blurred vision H 53.8 At 1:35 PM 10/08/2019, Dr. Alegria discussed the findings by telephone with Dr. Nicolas Mills. COMPARISON: None TECHNIQUE: Multiplanar, multisequence MRI of the brain performed pre- and post-IV injection of gadolinium based contrast agent. FINDINGS: There is a 3.1 x 2.6 x 2.9 cm solid heterogeneously enhancing tumor mass in the posterior fossa, cent ered slightly to the right of midline, compressing, distorting, and causing vasogenic edema, of the right posterior and midline portions of the medulla; causing moderate degree of vasogenic edema in th e medial aspect of the left cerebellum, and moderate to large volume of edema in the right cerebellar hemisphere. It is located at the lower portion of the fourth ventricle. There is currently no dilation of the aqueduct of Sylvius, third ventricle, or lateral ventricles. The tumor has minimal petechial hemorrhagic components, but no overt hemorrhage. There are no supratentorial metastatic lesions in the cerebrum. There is no restricted diffusion. No supratentorial mass effect or extra-axial fluid collection. Mild to moderate chronic ischemic white matter changes of the cerebrum. IMPRESSION: Solitary approximately 3 cm neoplastic tumor mass, presumably a solitary metastasis, in the posterior fossa, compressing the brainstem (more specifically the medulla), with significant vasogenic edema. Although currently there is no obstructive hydrocephalus, the tumor has the potential to cause obstructive hydrocephalus by fourth ventricular outflow obstruction in the future
[2019-10-08] MEDS ORDERED: Magnevist 469MG/ML 20 ML VIAL ONE (15:33)
== END 2019-10-08 12:26 | disposition home or self-care (01) ==
LOC: MRI 12:25
PROVIDERS: ATTEND Internal Medicine Hematology & Oncology
DX: R51 Headache (principal); C50.211 Malignant neoplasm of upper-inner quadrant of right female breast; R11.0 Nausea; H53.8 Other visual disturbances; G93.89 Other specified disorders of brain
CPT/HCPCS: 70553

== ENCOUNTER 2019-12-10 13:00 | Day surgery (SDC) | payer MEDICARE, MEDICAID ==
[~2019-12-10 13:00] MED LIST changes: -Pertuzumab 420 MG in Sodium Chloride 0.9% 250 ML 250 ML IVPB SCH; +TRASTUZUMAB ANNS IVPB SCH; -TRASTUZUMAB IVPB SCH
[2019-12-10] MEDS ORDERED: Sodium Chloride 0.9% 20 ML ONE (13:01)
[2019-12-10 13:10] VITALS: BP 145/79; TEMP 98.4
== END 2019-12-10 15:11 | disposition home or self-care (01) ==
LOC: ONC/OP 13:00
PROVIDERS: ATTEND Internal Medicine Hematology & Oncology
DX: Z51.12 Encounter for antineoplastic immunotherapy (principal); C50.211 Malignant neoplasm of upper-inner quadrant of right female breast; Z88.5 Allergy status to narcotic agent
CPT/HCPCS: 36415; 80053; 86300; 96413; J1642; J7050; Q5117

== ENCOUNTER 2019-12-31 10:08 | Day surgery (SDC) | payer MEDICARE, MEDICAID ==
[2019-12-31] MEDS ORDERED: Sodium Chloride 0.9% 20 ML ONE (10:23)
[2019-12-31 11:00] VITALS: BP 139/71; TEMP 98.5
== END 2019-12-31 12:45 | disposition home or self-care (01) ==
LOC: ONC/OP 10:08
PROVIDERS: ATTEND Internal Medicine Hematology & Oncology
DX: Z51.12 Encounter for antineoplastic immunotherapy (principal); C50.211 Malignant neoplasm of upper-inner quadrant of right female breast; D50.0 Iron deficiency anemia secondary to blood loss (chronic); M81.8 Other osteoporosis without current pathological fracture; Z88.5 Allergy status to narcotic agent
CPT/HCPCS: 36415; 80053; 86300; 96413; J1642; J7050; Q5117

== ENCOUNTER 2020-01-21 10:18 | Day surgery (SDC) | payer MEDICARE, MEDICAID ==
[2020-01-21 10:54] VITALS: BP 150/73; TEMP 98.2
[2020-01-21] MEDS ORDERED: Sodium Chloride 0.9% 20 ML ONE (12:21)
== END 2020-01-21 12:46 | disposition home or self-care (01) ==
LOC: ONC/OP 10:18
PROVIDERS: ATTEND Internal Medicine Hematology & Oncology
DX: Z51.12 Encounter for antineoplastic immunotherapy (principal); C50.211 Malignant neoplasm of upper-inner quadrant of right female breast; D50.0 Iron deficiency anemia secondary to blood loss (chronic); M81.8 Other osteoporosis without current pathological fracture; Z88.5 Allergy status to narcotic agent
CPT/HCPCS: 36415; 80053; 86300; 96413; J1642; J7050; Q5117

== ENCOUNTER 2020-02-11 09:50 | Day surgery (SDC) | payer MEDICARE, MEDICAID ==
[2020-02-11] MEDS ORDERED: Sodium Chloride 0.9% 20 ML ONE (09:52)
[2020-02-11] MEDS ORDERED: Sodium Chloride 0.9% 500 ML IV SCH (10:00)
[2020-02-11 10:10] VITALS: BP 130/70; TEMP 97.8
== END 2020-02-11 11:01 | disposition home or self-care (01) ==
LOC: ONC/OP 09:50
PROVIDERS: ATTEND Internal Medicine Hematology & Oncology
DX: Z51.12 Encounter for antineoplastic immunotherapy (principal); C50.211 Malignant neoplasm of upper-inner quadrant of right female breast; D50.0 Iron deficiency anemia secondary to blood loss (chronic); M81.8 Other osteoporosis without current pathological fracture; Z17.0 Estrogen receptor positive status [ER+]; Z88.5 Allergy status to narcotic agent
CPT/HCPCS: 36415; 80053; 86300; 96361; 96413; J1642; J7050; Q5117

== ENCOUNTER 2020-02-18 12:48 | Outpatient (CLI) | payer MEDICARE, MEDICAID | END 2020-02-18 12:49 | disposition home or self-care (01) | LOC: ULT 12:48 | PROVIDERS: ATTEND Internal Medicine Hematology & Oncology | DX: Z51.11 Encounter for antineoplastic chemotherapy (principal); C50.211 Malignant neoplasm of upper-inner quadrant of right female breast; I07.1 Rheumatic tricuspid insufficiency; Z79.899 Other long term (current) drug therapy | CPT/HCPCS: 93306 ==

== ENCOUNTER 2020-02-20 12:42 | Day surgery (SDC) | payer MEDICARE, MEDICAID ==
[2020-02-20] MEDS ORDERED: Sodium Chloride 0.9% 1,000 ML IV SCH (13:00)
[2020-02-20 13:22] VITALS: BP 107/59
[2020-02-20] MEDS ORDERED: Sodium Chloride 0.9% 20 ML ONE (14:35)
== END 2020-02-20 14:51 | disposition home or self-care (01) ==
LOC: ONC/OP 12:42
PROVIDERS: ATTEND Internal Medicine Hematology & Oncology
DX: E86.0 Dehydration (principal); C50.211 Malignant neoplasm of upper-inner quadrant of right female breast; D50.0 Iron deficiency anemia secondary to blood loss (chronic); M81.8 Other osteoporosis without current pathological fracture; Z88.5 Allergy status to narcotic agent
CPT/HCPCS: 96360; J1642

== ENCOUNTER 2020-02-25 14:43 | Day surgery (SDC) | payer MEDICARE, MEDICAID ==
[2020-02-25] MEDS ORDERED: Sodium Chloride 0.9% 20 ML ONE (15:21)
[2020-02-25 15:28] VITALS: BP 98/57; TEMP 98.6
[2020-02-25] MEDS ORDERED: Sodium Chloride 0.9% 1,000 ML IV SCH (15:30)
== END 2020-02-25 17:12 | disposition home or self-care (01) ==
LOC: ONC/OP 14:43
PROVIDERS: ATTEND Internal Medicine Hematology & Oncology
DX: E86.0 Dehydration (principal); C50.211 Malignant neoplasm of upper-inner quadrant of right female breast; D50.0 Iron deficiency anemia secondary to blood loss (chronic); M81.8 Other osteoporosis without current pathological fracture; Z88.5 Allergy status to narcotic agent
CPT/HCPCS: 96360; J1642

== ENCOUNTER 2020-03-03 10:24 | Day surgery (SDC) | payer MEDICARE, MEDICAID ==
[~2020-03-03 10:24] MED LIST changes: +Sodium Chloride 0.9% 20 ML ONE
[2020-03-03 12:42] LABS: Anion Gap 12 mmol/L (10-20); BUN (Urea Nitrogen) 10 mg/dL (9.8-20.1); Calc. Creatinine Clearance 0 mL/min (70-130); Calcium 8.4 mg/dL (7.8-10.44); Carbon Dioxide 24 mmol/L (23-31); Chloride 111 mmol/L (98-107); Glucose 92 mg/dL (80-115); Potassium 3.7 mmol/L (3.5-5.1); Sodium 143 mmol/L (136-145)
[2020-03-03 15:27] VITALS: BP 137/64; TEMP 98
== END 2020-03-03 15:29 | disposition home or self-care (01) ==
LOC: ONC/OP 10:24
PROVIDERS: ATTEND Internal Medicine Hematology & Oncology
DX: Z51.12 Encounter for antineoplastic immunotherapy (principal); C50.211 Malignant neoplasm of upper-inner quadrant of right female breast; D50.0 Iron deficiency anemia secondary to blood loss (chronic); M81.8 Other osteoporosis without current pathological fracture; Z88.5 Allergy status to narcotic agent
CPT/HCPCS: 80053; 86300; 96413; 99211; G0463; J1642; J7050; Q5117

== ENCOUNTER 2020-03-09 07:38 | Outpatient (CLI) | payer MEDICARE, MEDICAID ==
--- NOTE | 2020-03-09 09:35 | PET ---
Radionucleotide PET scan with CT attenuation correction HISTORY: Malignant neoplasm upper inner quadrant right breast with metastatic disease. Restaging. COMPARISON: 11/14/2019. FINDINGS: No residual hypermetabolic activity is apparent in the right breast masses, axillary adenop athy, or other areas of abnormality on prior study from 11/14/2019. The largest of the hypermetabolic lesions on the prior exam have decreased in size significantly. The smaller have completely resolved. No new areas of abnormal hypermetabolic activity are evident. Physiologic uptake is evident within the enteric system and along each urinary tract. Muscular uptake about the right arm and hand. IMPRESSION : Complete resolution of hypermetabolic metastatic disease from the prior study. No residual disease or new abnormalities.
--- NOTE | 2020-03-09 12:16 | MRI ---
MRI BRAIN WITH AND WITHOUT CONTRAST: INDICATION: Brain metastasis. Followup resection. COMPARISON: Comparison is made to MRI of brain 11/25/2019. FINDINGS: Postoperative changes are seen in the posterior fossa as previously described. The fluid signal pat ection seen in the postoperative bed noted previously is again seen and has a similar size and appear ance. The nodular enhancement described previously along the anterior superior margin of the postoperative bed is no longer seen. The vasogenic edema seen on FLAIR sequence described near the operative bed w ith right lateral medullary enhancement is no longer present. No vasogenic edema is seen today on FL AIR sequence. The chronic ischemic white matter changes in the periventricular region are stable. No evidence of restricted diffusion. No abnormal enhancement otherwise seen. IMPRESSION: Postoperative changes are again noted in the posterior fossa with a fluid signal collection in the op erative bed posteriorly, similar in appearance to the prior exam. No abnormal enhancement seen today . No evidence of residual neoplasm seen on today's study. POS: AGW
[2020-03-09] MEDS ORDERED: Magnevist 469MG/ML 20 ML VIAL ONE (12:57)
== END 2020-03-09 07:39 | disposition home or self-care (01) ==
LOC: BICMRI 07:38 → MRI 07:39
PROVIDERS: ATTEND Radiology Radiation Oncology
DX: C50.919 Malignant neoplasm of unspecified site of unspecified female breast (principal); C79.31 Secondary malignant neoplasm of brain; R90.89 Other abnormal findings on diagnostic imaging of central nervous system; Z98.890 Other specified postprocedural states
CPT/HCPCS: 70553; 78815; A9552

== ENCOUNTER 2020-03-24 09:36 | Day surgery (SDC) | payer MEDICARE, MEDICAID ==
[~2020-03-24 09:36] MED LIST changes: -Sodium Chloride 0.9% 20 ML ONE
[2020-03-24] MEDS ORDERED: Sodium Chloride 0.9% 20 ML ONE (09:42)
[2020-03-24 10:12] VITALS: BP 132/62; TEMP 97.7
[2020-03-24] MEDS ORDERED: Sodium Chloride 0.9% 1,000 ML IV SCH (10:15)
== END 2020-03-24 11:47 | disposition home or self-care (01) ==
LOC: ONC/OP 09:36
PROVIDERS: ATTEND Internal Medicine Hematology & Oncology
DX: Z51.12 Encounter for antineoplastic immunotherapy (principal); C50.211 Malignant neoplasm of upper-inner quadrant of right female breast; D50.0 Iron deficiency anemia secondary to blood loss (chronic); M81.8 Other osteoporosis without current pathological fracture; Z88.5 Allergy status to narcotic agent
CPT/HCPCS: 36415; 80053; 86300; 96413; J1642; J7050; Q5117

== ENCOUNTER 2020-04-14 09:46 | Day surgery (SDC) | payer MEDICARE, MEDICAID ==
[2020-04-14 10:54] VITALS: BP 132/62; TEMP 98
== END 2020-04-14 11:12 | disposition home or self-care (01) ==
LOC: ONC/OP 09:46
PROVIDERS: ATTEND Internal Medicine Hematology & Oncology
DX: Z51.12 Encounter for antineoplastic immunotherapy (principal); C50.211 Malignant neoplasm of upper-inner quadrant of right female breast; D50.0 Iron deficiency anemia secondary to blood loss (chronic); M81.8 Other osteoporosis without current pathological fracture
CPT/HCPCS: 36415; 80053; 86300; 96413; J7050; Q5117

== ENCOUNTER 2020-05-03 12:47 | Outpatient (CLI) | payer MEDICARE, MEDICAID | END 2020-05-03 12:48 | disposition home or self-care (01) | LOC: ULT 12:47 | PROVIDERS: ATTEND Internal Medicine Hematology & Oncology | DX: Z51.11 Encounter for antineoplastic chemotherapy (principal); C50.211 Malignant neoplasm of upper-inner quadrant of right female breast; Z79.899 Other long term (current) drug therapy; I07.1 Rheumatic tricuspid insufficiency | CPT/HCPCS: 93306 ==

== ENCOUNTER 2020-05-05 09:39 | Day surgery (SDC) | payer MEDICARE, MEDICAID ==
[2020-05-05 10:50] VITALS: BP 148/67; TEMP 98.1
[2020-05-05] MEDS ORDERED: Sodium Chloride 0.9% 20 ML ONE (11:34)
== END 2020-05-05 11:47 | disposition home or self-care (01) ==
LOC: ONC/OP 09:39
PROVIDERS: ATTEND Internal Medicine Hematology & Oncology
DX: Z51.12 Encounter for antineoplastic immunotherapy (principal); C50.211 Malignant neoplasm of upper-inner quadrant of right female breast; D50.0 Iron deficiency anemia secondary to blood loss (chronic); M81.8 Other osteoporosis without current pathological fracture; Z88.5 Allergy status to narcotic agent
CPT/HCPCS: 80053; 86300; 96413; J1642; J7050; Q5117

== ENCOUNTER 2020-05-26 09:59 | Day surgery (SDC) | payer MEDICARE, MEDICAID ==
[2020-05-26 10:07] VITALS: BP 143/72; TEMP 98
[2020-05-26] MEDS ORDERED: Sodium Chloride 0.9% 20 ML ONE ×2 (10:14→10:18)
== END 2020-05-26 11:44 | disposition home or self-care (01) ==
LOC: ONC/OP 09:59
PROVIDERS: ATTEND Internal Medicine Hematology & Oncology
DX: Z51.12 Encounter for antineoplastic immunotherapy (principal); C50.211 Malignant neoplasm of upper-inner quadrant of right female breast; D50.0 Iron deficiency anemia secondary to blood loss (chronic); M81.8 Other osteoporosis without current pathological fracture; Z88.5 Allergy status to narcotic agent
CPT/HCPCS: 36415; 80053; 86300; 96413; J1642; J7050; Q5117

== ENCOUNTER 2020-06-10 08:16 | Outpatient (CLI) | payer MEDICARE, MEDICAID | END 2020-06-10 08:17 | disposition home or self-care (01) | LOC: PET 08:16 | PROVIDERS: ATTEND Internal Medicine Hematology & Oncology | DX: C50.211 Malignant neoplasm of upper-inner quadrant of right female breast (principal); C79.31 Secondary malignant neoplasm of brain; Z96.89 Presence of other specified functional implants | CPT/HCPCS: 70553; 78815; A9552 ==

== ENCOUNTER 2020-06-18 11:16 | Day surgery (SDC) | payer MEDICARE, MEDICAID ==
[2020-06-18] MEDS ORDERED: Sodium Chloride 0.9% 20 ML ONE (12:14)
== END 2020-06-18 14:39 | disposition home or self-care (01) ==
LOC: ONC/OP 11:16
PROVIDERS: ATTEND Internal Medicine Hematology & Oncology
DX: Z51.12 Encounter for antineoplastic immunotherapy (principal); C50.211 Malignant neoplasm of upper-inner quadrant of right female breast; D50.0 Iron deficiency anemia secondary to blood loss (chronic); M81.8 Other osteoporosis without current pathological fracture; Z88.5 Allergy status to narcotic agent
CPT/HCPCS: 36415; 80053; 86300; 96413; J1642; J7050; Q5117

== ENCOUNTER 2020-07-12 11:01 | Day surgery (SDC) | payer MEDICARE, MEDICAID ==
[2020-07-12] MEDS ORDERED: Sodium Chloride 0.9% 20 ML ONE (11:29)
[2020-07-12 12:18] VITALS: BP 105/56; TEMP 98
== END 2020-07-12 12:45 | disposition home or self-care (01) ==
LOC: ONC/OP 11:01
PROVIDERS: ATTEND Internal Medicine Hematology & Oncology
DX: Z51.12 Encounter for antineoplastic immunotherapy (principal); C50.211 Malignant neoplasm of upper-inner quadrant of right female breast; D50.0 Iron deficiency anemia secondary to blood loss (chronic); M81.8 Other osteoporosis without current pathological fracture; Z88.5 Allergy status to narcotic agent
CPT/HCPCS: 96413; J1642; J7050; Q5117

== ENCOUNTER 2020-08-02 20:43 | Emergency (ER) | payer MEDICARE, MEDICAID ==
[2020-08-02] MEDS ORDERED: Ketorolac Tromethamine 30 MG/ML VIAL ONE (21:13)
== END 2020-08-02 21:41 | disposition home or self-care (01) ==
LOC: ERS 20:43
DX: G62.9 Polyneuropathy, unspecified (principal); Z79.899 Other long term (current) drug therapy; I10 Essential (primary) hypertension; Z85.3 Personal history of malignant neoplasm of breast
CPT/HCPCS: 96372; 99283; J1885

== ENCOUNTER 2020-08-04 10:49 | Day surgery (SDC) | payer MEDICARE, MEDICAID ==
[2020-08-04] MEDS ORDERED: Sodium Chloride 0.9% 20 ML ONE (10:54)
[2020-08-04] MEDS ORDERED: Sodium Chloride 0.9% 1,000 ML IV SCH (11:15)
[2020-08-04 12:01] VITALS: BP 133/61; TEMP 98
== END 2020-08-04 13:15 | disposition home or self-care (01) ==
LOC: ONC/OP 10:49
PROVIDERS: ATTEND Internal Medicine Hematology & Oncology
DX: Z51.11 Encounter for antineoplastic chemotherapy (principal); C50.211 Malignant neoplasm of upper-inner quadrant of right female breast; D50.0 Iron deficiency anemia secondary to blood loss (chronic); M81.8 Other osteoporosis without current pathological fracture; Z88.5 Allergy status to narcotic agent
CPT/HCPCS: 96361; 96413; J1642; J7050; Q5117

== ENCOUNTER 2020-08-09 12:01 | Outpatient (CLI) | payer MEDICARE, MEDICAID | END 2020-08-09 12:02 | disposition home or self-care (01) | LOC: ULT 12:01 | PROVIDERS: ATTEND Internal Medicine Hematology & Oncology | DX: Z51.11 Encounter for antineoplastic chemotherapy (principal); C50.919 Malignant neoplasm of unspecified site of unspecified female breast; I07.1 Rheumatic tricuspid insufficiency; I37.1 Nonrheumatic pulmonary valve insufficiency; Z79.899 Other long term (current) drug therapy | CPT/HCPCS: 93306 ==

== ENCOUNTER 2020-08-25 10:18 | Day surgery (SDC) | payer MEDICARE, MEDICAID ==
[~2020-08-25 10:18] MED LIST changes: +Sodium Chloride 0.9% 20 ML ONE
[2020-08-25 10:31] VITALS: BP 127/60; TEMP 98.2
== END 2020-08-25 12:10 | disposition home or self-care (01) ==
LOC: ONC/OP 10:18
PROVIDERS: ATTEND Internal Medicine Hematology & Oncology
DX: Z51.12 Encounter for antineoplastic immunotherapy (principal); C50.211 Malignant neoplasm of upper-inner quadrant of right female breast; D50.0 Iron deficiency anemia secondary to blood loss (chronic); M81.8 Other osteoporosis without current pathological fracture; Z88.5 Allergy status to narcotic agent
CPT/HCPCS: 96413; J1642; J7050; Q5117

== ENCOUNTER 2020-09-09 09:15 | Outpatient (CLI) | payer MEDICARE, MEDICAID | END 2020-09-09 09:16 | disposition home or self-care (01) | LOC: PET 09:15 | PROVIDERS: ATTEND Internal Medicine Hematology & Oncology | DX: C50.211 Malignant neoplasm of upper-inner quadrant of right female breast (principal); C79.31 Secondary malignant neoplasm of brain; Z98.890 Other specified postprocedural states | CPT/HCPCS: 70553; 78815; A9552 ==

== ENCOUNTER 2020-10-06 09:13 | Day surgery (SDC) | payer MEDICARE, MEDICAID ==
[~2020-10-06 09:13] MED LIST changes: -Sodium Chloride 0.9% 20 ML ONE
[2020-10-06 10:01] VITALS: BP 140/63; TEMP 97.8
== END 2020-10-06 10:26 | disposition home or self-care (01) ==
LOC: EEVIPCON 09:13 → ONC/OP 09:13
PROVIDERS: ATTEND Internal Medicine Hematology & Oncology
DX: Z51.12 Encounter for antineoplastic immunotherapy (principal); C50.211 Malignant neoplasm of upper-inner quadrant of right female breast; D50.0 Iron deficiency anemia secondary to blood loss (chronic); M81.8 Other osteoporosis without current pathological fracture; Z88.5 Allergy status to narcotic agent
CPT/HCPCS: 96413; J7050; Q5117

== ENCOUNTER 2020-10-27 09:36 | Day surgery (SDC) | payer MEDICARE, MEDICAID ==
[2020-10-27 10:37] VITALS: BP 148/75
== END 2020-10-27 10:59 | disposition home or self-care (01) ==
LOC: ONC/OP 09:36
PROVIDERS: ATTEND Internal Medicine Hematology & Oncology
DX: Z51.12 Encounter for antineoplastic immunotherapy (principal); C50.211 Malignant neoplasm of upper-inner quadrant of right female breast; D50.8 Other iron deficiency anemias; M81.8 Other osteoporosis without current pathological fracture; R06.00 Dyspnea, unspecified; Z88.5 Allergy status to narcotic agent
CPT/HCPCS: 36415; 71046; 80053; 86300; 99212; G0463

== ENCOUNTER 2020-11-24 09:27 | Day surgery (SDC) | payer MEDICARE, MEDICAID ==
[2020-11-24] MEDS ORDERED: Sodium Chloride 0.9% 20 ML ONE (09:32)
[2020-11-24 10:28] VITALS: BP 143/67
== END 2020-11-24 11:50 | disposition home or self-care (01) ==
LOC: ONC/OP 09:27
PROVIDERS: ATTEND Internal Medicine Hematology & Oncology
DX: Z51.12 Encounter for antineoplastic immunotherapy (principal); C50.211 Malignant neoplasm of upper-inner quadrant of right female breast; D50.0 Iron deficiency anemia secondary to blood loss (chronic); M81.8 Other osteoporosis without current pathological fracture; Z88.5 Allergy status to narcotic agent
CPT/HCPCS: 36415; 80053; 86300; 96413; J1642; J7050; Q5117

== ENCOUNTER 2020-12-15 09:55 | Day surgery (SDC) | payer MEDICARE, MEDICAID ==
[2020-12-15] MEDS ORDERED: Sodium Chloride 0.9% 20 ML ONE (10:01)
[2020-12-15 10:14] VITALS: BP 154/72
== END 2020-12-15 11:14 | disposition home or self-care (01) ==
LOC: ONC/OP 09:55
PROVIDERS: ATTEND Internal Medicine Hematology & Oncology
DX: Z51.12 Encounter for antineoplastic immunotherapy (principal); C50.211 Malignant neoplasm of upper-inner quadrant of right female breast; D50.0 Iron deficiency anemia secondary to blood loss (chronic); M81.8 Other osteoporosis without current pathological fracture; Z88.5 Allergy status to narcotic agent
CPT/HCPCS: 36415; 80053; 86300; 96413; J1642; J7050; Q5117

== ENCOUNTER 2020-12-28 11:58 | Outpatient (CLI) | payer MEDICARE, MEDICAID ==
[~2020-12-28 11:58] MED LIST changes: +Magnevist 469MG/ML 20 ML VIAL ONE; -SODIUM CHLORIDE 0.9% IVPB SCH; -TRASTUZUMAB ANNS IVPB SCH
== END 2020-12-28 11:59 | disposition home or self-care (01) ==
LOC: PET 11:58
PROVIDERS: ATTEND Internal Medicine Hematology & Oncology
DX: C50.211 Malignant neoplasm of upper-inner quadrant of right female breast (principal); C79.31 Secondary malignant neoplasm of brain; D50.0 Iron deficiency anemia secondary to blood loss (chronic); M81.8 Other osteoporosis without current pathological fracture; Z98.890 Other specified postprocedural states
CPT/HCPCS: 70553; 78815; A9552; A9579

== ENCOUNTER 2020-12-30 12:57 | Outpatient (CLI) | payer MEDICARE, MEDICAID | END 2020-12-30 12:58 | disposition home or self-care (01) | LOC: ULT 12:57 | PROVIDERS: ATTEND Internal Medicine Hematology & Oncology | DX: Z51.11 Encounter for antineoplastic chemotherapy (principal); C50.211 Malignant neoplasm of upper-inner quadrant of right female breast; I08.3 Combined rheumatic disorders of mitral, aortic and tricuspid valves; Z79.899 Other long term (current) drug therapy | CPT/HCPCS: 93306 ==

== ENCOUNTER 2021-01-05 10:03 | Day surgery (SDC) | payer MEDICARE, MEDICAID ==
[~2021-01-05 10:03] MED LIST changes: -Magnevist 469MG/ML 20 ML VIAL ONE; +SODIUM CHLORIDE 0.9% IVPB SCH; +TRASTUZUMAB ANNS IVPB SCH
[2021-01-05 10:38] VITALS: BP 130/63; TEMP 98
[2021-01-05] MEDS ORDERED: Sodium Chloride 0.9% 20 ML ONE (10:42)
== END 2021-01-05 11:16 | disposition home or self-care (01) ==
LOC: ONC/OP 10:03
PROVIDERS: ATTEND Internal Medicine Hematology & Oncology
DX: Z51.12 Encounter for antineoplastic immunotherapy (principal); C50.211 Malignant neoplasm of upper-inner quadrant of right female breast; D50.0 Iron deficiency anemia secondary to blood loss (chronic); M81.8 Other osteoporosis without current pathological fracture; Z88.5 Allergy status to narcotic agent
CPT/HCPCS: 96413; J1642; J7050; Q5117

== ENCOUNTER 2021-02-02 10:47 | Day surgery (SDC) | payer MEDICARE, OTHER ==
[2021-02-02] MEDS ORDERED: Sodium Chloride 0.9% 10 ML ONE ×2 (11:02→11:04)
[2021-02-02 11:55] VITALS: BP 133/67; TEMP 98.1
== END 2021-02-02 11:59 | disposition home or self-care (01) ==
LOC: ONC/OP 10:47
PROVIDERS: ATTEND Internal Medicine Hematology & Oncology
DX: Z51.12 Encounter for antineoplastic immunotherapy (principal); C50.211 Malignant neoplasm of upper-inner quadrant of right female breast; D50.0 Iron deficiency anemia secondary to blood loss (chronic); M81.8 Other osteoporosis without current pathological fracture; Z88.5 Allergy status to narcotic agent
CPT/HCPCS: 96413; J1642; J7050; Q5117

== ENCOUNTER 2021-02-23 09:15 | Day surgery (SDC) | payer MEDICARE, OTHER ==
[2021-02-23] MEDS ORDERED: Sodium Chloride 0.9% 10 ML ONE ×2 (09:29)
[2021-02-23 10:09] VITALS: BP 114/66; TEMP 98.3
== END 2021-02-23 11:28 | disposition home or self-care (01) ==
LOC: ONC/OP 09:15
PROVIDERS: ATTEND Internal Medicine Hematology & Oncology
DX: Z51.12 Encounter for antineoplastic immunotherapy (principal); C50.211 Malignant neoplasm of upper-inner quadrant of right female breast; D50.0 Iron deficiency anemia secondary to blood loss (chronic); M81.8 Other osteoporosis without current pathological fracture; Z88.5 Allergy status to narcotic agent
CPT/HCPCS: 96413; J1642; J7050; Q5117

== ENCOUNTER 2021-03-16 09:57 | Day surgery (SDC) | payer MEDICARE, MEDICAID ==
[2021-03-16 10:27] VITALS: BP 148/70; TEMP 97.8
== END 2021-03-16 11:42 | disposition home or self-care (01) ==
LOC: ONC/OP 09:57
PROVIDERS: ATTEND Internal Medicine Hematology & Oncology
DX: Z51.12 Encounter for antineoplastic immunotherapy (principal); C50.211 Malignant neoplasm of upper-inner quadrant of right female breast; D50.0 Iron deficiency anemia secondary to blood loss (chronic); M81.8 Other osteoporosis without current pathological fracture; Z88.5 Allergy status to narcotic agent
CPT/HCPCS: 36415; 80053; 86300; 96413; J1642; J7050; Q5117

== ENCOUNTER 2021-03-29 12:31 | Outpatient (CLI) | payer MEDICARE, MEDICAID | END 2021-03-29 12:32 | disposition home or self-care (01) | LOC: ULT 12:31 | PROVIDERS: ATTEND Internal Medicine Hematology & Oncology | DX: Z51.11 Encounter for antineoplastic chemotherapy (principal); C50.211 Malignant neoplasm of upper-inner quadrant of right female breast; Z79.899 Other long term (current) drug therapy; I07.1 Rheumatic tricuspid insufficiency | CPT/HCPCS: 93306 ==

== ENCOUNTER 2021-03-31 07:33 | Outpatient (CLI) | payer MEDICARE, OTHER | END 2021-03-31 07:34 | disposition home or self-care (01) | LOC: CT 07:33 | PROVIDERS: ATTEND Internal Medicine Hematology & Oncology | DX: C50.211 Malignant neoplasm of upper-inner quadrant of right female breast (principal); C79.51 Secondary malignant neoplasm of bone; N85.8 Other specified noninflammatory disorders of uterus; Z98.890 Other specified postprocedural states | CPT/HCPCS: 70553; 71260; 74177; 78306; 82565; A9503 ==

== ENCOUNTER 2021-04-06 08:51 | Day surgery (SDC) | payer MEDICARE, MEDICAID ==
[2021-04-06] MEDS ORDERED: Sodium Chloride 0.9% 10 ML ONE (08:59)
[2021-04-06 09:29] VITALS: BP 130/63
== END 2021-04-06 14:27 | disposition home or self-care (01) ==
LOC: ONC/OP 08:51
PROVIDERS: ATTEND Internal Medicine Hematology & Oncology
DX: Z51.12 Encounter for antineoplastic immunotherapy (principal); C50.211 Malignant neoplasm of upper-inner quadrant of right female breast; D50.0 Iron deficiency anemia secondary to blood loss (chronic); M81.8 Other osteoporosis without current pathological fracture; Z88.5 Allergy status to narcotic agent
CPT/HCPCS: 96413; J1642; J7050; Q5117

== ENCOUNTER 2021-04-27 10:31 | Day surgery (SDC) | payer MEDICARE, MEDICAID ==
[2021-04-27] MEDS ORDERED: Sodium Chloride 0.9% 10 ML ONE (10:57)
[2021-04-27 12:32] VITALS: BP 136/66; TEMP 98.3
== END 2021-04-27 12:38 | disposition home or self-care (01) ==
LOC: ONC/OP 10:31
PROVIDERS: ATTEND Internal Medicine Hematology & Oncology
DX: Z51.12 Encounter for antineoplastic immunotherapy (principal); C50.211 Malignant neoplasm of upper-inner quadrant of right female breast; D50.0 Iron deficiency anemia secondary to blood loss (chronic); M81.8 Other osteoporosis without current pathological fracture; Z88.5 Allergy status to narcotic agent
CPT/HCPCS: 36415; 80053; 86300; 96413; J1642; J7050; Q5117

== ENCOUNTER 2021-06-23 13:39 | Outpatient (CLI) | payer MEDICARE, MEDICAID ==
[2021-06-23] MEDS ORDERED: Magnevist 469MG/ML 20 ML VIAL ONE (15:19)
== END 2021-06-23 13:40 | disposition home or self-care (01) ==
LOC: MRI 13:39
PROVIDERS: ATTEND Internal Medicine Hematology & Oncology
DX: Z51.11 Encounter for antineoplastic chemotherapy (principal); C79.51 Secondary malignant neoplasm of bone; C79.31 Secondary malignant neoplasm of brain; C50.211 Malignant neoplasm of upper-inner quadrant of right female breast; I08.3 Combined rheumatic disorders of mitral, aortic and tricuspid valves; Z79.899 Other long term (current) drug therapy
CPT/HCPCS: 70553; 93306; A9579

== ENCOUNTER 2021-06-27 07:35 | Outpatient (CLI) | payer MEDICARE, MEDICAID | END 2021-06-27 07:36 | disposition home or self-care (01) | LOC: CT 07:35 | PROVIDERS: ATTEND Internal Medicine Hematology & Oncology | DX: C79.51 Secondary malignant neoplasm of bone (principal); C50.211 Malignant neoplasm of upper-inner quadrant of right female breast; N89.8 Other specified noninflammatory disorders of vagina | CPT/HCPCS: 71260; 74177; 78306; A9503; J1642 ==

== ENCOUNTER → 2021-06-29 | Day surgery (SDC) | payer MEDICARE, MEDICAID ==
[2021-06-29 10:44] VITALS: BP 141/64; TEMP 98
== END | disposition home or self-care (01) ==
LOC: ONC/OP 10:03
PROVIDERS: ATTEND Internal Medicine Hematology & Oncology
DX: Z51.12 Encounter for antineoplastic immunotherapy (principal); C50.211 Malignant neoplasm of upper-inner quadrant of right female breast; D50.0 Iron deficiency anemia secondary to blood loss (chronic); M81.8 Other osteoporosis without current pathological fracture; Z88.5 Allergy status to narcotic agent
CPT/HCPCS: 80053; 85025; 86300; 96413; J1642; J7050; Q5117

== ENCOUNTER 2021-07-20 11:09 | Day surgery (SDC) | payer MEDICARE, MEDICAID ==
[2021-07-20 12:03] VITALS: BP 106/61; TEMP 97.9
== END 2021-07-20 13:03 | disposition home or self-care (01) ==
LOC: ONC/OP 11:09
PROVIDERS: ATTEND Internal Medicine Hematology & Oncology
DX: Z51.12 Encounter for antineoplastic immunotherapy (principal); C50.211 Malignant neoplasm of upper-inner quadrant of right female breast; D50.0 Iron deficiency anemia secondary to blood loss (chronic); M81.8 Other osteoporosis without current pathological fracture; Z88.5 Allergy status to narcotic agent
CPT/HCPCS: 36415; 80053; 82248; 83615; 84100; 84550; 86300; 96413; J1642; J7050; Q5117

== ENCOUNTER 2021-08-10 12:04 | Day surgery (SDC) | payer MEDICARE, OTHER, MEDICAID ==
[2021-08-10 12:17] VITALS: BP 122/56; TEMP 98.6
== END 2021-08-10 14:23 | disposition home or self-care (01) ==
LOC: ONC/OP 12:04
PROVIDERS: ATTEND Internal Medicine Hematology & Oncology
DX: Z51.12 Encounter for antineoplastic immunotherapy (principal); C50.211 Malignant neoplasm of upper-inner quadrant of right female breast; D50.0 Iron deficiency anemia secondary to blood loss (chronic); M81.8 Other osteoporosis without current pathological fracture; Z88.5 Allergy status to narcotic agent
CPT/HCPCS: 36415; 80053; 86300; 96413; J1642; J7050; Q5117

== ENCOUNTER 2021-09-22 11:56 | Outpatient (CLI) | payer OTHER ==
[~2021-09-22 11:56] MED LIST changes: +Gadobenate Dimeglumine 529 MG/1 ML (20ML VIAL) ONE; -SODIUM CHLORIDE 0.9% IVPB SCH; -TRASTUZUMAB ANNS IVPB SCH
== END 2021-09-22 11:57 | disposition home or self-care (01) ==
LOC: MRI 11:56
PROVIDERS: ATTEND Internal Medicine Hematology & Oncology
DX: Z51.11 Encounter for antineoplastic chemotherapy (principal); C79.51 Secondary malignant neoplasm of bone; C79.31 Secondary malignant neoplasm of brain; C50.211 Malignant neoplasm of upper-inner quadrant of right female breast; D50.0 Iron deficiency anemia secondary to blood loss (chronic); M81.8 Other osteoporosis without current pathological fracture; Z79.899 Other long term (current) drug therapy
CPT/HCPCS: 70553; 93306; A9577

== ENCOUNTER 2021-09-23 10:58 | Day surgery (SDC) | payer MEDICARE, MEDICAID ==
[~2021-09-23 10:58] MED LIST changes: -Gadobenate Dimeglumine 529 MG/1 ML (20ML VIAL) ONE; +SODIUM CHLORIDE 0.9% IVPB SCH; +TRASTUZUMAB ANNS IVPB SCH
[2021-09-23 13:23] VITALS: BP 111/60; TEMP 98.7
== END 2021-09-23 13:26 | disposition home or self-care (01) ==
LOC: ONC/OP 10:58
PROVIDERS: ATTEND Internal Medicine Hematology & Oncology
DX: Z51.11 Encounter for antineoplastic chemotherapy (principal); C50.211 Malignant neoplasm of upper-inner quadrant of right female breast; D50.0 Iron deficiency anemia secondary to blood loss (chronic); M81.8 Other osteoporosis without current pathological fracture; Z88.5 Allergy status to narcotic agent
CPT/HCPCS: 36415; 80053; 86300; 96413; J1642; J7050; Q5117

== ENCOUNTER 2021-09-30 10:15 | Outpatient (CLI) | payer MEDICARE, OTHER | END 2021-09-30 10:16 | disposition home or self-care (01) | LOC: NM 10:15 | PROVIDERS: ATTEND Internal Medicine Hematology & Oncology | DX: C50.211 Malignant neoplasm of upper-inner quadrant of right female breast (principal); C79.51 Secondary malignant neoplasm of bone; D50.0 Iron deficiency anemia secondary to blood loss (chronic); M81.8 Other osteoporosis without current pathological fracture; M79.89 Other specified soft tissue disorders | CPT/HCPCS: 71260; 74177; 78306; A9503 ==

== ENCOUNTER → 2021-10-14 | Day surgery (SDC) | payer MEDICARE, MEDICAID ==
[2021-10-14 12:15] VITALS: BP 137/65; TEMP 98.2
== END ==
LOC: ONC/OP 11:20
PROVIDERS: ATTEND Internal Medicine Hematology & Oncology
DX: Z51.11 Encounter for antineoplastic chemotherapy (principal); C50.211 Malignant neoplasm of upper-inner quadrant of right female breast; D50.0 Iron deficiency anemia secondary to blood loss (chronic); M81.8 Other osteoporosis without current pathological fracture
CPT/HCPCS: 36415; 80053; 86300; 96413; J1642; J7050; Q5117

== ENCOUNTER 2021-11-03 11:09 | Day surgery (SDC) | payer OTHER, MEDICAID ==
[2021-11-03] MEDS ORDERED: TRASTUZUMAB ANNS IVPB SCH (11:45)
[2021-11-03] MEDS ORDERED: SODIUM CHLORIDE 0.9% IVPB SCH (11:45)
[2021-11-03 13:23] VITALS: BP 126/68; TEMP 98.6
== END 2021-11-03 13:20 | disposition home or self-care (01) ==
LOC: ONC/OP 11:09
PROVIDERS: ATTEND Internal Medicine Hematology & Oncology
DX: Z51.12 Encounter for antineoplastic immunotherapy (principal); C50.211 Malignant neoplasm of upper-inner quadrant of right female breast; D50.0 Iron deficiency anemia secondary to blood loss (chronic); M81.8 Other osteoporosis without current pathological fracture; Z88.5 Allergy status to narcotic agent
CPT/HCPCS: 36415; 80053; 86300; 96413; J1642; J7050; Q5117

== ENCOUNTER 2021-11-24 10:31 | Day surgery (SDC) | payer OTHER, MEDICAID ==
[2021-11-24 11:43] VITALS: BP 127/60; TEMP 98.6
== END 2021-11-24 16:54 | disposition home or self-care (01) ==
LOC: ONC/OP 10:31
PROVIDERS: ATTEND Internal Medicine Hematology & Oncology
DX: Z51.12 Encounter for antineoplastic immunotherapy (principal); C50.211 Malignant neoplasm of upper-inner quadrant of right female breast; D50.0 Iron deficiency anemia secondary to blood loss (chronic); M81.8 Other osteoporosis without current pathological fracture; Z88.5 Allergy status to narcotic agent
CPT/HCPCS: 36415; 80053; 86300; 96413; J1642; J7050; Q5117

== ENCOUNTER 2021-12-15 11:05 | Day surgery (SDC) | payer OTHER, MEDICAID ==
[2021-12-15 11:46] VITALS: BP 136/64; TEMP 98
== END 2021-12-15 14:39 | disposition home or self-care (01) ==
LOC: ONC/OP 11:05
PROVIDERS: ATTEND Internal Medicine Hematology & Oncology
DX: Z51.12 Encounter for antineoplastic immunotherapy (principal); C50.211 Malignant neoplasm of upper-inner quadrant of right female breast; D50.0 Iron deficiency anemia secondary to blood loss (chronic); M81.8 Other osteoporosis without current pathological fracture; Z88.5 Allergy status to narcotic agent
CPT/HCPCS: 36415; 80053; 86300; 96413; J1642; J7050; Q5117

== ENCOUNTER 2021-12-22 12:47 | Outpatient (CLI) | payer OTHER, MEDICAID | END 2021-12-22 12:48 | disposition home or self-care (01) | LOC: ULT 12:47 | PROVIDERS: ATTEND Internal Medicine Hematology & Oncology | DX: Z51.11 Encounter for antineoplastic chemotherapy (principal); C79.51 Secondary malignant neoplasm of bone; C50.211 Malignant neoplasm of upper-inner quadrant of right female breast; C71.9 Malignant neoplasm of brain, unspecified; M81.8 Other osteoporosis without current pathological fracture; D50.0 Iron deficiency anemia secondary to blood loss (chronic); I07.1 Rheumatic tricuspid insufficiency; Z79.899 Other long term (current) drug therapy | CPT/HCPCS: 93306 ==

== ENCOUNTER 2022-01-09 08:57 | Outpatient (CLI) | payer OTHER | END 2022-01-09 08:58 | disposition home or self-care (01) | LOC: SCSMRI 08:57 | PROVIDERS: ATTEND Internal Medicine Hematology & Oncology | DX: Z51.11 Encounter for antineoplastic chemotherapy (principal); C79.51 Secondary malignant neoplasm of bone; C79.31 Secondary malignant neoplasm of brain; C50.211 Malignant neoplasm of upper-inner quadrant of right female breast; Z79.899 Other long term (current) drug therapy | CPT/HCPCS: 70553 ==

== ENCOUNTER 2022-01-11 09:54 | Outpatient (CLI) | payer OTHER | END 2022-01-11 09:55 | disposition home or self-care (01) | LOC: NM 09:54 | PROVIDERS: ATTEND Internal Medicine Hematology & Oncology | DX: C79.51 Secondary malignant neoplasm of bone (principal); C79.31 Secondary malignant neoplasm of brain; C50.919 Malignant neoplasm of unspecified site of unspecified female breast | CPT/HCPCS: 78306; A9503; J1642 ==

== ENCOUNTER 2022-02-02 10:40 | Day surgery (SDC) | payer OTHER, MEDICAID ==
[2022-02-02 11:14] VITALS: BP 151/74; TEMP 98.2
[2022-02-02] MEDS ORDERED: SODIUM CHLORIDE 0.9% IV SCH (11:15)
[2022-02-02] MEDS ORDERED: TRASTUZUMAB ANNS IV SCH (11:15)
[2022-02-02] MEDS ORDERED: SODIUM CHLORIDE 0.9% IVPB SCH (11:45)
[2022-02-02] MEDS ORDERED: TRASTUZUMAB ANNS IVPB SCH (11:45)
== END 2022-02-02 12:52 | disposition home or self-care (01) ==
LOC: ONC/OP 10:40
PROVIDERS: ATTEND Internal Medicine Hematology & Oncology
DX: Z51.11 Encounter for antineoplastic chemotherapy (principal); C50.211 Malignant neoplasm of upper-inner quadrant of right female breast; D50.0 Iron deficiency anemia secondary to blood loss (chronic); M81.8 Other osteoporosis without current pathological fracture; Z88.5 Allergy status to narcotic agent
CPT/HCPCS: 36415; 80053; 86300; 96413; J1642; J7050; Q5117

== ENCOUNTER 2022-03-02 10:39 | Day surgery (SDC) | payer OTHER, MEDICAID ==
[2022-03-02] MEDS ORDERED: SODIUM CHLORIDE 0.9% IVPB SCH (12:00)
[2022-03-02] MEDS ORDERED: TRASTUZUMAB ANNS IVPB SCH (12:00)
[2022-03-02 12:22] VITALS: BP 135/73; TEMP 98.1
== END 2022-03-02 12:38 | disposition home or self-care (01) ==
LOC: ONC/OP 10:39
PROVIDERS: ATTEND Internal Medicine Hematology & Oncology
DX: Z51.12 Encounter for antineoplastic immunotherapy (principal); C50.211 Malignant neoplasm of upper-inner quadrant of right female breast; D50.0 Iron deficiency anemia secondary to blood loss (chronic); M81.8 Other osteoporosis without current pathological fracture; Z88.5 Allergy status to narcotic agent
CPT/HCPCS: 36415; 80053; 86300; 96413; J1642; J7050; Q5117

== ENCOUNTER 2022-03-23 10:01 | Day surgery (SDC) | payer OTHER, MEDICAID ==
[2022-03-23 11:35] VITALS: BP 143/65; TEMP 98.1
== END 2022-03-23 11:36 | disposition home or self-care (01) ==
LOC: ONC/OP 10:01
PROVIDERS: ATTEND Internal Medicine Hematology & Oncology
DX: Z51.12 Encounter for antineoplastic immunotherapy (principal); C50.211 Malignant neoplasm of upper-inner quadrant of right female breast; D50.0 Iron deficiency anemia secondary to blood loss (chronic); M81.8 Other osteoporosis without current pathological fracture; Z88.5 Allergy status to narcotic agent
CPT/HCPCS: 96413; J7050; Q5117

== ENCOUNTER 2022-04-04 13:30 | Outpatient (CLI) | payer OTHER | END 2022-04-04 13:31 | disposition home or self-care (01) | LOC: ULT 13:30 | PROVIDERS: ATTEND Internal Medicine Hematology & Oncology | DX: Z51.11 Encounter for antineoplastic chemotherapy (principal); C50.211 Malignant neoplasm of upper-inner quadrant of right female breast; D50.0 Iron deficiency anemia secondary to blood loss (chronic); M81.8 Other osteoporosis without current pathological fracture; Z79.899 Other long term (current) drug therapy | CPT/HCPCS: 93306 ==

== ENCOUNTER 2022-04-06 08:43 | Outpatient (CLI) | payer OTHER | END 2022-04-06 08:44 | disposition home or self-care (01) | LOC: CT 08:43 | PROVIDERS: ATTEND Internal Medicine Hematology & Oncology | DX: C50.211 Malignant neoplasm of upper-inner quadrant of right female breast (principal); D50.0 Iron deficiency anemia secondary to blood loss (chronic); M81.8 Other osteoporosis without current pathological fracture; K59.00 Constipation, unspecified | CPT/HCPCS: 71260; 74177; 78306; A9503 ==

== ENCOUNTER 2022-04-13 10:01 | Day surgery (SDC) | payer OTHER | END 2022-04-13 16:51 | disposition home or self-care (01) | LOC: ONC/OP 10:01 | PROVIDERS: ATTEND Internal Medicine Hematology & Oncology | DX: Z51.12 Encounter for antineoplastic immunotherapy (principal); Z53.8 Procedure and treatment not carried out for other reasons; Z88.5 Allergy status to narcotic agent ==

== ENCOUNTER 2022-04-19 09:37 | Day surgery (SDC) | payer OTHER ==
[2022-04-19 10:02] VITALS: BP 124/70; TEMP 98.2
== END 2022-04-19 10:50 | disposition home or self-care (01) ==
LOC: ONC/OP 09:37
PROVIDERS: ATTEND Internal Medicine Hematology & Oncology
DX: Z51.12 Encounter for antineoplastic immunotherapy (principal); C50.211 Malignant neoplasm of upper-inner quadrant of right female breast; D50.0 Iron deficiency anemia secondary to blood loss (chronic); M81.8 Other osteoporosis without current pathological fracture; Z88.5 Allergy status to narcotic agent
CPT/HCPCS: 36415; 80053; 86300; 96413; J1642; J7050; Q5117

== ENCOUNTER 2022-04-20 10:43 | Outpatient (CLI) | payer OTHER | END 2022-04-20 10:44 | disposition home or self-care (01) | LOC: MRI 10:43 | PROVIDERS: ATTEND Internal Medicine Hematology & Oncology | DX: Z51.11 Encounter for antineoplastic chemotherapy (principal); C79.51 Secondary malignant neoplasm of bone; C50.211 Malignant neoplasm of upper-inner quadrant of right female breast; C71.9 Malignant neoplasm of brain, unspecified; M81.8 Other osteoporosis without current pathological fracture; D50.0 Iron deficiency anemia secondary to blood loss (chronic) | CPT/HCPCS: 70553 ==

== ENCOUNTER 2022-05-11 10:34 | Day surgery (SDC) | payer OTHER ==
[2022-05-11] MEDS ORDERED: TRASTUZUMAB ANNS IVPB SCH (11:00)
[2022-05-11] MEDS ORDERED: SODIUM CHLORIDE 0.9% IVPB SCH (11:00)
[2022-05-11 11:50] VITALS: BP 140/72; TEMP 98.2
== END 2022-05-11 13:39 | disposition home or self-care (01) ==
LOC: ONC/OP 10:34
PROVIDERS: ATTEND Internal Medicine Hematology & Oncology
DX: Z51.12 Encounter for antineoplastic immunotherapy (principal); C50.211 Malignant neoplasm of upper-inner quadrant of right female breast; D50.0 Iron deficiency anemia secondary to blood loss (chronic); M81.8 Other osteoporosis without current pathological fracture; Z88.5 Allergy status to narcotic agent
CPT/HCPCS: 96413; J1642; J7050; Q5117

== ENCOUNTER 2022-06-01 09:43 | Day surgery (SDC) | payer OTHER ==
[2022-06-01 10:50] VITALS: BP 155/71; TEMP 97.9
== END 2022-06-01 11:12 | disposition home or self-care (01) ==
LOC: ONC/OP 09:43
PROVIDERS: ATTEND Internal Medicine Hematology & Oncology
DX: Z51.12 Encounter for antineoplastic immunotherapy (principal); C50.211 Malignant neoplasm of upper-inner quadrant of right female breast; D50.0 Iron deficiency anemia secondary to blood loss (chronic); M81.8 Other osteoporosis without current pathological fracture; Z88.5 Allergy status to narcotic agent
CPT/HCPCS: 96413; Q5117; J1642; J7050

== ENCOUNTER 2022-06-30 13:23 | Outpatient (CLI) | payer OTHER | END 2022-06-30 13:24 | disposition home or self-care (01) | LOC: ULT 13:23 | PROVIDERS: ATTEND Internal Medicine Hematology & Oncology | DX: Z51.11 Encounter for antineoplastic chemotherapy (principal); C50.211 Malignant neoplasm of upper-inner quadrant of right female breast; D50.0 Iron deficiency anemia secondary to blood loss (chronic); M81.8 Other osteoporosis without current pathological fracture; I08.1 Rheumatic disorders of both mitral and tricuspid valves; Z79.899 Other long term (current) drug therapy | CPT/HCPCS: 93306 ==

== ENCOUNTER 2022-07-04 10:08 | Outpatient (CLI) | payer OTHER ==
[~2022-07-04 10:08] MED LIST changes: +Iopamidol 370 76% 100 ML VIAL ONE; -SODIUM CHLORIDE 0.9% IVPB SCH; -TRASTUZUMAB ANNS IVPB SCH
== END 2022-07-04 10:09 | disposition home or self-care (01) ==
LOC: CT 10:08
PROVIDERS: ATTEND Internal Medicine Hematology & Oncology
DX: C50.211 Malignant neoplasm of upper-inner quadrant of right female breast (principal); C79.51 Secondary malignant neoplasm of bone; C71.9 Malignant neoplasm of brain, unspecified; R22.2 Localized swelling, mass and lump, trunk; D50.0 Iron deficiency anemia secondary to blood loss (chronic); M81.8 Other osteoporosis without current pathological fracture
CPT/HCPCS: 71260; 74177; 78306; 82565; A9503; Q9967

== ENCOUNTER 2022-07-19 09:46 | Day surgery (SDC) | payer OTHER ==
[~2022-07-19 09:46] MED LIST changes: -Iopamidol 370 76% 100 ML VIAL ONE; +Ondansetron 2MG/ML MDV 10 MG in Sodium Chloride 0.9% 50 ML IVPB SCH
[2022-07-19] MEDS ORDERED: [UNRECOGNIZED DRUG - OTHER] IV SCH (12:00)
[2022-07-19] MEDS ORDERED: WATER IV SCH (12:00)
[2022-07-19] MEDS ORDERED: DEXTROSE 5% IV SCH (12:00)
[2022-07-19 12:49] VITALS: BP 143/67; TEMP 98.2
== END 2022-07-19 13:59 | disposition home or self-care (01) ==
LOC: ONC/OP 09:46
PROVIDERS: ATTEND Internal Medicine Hematology & Oncology
DX: Z51.12 Encounter for antineoplastic immunotherapy (principal); C50.211 Malignant neoplasm of upper-inner quadrant of right female breast; D50.0 Iron deficiency anemia secondary to blood loss (chronic); M81.8 Other osteoporosis without current pathological fracture; Z88.5 Allergy status to narcotic agent
CPT/HCPCS: 96366; 96413; J9358; J1642; J2405; J7070

== ENCOUNTER 2022-10-10 08:39 | Outpatient (CLI) | payer OTHER ==
[2022-10-10] MEDS ORDERED: Iopamidol 370 76% 100 ML VIAL ONE (10:59)
== END 2022-10-10 08:40 | disposition home or self-care (01) ==
LOC: CT 08:39
PROVIDERS: ATTEND Internal Medicine Hematology & Oncology
DX: Z51.11 Encounter for antineoplastic chemotherapy (principal); C50.211 Malignant neoplasm of upper-inner quadrant of right female breast; M81.8 Other osteoporosis without current pathological fracture; C79.51 Secondary malignant neoplasm of bone; C71.9 Malignant neoplasm of brain, unspecified; D50.0 Iron deficiency anemia secondary to blood loss (chronic); Z79.899 Other long term (current) drug therapy
CPT/HCPCS: 71260; 74177; 78306; 82565; 93306; A9503; Q9967

== ENCOUNTER 2022-10-11 12:04 | Day surgery (SDC) | payer OTHER ==
[~2022-10-11 12:04] MED LIST changes: +DEXTROSE 5% IV SCH; +WATER IV SCH; +[UNRECOGNIZED DRUG - OTHER] IV SCH
[2022-10-11 13:39] VITALS: BP 143/74; TEMP 98.3
== END 2022-10-11 14:36 | disposition home or self-care (01) ==
LOC: ONC/OP 12:04
PROVIDERS: ATTEND Internal Medicine Hematology & Oncology
DX: C50.211 Malignant neoplasm of upper-inner quadrant of right female breast (principal); D50.0 Iron deficiency anemia secondary to blood loss (chronic); M81.8 Other osteoporosis without current pathological fracture; Z88.6 Allergy status to analgesic agent
CPT/HCPCS: 96366; 96413; J9358; 36415; 80053; J1642; J2405; J7070

== ENCOUNTER 2022-11-01 10:47 | Day surgery (SDC) | payer OTHER ==
[~2022-11-01 10:47] MED LIST changes: +Ondansetron HCl/PF 10 MG in Sodium Chloride 0.9% 50 ML IVPB SCH
[2022-11-01 11:09] VITALS: BP 124/71; TEMP 97.9
== END 2022-11-01 12:50 | disposition home or self-care (01) ==
LOC: ONC/OP 10:47
PROVIDERS: ATTEND Internal Medicine Hematology & Oncology
DX: C50.211 Malignant neoplasm of upper-inner quadrant of right female breast (principal); D50.0 Iron deficiency anemia secondary to blood loss (chronic); M81.8 Other osteoporosis without current pathological fracture; Z88.6 Allergy status to analgesic agent; Z88.5 Allergy status to narcotic agent
CPT/HCPCS: 96367; 96413; J9358; 80053; J2405; J7070

== ENCOUNTER 2022-11-22 10:17 | Day surgery (SDC) | payer OTHER ==
[~2022-11-22 10:17] MED LIST changes: -Ondansetron HCl/PF 10 MG in Sodium Chloride 0.9% 50 ML IVPB SCH
[2022-11-22 11:21] VITALS: BP 138/73; TEMP 98.2
== END 2022-11-22 12:07 | disposition home or self-care (01) ==
LOC: ONC/OP 10:17
PROVIDERS: ATTEND Internal Medicine Hematology & Oncology
DX: C50.211 Malignant neoplasm of upper-inner quadrant of right female breast (principal); D50.0 Iron deficiency anemia secondary to blood loss (chronic); M81.8 Other osteoporosis without current pathological fracture; Z88.6 Allergy status to analgesic agent; Z88.5 Allergy status to narcotic agent
CPT/HCPCS: 96366; 96413; J9358; 80053; J1642; J2405; J7070

== ENCOUNTER 2022-12-13 10:10 | Day surgery (SDC) | payer OTHER ==
[2022-12-13 16:29] VITALS: BP 136/67; TEMP 97.7
== END 2022-12-13 13:13 | disposition home or self-care (01) ==
LOC: ONC/OP 10:10
PROVIDERS: ATTEND Internal Medicine Hematology & Oncology
DX: C50.211 Malignant neoplasm of upper-inner quadrant of right female breast (principal); D50.0 Iron deficiency anemia secondary to blood loss (chronic); M81.8 Other osteoporosis without current pathological fracture; Z88.5 Allergy status to narcotic agent
CPT/HCPCS: 96367; 96413; J9358; 80053; J1642; J2405; J7070

== ENCOUNTER → 2023-01-03 | Day surgery (SDC) | payer OTHER ==
[2023-01-03 11:31] VITALS: BP 130/63; TEMP 97.8
== END ==
LOC: ONC/OP 10:41
PROVIDERS: ATTEND Internal Medicine Hematology & Oncology
DX: C50.211 Malignant neoplasm of upper-inner quadrant of right female breast (principal); D50.0 Iron deficiency anemia secondary to blood loss (chronic); M81.8 Other osteoporosis without current pathological fracture; Z88.6 Allergy status to analgesic agent; Z88.5 Allergy status to narcotic agent
CPT/HCPCS: 96375; 96413; J9358; 36415; 80053; J1642; J2405; J7070

== ENCOUNTER 2023-01-09 08:10 | Outpatient (CLI) | payer OTHER ==
[2023-01-09] MEDS ORDERED: Iopamidol 370 76% 100 ML VIAL ONE (11:35)
== END 2023-01-09 08:11 | disposition home or self-care (01) ==
LOC: CT 08:10
PROVIDERS: ATTEND Internal Medicine Hematology & Oncology
DX: C50.211 Malignant neoplasm of upper-inner quadrant of right female breast (principal); C79.51 Secondary malignant neoplasm of bone; C79.31 Secondary malignant neoplasm of brain; E07.9 Disorder of thyroid, unspecified; N28.1 Cyst of kidney, acquired; M51.36 Other intervertebral disc degeneration, lumbar region
CPT/HCPCS: 71260; 74177; 78306; A9503; Q9967

== ENCOUNTER 2023-01-12 10:58 | Outpatient (CLI) | payer OTHER | END 2023-01-12 10:59 | disposition home or self-care (01) | LOC: EEVIPCON 10:58 → MRI 10:58 | PROVIDERS: ATTEND Internal Medicine Hematology & Oncology | DX: Z51.11 Encounter for antineoplastic chemotherapy (principal); C50.211 Malignant neoplasm of upper-inner quadrant of right female breast; C79.31 Secondary malignant neoplasm of brain; C79.51 Secondary malignant neoplasm of bone; I34.0 Nonrheumatic mitral (valve) insufficiency; I51.7 Cardiomegaly; Z79.899 Other long term (current) drug therapy | CPT/HCPCS: 70553; 93306 ==

== ENCOUNTER 2023-01-24 10:59 | Day surgery (SDC) | payer OTHER ==
[2023-01-24 12:05] VITALS: BP 132/61; TEMP 97.9
[2023-01-24] MEDS ORDERED: FLU VACC QS2023(65UP)/MF59C/PF 60 MCG/0.5 ML SYRINGE IM ONE (15:00)
== END 2023-01-24 13:03 | disposition home or self-care (01) ==
LOC: ONC/OP 10:59
PROVIDERS: ATTEND Internal Medicine Hematology & Oncology
DX: C50.211 Malignant neoplasm of upper-inner quadrant of right female breast (principal); D50.0 Iron deficiency anemia secondary to blood loss (chronic); M81.8 Other osteoporosis without current pathological fracture; Z88.5 Allergy status to narcotic agent
CPT/HCPCS: 96366; 96413; J9358; J1642; J2405; J7070

== ENCOUNTER 2023-02-14 11:59 | Day surgery (SDC) | payer OTHER ==
[~2023-02-14 11:59] MED LIST changes: +Ondansetron HCl/PF 10 MG in Sodium Chloride 0.9% 50 ML IVPB SCH
[2023-02-14 12:54] VITALS: BP 125/65; TEMP 98.1
[2023-02-14] MEDS ORDERED: FLU VACC QS2023(65UP)/MF59C/PF 60 MCG/0.5 ML SYRINGE IM ONE (18:00)
== END 2023-02-14 13:52 | disposition home or self-care (01) ==
LOC: ONC/OP 11:59
PROVIDERS: ATTEND Internal Medicine Hematology & Oncology
DX: C50.211 Malignant neoplasm of upper-inner quadrant of right female breast (principal); D50.0 Iron deficiency anemia secondary to blood loss (chronic); M81.8 Other osteoporosis without current pathological fracture; Z88.5 Allergy status to narcotic agent
CPT/HCPCS: 96366; 96413; J9358; 36415; 80053; J1642; J2405; J7070

== ENCOUNTER 2023-03-08 12:23 | Outpatient (CLI) | payer OTHER ==
[2023-03-08 14:08] LABS: #Eosinphils 0.2 10x3/uL (0.0-0.5); #Monocytes 0.4 10x3/uL (0.0-1.1); #Neutrophils 1.8 10x3/uL (1.5-8.4); %Basophils 1.1 % (0.0-2.0); %Eosinophils 5.1 % (0.0-6.0); %Lymphocytes 34.2 % (18.0-47.0); %Monocytes 10.8 % (0.0-10.0); %Neutrophils 48.5 % (40.0-75.0); Hematocrit 34.2 % (34.9-44.5); Hemoglobin 11.4 g/dL (12.0-15.5); Mean Corpuscular HGB CONC 33.3 g/dL (32.0-36.0); Mean Corpuscular Hemoglobin 33.2 pg (27.0-33.0); Mean Corpuscular Volume 99.7 fl (81.6-98.3); Mean Platelet Volume 9.5 fl (7.4-10.4); Platelet Count 243 10x3/uL (150-450); RBC Distribution Width 15.9 % (11.5-14.5); Red Blood Cell (RBC) Count 3.43 10x6/uL (3.90-5.03); White Blood Cell (WBC) Count 3.7 10x3/uL (3.5-10.5)
[2023-03-08 14:24] LABS: Anion Gap 12 mmol/L (10-20); BUN (Urea Nitrogen) 9 mg/dL (9.8-20.1); Calc. Creatinine Clearance 0 mL/min (70-130); Calcium 9.4 mg/dL (7.8-10.44); Carbon Dioxide 25 mmol/L (23-31); Chloride 109 mmol/L (98-107); Estimated GFR 74; Glucose 76 mg/dL (80-115); Potassium 4.4 mmol/L (3.5-5.1); Sodium 142 mmol/L (136-145)
== END 2023-03-08 12:24 | disposition home or self-care (01) ==
LOC: LABBT 12:23
PROVIDERS: ATTEND Specialist
DX: Z01.818 Encounter for other preprocedural examination (principal); C50.911 Malignant neoplasm of unspecified site of right female breast
CPT/HCPCS: 71046; 80048; 85025; 93005; 93010

== ENCOUNTER 2023-03-13 06:01 | Inpatient (IN) | payer OTHER, MEDICAID ==
[2023-03-08 13:25] VITALS: BMI 30.9
[2023-03-13] MEDS ORDERED: Acetaminophen 500 MG TAB ONE (06:37)
[2023-03-13] MEDS ORDERED: Ketorolac Tromethamine 30 MG (1 mL) VIAL ONE (06:37)
[2023-03-13] MEDS ORDERED: Scopolamine 1 mg/72 hour Patch ONE (07:14)
[2023-03-13] MEDS ORDERED: Famotidine/PF 20 mg/2ml Vial ONE (07:15)
[2023-03-13] MEDS ORDERED: Sodium Chloride 0.9% 100 ML ONE (07:25)
[2023-03-13] MEDS ORDERED: CEFAZOLIN 2 GM VIAL ONE (07:25)
[2023-03-13] MEDS ORDERED: Dexmedetomidine 200 MCG/2 ML VIAL ONE (07:27)
[2023-03-13] MEDS ORDERED: Midazolam HCl 2 mg/2 ml Vial ONE (07:28)
[2023-03-13] MEDS ORDERED: fentaNYL 50 mcg/mL 1 mL Vial ONE ×6 (07:28→17:25)
[2023-03-13] MEDS ORDERED: PROPOFOL 20 ML ONE (07:29)
[2023-03-13] MEDS ORDERED: Rocuronium Bromide 10 MG/ML (10ML VIAL) ONE (07:30)
[2023-03-13] MEDS ORDERED: Ondansetron PF 4 MG/2 ML Vial ONE (07:30)
[2023-03-13] MEDS ORDERED: Dexamethasone 4 mg/ml Vial ONE (07:30)
[2023-03-13] MEDS ORDERED: Lidocaine 1% PF 5 ML VIAL ONE (07:30)
[2023-03-13] MEDS ORDERED: Metoclopramide HCl 10 MG (2 mL) VIAL ONE (07:30)
[2023-03-13] MEDS ORDERED: Ropivacaine 0.2% HCl/PF 20 ML ONE ×2 (08:16→08:17)
[2023-03-13] MEDS ORDERED: Ropivacaine 0.5% HCl/PF (150 MG/30 ML VIAL) ONE (08:16)
[2023-03-13] MEDS ORDERED: ePHEDrine Sulfate 50 MG/10 ML VIAL ONE (08:44)
[2023-03-13] MEDS ORDERED: PHENYLEPHRINE-NS 100 MCG/ML 10 ML SYRINGE ONE (09:16)
[2023-03-13] MEDS ORDERED: Promethazine HCl 25 MG/ML VIAL IM PRN ×2 (11:14→11:31)
[2023-03-13] MEDS ORDERED: Ondansetron HCl/PF 4 MG/2 ML Vial IVP PRN (11:14)
[2023-03-13] MEDS ORDERED: HYDROmorphone 2 MG/ML VIAL SLOW IVP PRN (11:14)
[2023-03-13] MEDS ORDERED: Dextrose 50% Abboject 50 ML SYRINGE SLOW IVP PRN (11:31)
[2023-03-13] MEDS ORDERED: Dextrose 5% in Water 1,000 ML IV PRN (11:31)
[2023-03-13] MEDS ORDERED: Promethazine 25 MG TAB PO PRN (11:31)
[2023-03-13] MEDS ORDERED: Ibuprofen 800 MG TAB PO PRN (11:31)
[2023-03-13] MEDS ORDERED: hydrALAZINE 20 MG/ML VIAL SLOW IVP PRN (11:31)
[2023-03-13] MEDS ORDERED: Glucagon 1 MG/ML KIT IM PRN (11:31)
[2023-03-13] MEDS ORDERED: Ipratropium/Albuterol 3 ML NEB NEB PRN (11:31)
[2023-03-13] MEDS ORDERED: Morphine 2 MG/ML VIAL SLOW IVP PRN (11:31)
[2023-03-13] MEDS ORDERED: Morphine 4 MG/ML VIAL SLOW IVP PRN (11:31)
[2023-03-13] MEDS ORDERED: Ondansetron PF 4 MG/2 ML Vial IVP PRN (11:31)
[2023-03-13] MEDS ORDERED: Ondansetron ODT 8 MG TAB PO PRN (11:43)
[2023-03-13] MEDS: Lactated Ringer's 1,000 ML IV SCH (12:03)
[2023-03-13] MEDS ORDERED: HYDROcodone/Acetaminophen 7.5/325 mg Tablet ONE (16:48)
[2023-03-13] MEDS: HYDROcodone/Acetaminophen 7.5/325 mg Tablet PO PRN ×2 (16:55→23:01)
[2023-03-13] MEDS: Famotidine 20 MG TAB PO SCH (21:25)
[2023-03-13] MEDS: Gabapentin 300 MG CAP PO SCH ×2 (21:25→21:39)
[2023-03-14] MEDS: Lactated Ringer's 1,000 ML IV SCH ×3 (02:57→23:24)
[2023-03-14] MEDS: HYDROcodone/Acetaminophen 7.5/325 mg Tablet PO PRN ×3 (05:07→18:48)
[2023-03-14 05:53] LABS: #Monocytes 0.9 thou/uL (0.11-0.59); #Neutrophils 5.2 thou/uL (1.40-6.50); %Basophils 0.3 % (0.0-1.0); %Lymphocytes 18.1 % (21.0-51.0); %Monocytes 11.6 % (0.0-10.0); %Neutrophils 69.9 % (42.0-75.0); Hematocrit 21.2 % (36.0-47.0); Hemoglobin 6.9 g/dL (12.0-16.0); Mean Corpuscular HGB CONC 32.5 g/dL (32.0-36.0); Mean Corpuscular Hemoglobin 32.7 pg (27.0-31.0); Mean Corpuscular Volume 100.5 fl (78.0-98.0); Mean Platelet Volume 9.6 fL (7.4-10.4); Platelet Count 154 10x3/uL (130-400); RBC Distribution Width 15.4 % (11.5-14.5); Red Blood Cell (RBC) Count 2.11 mill/uL (4.20-5.40); White Blood Cell (WBC) Count 7.4 10x3/uL (4.8-10.8)
[2023-03-14] MEDS: Famotidine 20 MG TAB PO SCH ×2 (09:29→20:41)
[2023-03-14] MEDS: Gabapentin 300 MG CAP PO SCH ×2 (09:29→20:40)
[2023-03-14] MEDS: Lisinopril 20 MG TAB PO SCH (09:29)
[2023-03-14 09:35] LABS: #Neutrophils 4.9 thou/uL (1.40-6.50); %Basophils 0.1 % (0.0-1.0); %Lymphocytes 21.4 % (21.0-51.0); %Monocytes 12.7 % (0.0-10.0); %Neutrophils 65.5 % (42.0-75.0); Hematocrit 20.4 % (36.0-47.0); Hemoglobin 6.6 g/dL (12.0-16.0); Mean Corpuscular HGB CONC 32.4 g/dL (32.0-36.0); Mean Corpuscular Hemoglobin 32.7 pg (27.0-31.0); Mean Platelet Volume 9.8 fL (7.4-10.4); Platelet Count 142 10x3/uL (130-400); RBC Distribution Width 15.8 % (11.5-14.5); Red Blood Cell (RBC) Count 2.02 mill/uL (4.20-5.40); White Blood Cell (WBC) Count 7.5 10x3/uL (4.8-10.8)
[2023-03-14 21:48] LABS: Hematocrit 25.7 % (36.0-47.0); Hemoglobin 8.5 g/dL (12.0-16.0)
[2023-03-15] MEDS: HYDROcodone/Acetaminophen 7.5/325 mg Tablet PO PRN ×3 (00:45→12:32)
[2023-03-15 06:36] LABS: #Eosinphils 0.2 thou/uL (0.0-0.7); #Monocytes 0.7 thou/uL (0.11-0.59); #Neutrophils 4.1 thou/uL (1.40-6.50); %Basophils 0.3 % (0.0-1.0); %Eosinophils 2.3 % (0.0-10.0); %Lymphocytes 28.8 % (21.0-51.0); %Monocytes 10.2 % (0.0-10.0); %Neutrophils 58.1 % (42.0-75.0); Hematocrit 25.9 % (36.0-47.0); Hemoglobin 8.6 g/dL (12.0-16.0); Mean Corpuscular HGB CONC 33.2 g/dL (32.0-36.0); Mean Corpuscular Hemoglobin 33.1 pg (27.0-31.0); Mean Corpuscular Volume 99.6 fl (78.0-98.0); Mean Platelet Volume 9.4 fL (7.4-10.4); Platelet Count 127 10x3/uL (130-400); RBC Distribution Width 16.5 % (11.5-14.5); White Blood Cell (WBC) Count 7.1 10x3/uL (4.8-10.8)
[2023-03-15 07:52] LABS: Anion Gap 12 mmol/L (10-20); BUN (Urea Nitrogen) 9 mg/dL (9.8-20.1); Calc. Creatinine Clearance 63 mL/min (70-130); Calcium 8.2 mg/dL (7.8-10.44); Carbon Dioxide 21 mmol/L (23-31); Chloride 111 mmol/L (98-107); Estimated GFR 77; Glucose 84 mg/dL (80-115); Potassium 3.9 mmol/L (3.5-5.1); Sodium 140 mmol/L (136-145)
[2023-03-15 07:59] VITALS: TEMP 98.6
[2023-03-15] MEDS: Lisinopril 20 MG TAB PO SCH (09:38)
[2023-03-15] MEDS: Famotidine 20 MG TAB PO SCH (09:38)
[2023-03-15] MEDS: Gabapentin 300 MG CAP PO SCH (09:38)
[2023-03-15 09:43] VITALS: BP 165/97
== END 2023-03-15 12:38 | disposition home or self-care (01) | DRG 580 ==
LOC: SDC 06:01 → SURG A 18:03 → OBSVTOIN 03-15 08:42
PROVIDERS: ADMIT Specialist; ATTEND Specialist
PROC: 0JX70ZZ Transfer Back Subcutaneous Tissue and Fascia, Open Approach (ICD-10-PCS; principal; 2023-03-13)
PROC: 0HTV0ZZ Resection of Bilateral Breast, Open Approach (ICD-10-PCS; 2023-03-13)
PROC: 0HRV07Z Replacement of Bilateral Breast with Autologous Tissue Substitute, Open Approach (ICD-10-PCS; 2023-03-13)
PROC: 07B50ZZ Excision of Right Axillary Lymphatic, Open Approach (ICD-10-PCS; 2023-03-13)
DX: C50.911 Malignant neoplasm of unspecified site of right female breast (principal); D62 Acute posthemorrhagic anemia; Z79.899 Other long term (current) drug therapy; I10 Essential (primary) hypertension; Z98.890 Other specified postprocedural states; Z80.3 Family history of malignant neoplasm of breast; Z88.5 Allergy status to narcotic agent
CPT/HCPCS: 36415; 36416; 36430; 80048; 85025; 86850; 86900; 86901; 88307; 96374; 96375; G0378; J1100; J1885; J2250; J2272; J2405; J2704; J2765; J2795; J3010; J3490; J7120; P9016; Q0169; S0028

== ENCOUNTER 2023-04-29 18:52 | Emergency (ER) | payer OTHER ==
[2023-04-29 20:25] LABS: #Eosinphils 0.1 thou/uL (0.0-0.7); #Monocytes 0.8 thou/uL (0.11-0.59); #Neutrophils 4.7 thou/uL (1.40-6.50); %Basophils 0.6 % (0.0-1.0); %Eosinophils 1.8 % (0.0-10.0); %Lymphocytes 16.7 % (21.0-51.0); %Monocytes 11.2 % (0.0-10.0); %Neutrophils 69.4 % (42.0-75.0); Hematocrit 27.2 % (36.0-47.0); Hemoglobin 8.7 g/dL (12.0-16.0); Mean Corpuscular Hemoglobin 31.4 pg (27.0-31.0); Mean Corpuscular Volume 98.2 fl (78.0-98.0); Mean Platelet Volume 8.9 fL (7.4-10.4); Platelet Count 243 10x3/uL (130-400); RBC Distribution Width 15.6 % (11.5-14.5); Red Blood Cell (RBC) Count 2.77 mill/uL (4.20-5.40); White Blood Cell (WBC) Count 6.7 10x3/uL (4.8-10.8)
[2023-04-29 20:44] LABS: ALT (SGPT) 8 U/L (8-55); AST (SGOT) 12 U/L (5-34); Albumin 3.4 g/dL (3.4-4.8); Alkaline Phosphatase 154 U/L (40-110); Anion Gap 12 mmol/L (10-20); BUN (Urea Nitrogen) 16 mg/dL (9.8-20.1); Bilirubin, Total 0.3 mg/dL (0.2-1.2); Calc. Creatinine Clearance 0 mL/min (70-130); Calcium 8.3 mg/dL (7.8-10.44); Carbon Dioxide 19 mmol/L (23-31); Chloride 109 mmol/L (98-107); Estimated GFR 66; Glucose 77 mg/dL (80-115); INR-International Normal Ratio 1.2; PTT 34.3 sec (22.9-36.1); Potassium 3.8 mmol/L (3.5-5.1); Protein, Total 6.4 g/dL (5.8-8.1); Prothrombin Time 15.3 sec (12.0-14.7); Sodium 136 mmol/L (136-145)
== END 2023-04-29 21:42 | disposition home or self-care (01) ==
LOC: ERS 18:52
DX: T81.41XA Infection following a procedure, superficial incisional surgical site, initial encounter (principal); I10 Essential (primary) hypertension
CPT/HCPCS: 36415; 71045; 80053; 85025; 85610; 85730

== ENCOUNTER 2023-05-02 08:48 | Day surgery (SDC) | payer OTHER ==
[~2023-05-02 08:48] MED LIST changes: -Ondansetron HCl/PF 10 MG in Sodium Chloride 0.9% 50 ML IVPB SCH
[2023-05-02 09:23] VITALS: BP 118/54; TEMP 97.2
[2023-05-02] MEDS: Ondansetron 2MG/ML MDV 10 MG in Sodium Chloride 0.9% 50 ML IVPB SCH (09:33)
[2023-05-02] MEDS: WATER IV SCH (09:51)
[2023-05-02] MEDS: [UNRECOGNIZED DRUG - OTHER] IV SCH (09:51)
[2023-05-02] MEDS: DEXTROSE 5% IV SCH (09:51)
== END 2023-05-02 10:46 | disposition home or self-care (01) ==
LOC: ONC/OP 08:48
PROVIDERS: ATTEND Internal Medicine Hematology & Oncology
DX: C50.211 Malignant neoplasm of upper-inner quadrant of right female breast (principal); D50.0 Iron deficiency anemia secondary to blood loss (chronic); M81.8 Other osteoporosis without current pathological fracture; Z88.6 Allergy status to analgesic agent; Z88.5 Allergy status to narcotic agent
CPT/HCPCS: 96367; 96413; J9358; J1642; J2405; J7070

== ENCOUNTER 2023-05-02 12:25 | Outpatient (CLI) | payer OTHER, MEDICAID | END 2023-05-02 12:26 | disposition home or self-care (01) | LOC: ULT 12:25 | PROVIDERS: ATTEND Internal Medicine Hematology & Oncology | DX: Z51.11 Encounter for antineoplastic chemotherapy (principal); C50.919 Malignant neoplasm of unspecified site of unspecified female breast; I08.2 Rheumatic disorders of both aortic and tricuspid valves | CPT/HCPCS: 80053; 93306; 96367; 96413; J1642; J2405; J7070; J9358 ==

== ENCOUNTER 2023-05-28 13:59 | Inpatient (IN) | payer OTHER, MEDICAID ==
[2023-05-28] MEDS ORDERED: Cefepime 2 GM VIAL ONE (15:09)
[2023-05-28] MEDS ORDERED: Sodium Chloride 0.9% 100 ML ONE (15:09)
[2023-05-28 15:22] LABS: Hematocrit 30.4 % (36.0-47.0); Hemoglobin 9.8 g/dL (12.0-16.0); Mean Corpuscular HGB CONC 32.2 g/dL (32.0-36.0); Mean Corpuscular Hemoglobin 31.9 pg (27.0-31.0); Mean Platelet Volume 10.7 fL (7.4-10.4); Platelet Count 82 10x3/uL (130-400); Red Blood Cell (RBC) Count 3.07 mill/uL (4.20-5.40)
[2023-05-28 15:38] LABS: ALT (SGPT) 21 U/L (8-55); AST (SGOT) 36 U/L (5-34); Albumin 3.1 g/dL (3.4-4.8); Alkaline Phosphatase 207 U/L (40-110); Anion Gap 11 mmol/L (10-20); BUN (Urea Nitrogen) 37 mg/dL (9.8-20.1); Bilirubin, Total 0.3 mg/dL (0.2-1.2); Calc. Creatinine Clearance 0 mL/min (70-130); Calcium 8.2 mg/dL (7.8-10.44); Carbon Dioxide 19 mmol/L (23-31); Chloride 114 mmol/L (98-107); Estimated GFR 23; Globulin 3.1 g/dL (2.4-3.5); Glucose 138 mg/dL (80-115); Protein, Total 6.2 g/dL (5.8-8.1); Sodium 140 mmol/L (136-145)
[2023-05-28 15:47] LABS: Anisocytosis SLIGHT = 6-15 cells HPF (0-5); Band 22 % (5-11); Lymphocytes 1 % (21-51); Monocytes 1 % (0-10); Neutrophil 76 % (42-75); Ovalocytes SLIGHT = 2-5 cells HPF (0-1); Platelet Adequacy Comment Platelets Decreased; Schistocytes SLIGHT = 2-5 cells HPF (0-1)
[2023-05-28 16:17] LABS: Influenza A by NAA Not Detected (NotDetected); Influenza B by NAA Not Detected (NotDetected); SARS-CoV-2 NAA Rapid Test Not Detected (NotDetected)
[2023-05-28] MEDS ORDERED: Acetaminophen 500 MG TAB ONE (17:56)
[2023-05-28 18:19] LABS: Bacteria/HPF 1+ HPF (None Seen); Bilirubin Negative (Negative); Blood, Urine 1+ (Negative); CAUTI Indications for Culture Alt mental st,lethar; Clarity Clear (Clear); Glucose, Urine (Dipstick) Normal (Negative); Ketone, Urine Negative (Negative); Leukocyte 250 Leu/uL (Negative); Nitrite Negative (Negative); Protein, Urine (Dipstick) 30 mg/dL (Neg-Trace); Specific Gravity, Urine 1.016 (1.002-1.036); Squamous Epithelial 0-3 HPF (0-3); Urobilinogen Normal mg/dL (Less than 2); WBC/HPF 21-50 HPF (0-3); pH, Urine 5.5 (5.0-9.0)
[2023-05-28 18:20] LABS: Urine Culture Reflex Yes Yes
[2023-05-28 21:41] VITALS: BMI 30.3
[2023-05-28] MEDS ORDERED: Vancomycin Dose by Levels Sliding Scale (Wt <71) FS SCH (22:00)
[2023-05-28] MEDS: Lactated Ringer's 1,000 ML IV SCH (22:34)
[2023-05-28] MEDS: Albumin 25% 25 GM (100 mL) BOT IVPB SCH (22:43)
[2023-05-28] MEDS: Gabapentin 300 MG CAP PO SCH (22:57)
[2023-05-28] MEDS: Acetaminophen 325 MG TAB PO PRN (23:01)
[2023-05-29] MEDS: Vancomycin (BATCH) 1.5 GM in Premix 1 BAG IVPB SCH (00:05)
[2023-05-29] MEDS: Vancomycin 1 GM in Premix 1 BAG IVPB SCH (00:07)
[2023-05-29] MEDS: Albumin 25% 25 GM (100 mL) BOT IVPB SCH (00:07)
[2023-05-29] MEDS: HYDROcodone/Acetaminophen 5/325 mg Tablet PO PRN (00:29)
[2023-05-29 05:59] LABS: Hematocrit 23.2 % (36.0-47.0); Hemoglobin 7.5 g/dL (12.0-16.0); Mean Corpuscular HGB CONC 32.3 g/dL (32.0-36.0); Mean Corpuscular Hemoglobin 31.4 pg (27.0-31.0); Mean Corpuscular Volume 97.1 fL (78.0-98.0); Mean Platelet Volume 11.1 fL (7.4-10.4); Platelet Count 56 10x3/uL (130-400); RBC Distribution Width 17.5 % (11.5-14.5); Red Blood Cell (RBC) Count 2.39 mill/uL (4.20-5.40)
[2023-05-29 06:13] LABS: Anion Gap 15 mmol/L (10-20); BUN (Urea Nitrogen) 37 mg/dL (9.8-20.1); Calc. Creatinine Clearance 32 mL/min (70-130); Calcium 8.7 mg/dL (7.8-10.44); Carbon Dioxide 16 mmol/L (23-31); Chloride 117 mmol/L (98-107); Estimated GFR 35; Glucose 161 mg/dL (80-115); Potassium 3.9 mmol/L (3.5-5.1); Sodium 144 mmol/L (136-145)
[2023-05-29 06:30] LABS: Anisocytosis SLIGHT = 6-15 cells HPF (0-5); Band 12 % (5-11); Burr Cells SLIGHT = 2-5 cells HPF (0-1); Large Platelets 1.9 % (0-5); Lymphocytes 6 % (21-51); Neutrophil 83 % (42-75); Platelet Adequacy Comment Platelets Decreased; Smudge Cells 6.7 %; Toxic Granulation SLIGHT
[2023-05-29] MEDS: Famotidine 20 MG TAB PO SCH (09:37)
[2023-05-29] MEDS: Gabapentin 300 MG CAP PO SCH (09:37)
[2023-05-29] MEDS: Vancomycin HCl 125 MG Capsule PO SCH (12:36)
[2023-05-29] MEDS: Lactated Ringer's 1,000 ML IV SCH (15:46)
[2023-05-29 16:01] LABS: Vancomycin, Trough 14.4 ug/mL
[2023-05-29 16:25] LABS: Campy jejuni + coli by PCR Negative (Negative); STEC Shiga Toxin 1+2 Negative (Negative); Salmonella spp. by PCR Negative (Negative); Shigella spp + EIEC by PCR Negative (Negative)
[2023-05-29] MEDS: Vancomycin HCl 500 MG in Sodium Chloride 0.9% 100 ML IV SCH (17:11)
[2023-05-29] MEDS: Cefepime 1 GM in Sodium Chloride 0.9% 100 ML IVPB SCH (17:12)
[2023-05-29] MEDS: Promethazine 25 MG TAB PO PRN (20:10)
[2023-05-30 06:28] LABS: Hematocrit 21.9 % (36.0-47.0); Mean Corpuscular Hemoglobin 31.3 pg (27.0-31.0); Mean Corpuscular Volume 97.8 fL (78.0-98.0); Mean Platelet Volume 10.7 fL (7.4-10.4); Platelet Count 43 10x3/uL (130-400); RBC Distribution Width 17.6 % (11.5-14.5); Red Blood Cell (RBC) Count 2.24 mill/uL (4.20-5.40)
[2023-05-30 06:59] LABS: Anisocytosis SLIGHT = 6-15 cells HPF (0-5); Band 6 % (5-11); Lymphocytes 9 % (21-51); Macrocytosis SLIGHT = 6-15 cells HPF (0-5); Monocytes 1 % (0-10); Neutrophil 85 % (42-75); Platelet Adequacy Comment Platelets Decreased; Smudge Cells 8.7 %
[2023-05-30 07:00] LABS: ALT (SGPT) 20 U/L (8-55); AST (SGOT) 35 U/L (5-34); Albumin 3.7 g/dL (3.4-4.8); Alkaline Phosphatase 124 U/L (40-110); Anion Gap 13 mmol/L (10-20); BUN (Urea Nitrogen) 36 mg/dL (9.8-20.1); Bilirubin, Total 0.5 mg/dL (0.2-1.2); Calc. Creatinine Clearance 43 mL/min (70-130); Calcium 8.7 mg/dL (7.8-10.44); Carbon Dioxide 17 mmol/L (23-31); Chloride 115 mmol/L (98-107); Estimated GFR 51; Globulin 2.4 g/dL (2.4-3.5); Glucose 103 mg/dL (80-115); Potassium 3.9 mmol/L (3.5-5.1); Protein, Total 6.1 g/dL (5.8-8.1); Sodium 141 mmol/L (136-145)
[2023-05-30] MEDS: LevoFLOXacin 750 MG TAB PO SCH (09:30)
[2023-05-30] MEDS: Lactated Ringer's 1,000 ML IV SCH (09:31)
[2023-05-30] MEDS: Furosemide 20 MG (2 mL) VIAL SLOW IVP SCH (20:26)
[2023-05-31 05:07] LABS: Hematocrit 24.4 % (36.0-47.0); Hemoglobin 7.9 g/dL (12.0-16.0); Mean Corpuscular HGB CONC 32.4 g/dL (32.0-36.0); Mean Corpuscular Hemoglobin 30.7 pg (27.0-31.0); Mean Corpuscular Volume 94.9 fL (78.0-98.0); Platelet Count 45 10x3/uL (130-400); RBC Distribution Width 17.1 % (11.5-14.5); Red Blood Cell (RBC) Count 2.57 mill/uL (4.20-5.40)
[2023-05-31 05:20] LABS: ALT (SGPT) 21 U/L (8-55); AST (SGOT) 31 U/L (5-34); Albumin 3.8 g/dL (3.4-4.8); Alkaline Phosphatase 141 U/L (40-110); Anion Gap 15 mmol/L (10-20); BUN (Urea Nitrogen) 25 mg/dL (9.8-20.1); Bilirubin, Total 0.6 mg/dL (0.2-1.2); Calc. Creatinine Clearance 48 mL/min (70-130); Calcium 8.8 mg/dL (7.8-10.44); Carbon Dioxide 20 mmol/L (23-31); Chloride 109 mmol/L (98-107); Estimated GFR 58; Globulin 2.8 g/dL (2.4-3.5); Glucose 99 mg/dL (80-115); Potassium 3.1 mmol/L (3.5-5.1); Protein, Total 6.6 g/dL (5.8-8.1); Sodium 141 mmol/L (136-145)
[2023-05-31 05:47] LABS: Platelet Adequacy Comment Platelets Decreased; RBC Morphology Within Normal Limits; Toxic Granulation SLIGHT
[2023-05-31 05:56] LABS: #Basophils 0.03 10x3/uL (0.0-0.2); %Basophils 0.5 % (0.0-1.0); %Eosinophils 1.3 % (0.0-10.0); %Lymphocytes 14.1 % (21.0-51.0); %Neutrophils 79.7 % (42.0-75.0)
[2023-05-31] MEDS ORDERED: Electrolyte Replacement Protocol 1 EACH FS SCH (08:15)
[2023-05-31 09:04] LABS: Magnesium 1.8 mg/dL (1.6-2.6)
[2023-05-31] MEDS: Potassium Chloride 20 MEQ TAB PO SCH (09:09)
[2023-05-31] MEDS ORDERED: Artificial Tear Sol 15 ML BOT EA EYE PRN (09:41)
[2023-05-31] MEDS ORDERED: Moisturizing Cream (Eucerin) 113 GM JAR TOP PRN (09:41)
[2023-05-31] MEDS ORDERED: Sodium Chloride 0.65% Nasal 44 ML BOT EA NARE PRN (09:41)
[2023-05-31] MEDS: Magnesium 2 GM/50 ML(in water) 2 GM in Premix 1 BAG IVPB SCH (11:39)
[2023-05-31] MEDS: Loperamide HCl 2 MG CAP PO PRN (20:19)
[2023-06-01 04:42] LABS: ALT (SGPT) 19 U/L (8-55); AST (SGOT) 23 U/L (5-34); Alkaline Phosphatase 131 U/L (40-110); Anion Gap 12 mmol/L (10-20); BUN (Urea Nitrogen) 13 mg/dL (9.8-20.1); Bilirubin, Total 0.6 mg/dL (0.2-1.2); Calc. Creatinine Clearance 61 mL/min (70-130); Calcium 8.9 mg/dL (7.8-10.44); Carbon Dioxide 21 mmol/L (23-31); Chloride 111 mmol/L (98-107); Estimated GFR 78; Glucose 99 mg/dL (80-115); Potassium 3.5 mmol/L (3.5-5.1); Sodium 140 mmol/L (136-145)
[2023-06-01] MEDS: Potassium Chloride 20 MEQ TAB PO SCH (08:17)
[2023-06-01] MEDS: Lactated Ringer's 500 ML IV SCH (10:10)
[2023-06-01] MEDS: Loperamide HCl 2 MG CAP PO PRN (11:36)
[2023-06-01 11:40] VITALS: BP 126/67; TEMP 98.7
== END 2023-06-01 13:30 | disposition home or self-care (01) | DRG 314 ==
LOC: ERS 13:59 → 2NO 17:58
PROVIDERS: ADMIT Family Medicine; ATTEND Family Medicine
PROC: 30233J1 Transfusion of Nonautologous Serum Albumin into Peripheral Vein, Percutaneous Approach (ICD-10-PCS; principal; 2023-05-28)
DX: I95.9 Hypotension, unspecified (principal); J96.01 Acute respiratory failure with hypoxia; N17.0 Acute kidney failure with tubular necrosis; C79.31 Secondary malignant neoplasm of brain; E87.20 Acidosis, unspecified; C50.919 Malignant neoplasm of unspecified site of unspecified female breast; D64.9 Anemia, unspecified; D69.6 Thrombocytopenia, unspecified; G62.9 Polyneuropathy, unspecified; Z90.49 Acquired absence of other specified parts of digestive tract; Z90.11 Acquired absence of right breast and nipple; Z90.12 Acquired absence of left breast and nipple; Z98.890 Other specified postprocedural states; Z88.5 Allergy status to narcotic agent; Z87.891 Personal history of nicotine dependence
CPT/HCPCS: 36415; 36416; 71045; 74176; 80048; 80053; 80202; 81001; 83605; 83735; 85025; 86850; 86870; 86900; 86901; 86922; 87040; 87086; 87324; 87449; 87493; 87505; 93005; 96361; 96365; 96375; J0692; J1940; J3370; J3475; J3490; J7120; P9047; Q0169

== ENCOUNTER 2023-07-31 13:05 | Outpatient (CLI) | payer OTHER, MEDICAID | END 2023-07-31 13:06 | disposition home or self-care (01) | LOC: ULT 13:05 | PROVIDERS: ATTEND Internal Medicine Hematology & Oncology | DX: Z51.11 Encounter for antineoplastic chemotherapy (principal); C50.211 Malignant neoplasm of upper-inner quadrant of right female breast; I08.3 Combined rheumatic disorders of mitral, aortic and tricuspid valves | CPT/HCPCS: 93306 ==

== ENCOUNTER 2023-08-01 09:08 | Day surgery (SDC) | payer OTHER ==
[2023-08-01 09:45] VITALS: BP 132/60; TEMP 98.2
[2023-08-01] MEDS: Dexamethasone 10 MG in Sodium Chloride 0.9% 50 ML IVPB SCH (09:45)
[2023-08-01] MEDS ORDERED: PALONOSETRON HCL 0.05 MG/ML 5 ML VIAL ONE (10:03)
[2023-08-01] MEDS: Fosaprepitant Dimeglumine 150 MG in 0.9 % Sodium Chloride 145 ML IVPB SCH (10:11)
[2023-08-01] MEDS: PALONOSETRON HCL 0.05 MG/ML 5 ML VIAL IVP SCH (10:11)
[2023-08-01] MEDS: [UNRECOGNIZED DRUG - OTHER] IV SCH (10:57)
[2023-08-01] MEDS: WATER IV SCH (10:57)
[2023-08-01] MEDS: DEXTROSE 5% IV SCH (10:57)
== END 2023-08-01 12:27 | disposition home or self-care (01) ==
LOC: ONC/OP 09:08
PROVIDERS: ATTEND Internal Medicine Hematology & Oncology
DX: C50.211 Malignant neoplasm of upper-inner quadrant of right female breast (principal); D50.0 Iron deficiency anemia secondary to blood loss (chronic); M81.8 Other osteoporosis without current pathological fracture; Z88.5 Allergy status to narcotic agent
CPT/HCPCS: 96367; 96375; 96413; J1453; J2469; J9358; J1100; J1642; J7070

== ENCOUNTER 2023-08-02 10:43 | Day surgery (SDC) | payer OTHER ==
[~2023-08-02 10:43] MED LIST changes: -DEXTROSE 5% IV SCH; -Ondansetron 2MG/ML MDV 10 MG in Sodium Chloride 0.9% 50 ML IVPB SCH; +PEGFILGRASTIM-JMDB 6 MG/0.6 ML SYRINGE SQ SCH; -WATER IV SCH; -[UNRECOGNIZED DRUG - OTHER] IV SCH
[2023-08-02 10:59] VITALS: BP 120/81; TEMP 97.4
[2023-08-02] MEDS: PEGFILGRASTIM-PBBK 6 MG/0.6 ML SYRINGE SQ SCH (11:04)
== END 2023-08-02 11:18 | disposition home or self-care (01) ==
LOC: ONC/OP 10:43
PROVIDERS: ATTEND Internal Medicine Hematology & Oncology
DX: C50.211 Malignant neoplasm of upper-inner quadrant of right female breast (principal); D50.0 Iron deficiency anemia secondary to blood loss (chronic); M81.8 Other osteoporosis without current pathological fracture; Z79.899 Other long term (current) drug therapy; Z88.5 Allergy status to narcotic agent
CPT/HCPCS: 96372; Q5130

== ENCOUNTER 2023-08-20 09:11 | Outpatient (CLI) | payer OTHER, MEDICAID ==
[2023-08-20] MEDS ORDERED: Iopamidol 370 76% 100 ML VIAL ONE (10:13)
== END 2023-08-20 09:12 | disposition home or self-care (01) ==
LOC: NM 09:11
PROVIDERS: ATTEND Internal Medicine Hematology & Oncology
DX: C50.919 Malignant neoplasm of unspecified site of unspecified female breast (principal); C79.51 Secondary malignant neoplasm of bone; R91.8 Other nonspecific abnormal finding of lung field
CPT/HCPCS: 71260; 74177; 78306; 82565; A9503; Q9967

== ENCOUNTER 2024-03-13 08:06 | Outpatient (CLI) | payer OTHER | END 2024-03-13 08:07 | disposition home or self-care (01) | LOC: CT 08:06 | PROVIDERS: ATTEND Internal Medicine Hematology & Oncology | DX: C50.211 Malignant neoplasm of upper-inner quadrant of right female breast (principal); D50.0 Iron deficiency anemia secondary to blood loss (chronic); M81.8 Other osteoporosis without current pathological fracture; Z79.899 Other long term (current) drug therapy; R93.7 Abnormal findings on diagnostic imaging of other parts of musculoskeletal system | CPT/HCPCS: 71260; 74177; 78306; A9503 ==

== ENCOUNTER 2024-10-31 08:25 | Outpatient (CLI) | payer OTHER ==
[2024-10-31 09:19] LABS: Estimated GFR - POC 61.0
[2024-10-31] MEDS ORDERED: Iopamidol 370 76% 100 ML VIAL ONE (15:31)
== END 2024-10-31 08:26 | disposition home or self-care (01) ==
LOC: CT 08:25
PROVIDERS: ATTEND Internal Medicine Hematology & Oncology
DX: C50.211 Malignant neoplasm of upper-inner quadrant of right female breast (principal); D50.0 Iron deficiency anemia secondary to blood loss (chronic); M81.8 Other osteoporosis without current pathological fracture; M89.9 Disorder of bone, unspecified; J98.4 Other disorders of lung; E04.1 Nontoxic single thyroid nodule; K76.0 Fatty (change of) liver, not elsewhere classified; N28.1 Cyst of kidney, acquired; N83.8 Other noninflammatory disorders of ovary, fallopian tube and broad ligament; Z90.49 Acquired absence of other specified parts of digestive tract; Z79.899 Other long term (current) drug therapy
CPT/HCPCS: 36415; 71260; 74177; 82565

== ENCOUNTER 2024-11-21 09:16 | Outpatient (CLI) | payer OTHER | END 2024-11-21 09:17 | disposition home or self-care (01) | LOC: NM 09:16 | PROVIDERS: ATTEND Internal Medicine Hematology & Oncology | DX: C50.211 Malignant neoplasm of upper-inner quadrant of right female breast (principal); D50.0 Iron deficiency anemia secondary to blood loss (chronic); M81.8 Other osteoporosis without current pathological fracture; Z79.899 Other long term (current) drug therapy | CPT/HCPCS: 78306; A9503 ==

== ENCOUNTER 2025-01-15 10:43 | Outpatient (CLI) | payer OTHER ==
[2025-01-15 11:15] LABS: Estimated GFR - POC 69.0
== END 2025-01-15 10:44 | disposition home or self-care (01) ==
LOC: SJX 10:43
PROVIDERS: ATTEND Internal Medicine Hematology & Oncology
DX: M81.8 Other osteoporosis without current pathological fracture (principal); C50.211 Malignant neoplasm of upper-inner quadrant of right female breast; D50.0 Iron deficiency anemia secondary to blood loss (chronic); Z79.899 Other long term (current) drug therapy
CPT/HCPCS: 36415; 70553; 76376; 82565